=== PATIENT | female | born 1980 | race Caucasian/White ===

== ENCOUNTER 2022-11-16 07:42 | Outpatient (OUT) | payer OTHER, SELFPAY ==
--- NOTE | 2022-11-16 08:01 | XR_ITS ---
The [address] [address] Patient Name: SHARI HYDE MRN: [id number] date: 1980 Sex: F Assigned Patient Location: LAB Current Patient Location: LAB Accession/Order Number: [id number] Exam Date: 11/16/2022 08:05 Report Date: 11/16/2022 11:12 At the request of: SANDRINE NAVA Procedure: XR wrist LT min 3V PROCEDURE: XR wrist LT min 3V DATE: 11/16/2022 7:05 AM CDT COMPARISONS: None CLINICAL INDICATION: Left Wrist Pain M25.532 FINDINGS: There is no evidence of fractures or other osseous abnormalities. XR/XR wrist LT min 3V IMPRESSION: Left wrist radiographs show no evidence of abnormalities. Electronically authenticated by: SANFORD OLVERA Date: 11/16/2022 11:12
[2022-11-16 08:38] LABS: Basophils Absolute Auto 0.1 10^3/uL (0.0-0.1); Basophils Percent Auto 1.2 % (0.2-2.0); Eosinophils Absolute Auto 0.3 10^3/uL (0.0-0.7); Hematocrit 43.7 % (36.0-48.0); Hemoglobin 14.5 g/dL (12.0-16.0); Immature Granulocytes Abs Auto 0.01 10^3/uL (0.00-0.03); Immature Granulocytes Pct Auto 0.2 % (0.0-0.5); Lymphocytes Absolute Auto 1.6 10^3/uL (1.2-3.8); Lymphocytes Percent Auto 33.3 % (20.5-60.0); Mean Corpuscular HGB Conc 33.2 g/dL (29.9-35.2); Mean Corpuscular Volume 87.4 fL (81.0-99.0); Mean Platelet Volume 11.6 fL (9.5-13.5); Monocytes Absolute Auto 0.4 10^3/uL (0.3-0.8); Monocytes Percent Auto 8.1 % (1.7-12.0); Neutrophils Absolute Auto 2.5 10^3/uL (1.4-6.5); Neutrophils Percent Auto 51.2 % (43.0-75.0); Platelet Count 254 10^3/uL (150-450); Red Cell Distribution Width 12.4 % (11.0-15.0); White Blood Count 4.8 10^3/uL (4.0-11.0)
[2022-11-16 08:52] LABS: Estimated Average Glucose 94 mg/dL; Glycohemoglobin A1C 4.9 % (4.5-6.2)
[2022-11-16 09:20] LABS: Alanine Aminotransferase 25 U/L (14-59); Albumin Globulin Ratio 1.2; Albumin Level 4.1 g/dL (3.4-5.0); Alkaline Phosphatase 54 U/L (46-116); Anion Gap 13.3; Aspartate Amino Transferase 57 U/L (15-37); BUN Creatinine Ratio 14.4; Bilirubin Total 0.4 mg/dL (0.2-1.0); Calcium 9.4 mg/dL (8.5-10.1); Carbon Dioxide 27.7 mmol/L (21.0-32.0); Chloride 105 mmol/L (98-107); Chol HDL Ratio 2.1; Cholesterol 187 mg/dL (<=200); Estimated GFR (African America >60 (>=60); Estimated GFR (Non-African Ame >60 (>=60); Free T3 2.55 pg/mL (2.18-3.98); Globulin 3.4 g/dL; Glucose 77 mg/dL (74-106); HDL Cholesterol 90 mg/dL (40-60); Sodium 142 mmol/L (136-145); Thyroid Stimulating Hormone 1.538 uIU/mL (0.358-3.740); Total Protein 7.5 g/dL (6.4-8.2); Triglycerides 46 mg/dL (<=150); VLDL CHOLESTEROL 9.2 mg/dL
[2022-11-17 06:09] LABS: Progesterone <0.1 ng/mL (.); Prolactin 15.5 ng/mL (4.8-23.3)
== END 2022-11-16 07:43 | disposition home or self-care (01) ==
LOC: LAB 07:45
PROVIDERS: PCP Family Medicine; Visit Provider Family Medicine
DX: Z00.00 Encounter for general adult medical examination without abnormal findings (principal); M25.532 Pain in left wrist
CPT/HCPCS: 36415; 73110; 80053; 80061; 82306; 82670; 83001; 83036; 83540; 84144; 84146; 84436; 84443; 84481; 85025

== ENCOUNTER 2022-12-07 10:13 | Outpatient (OUT) | payer OTHER, SELFPAY ==
--- NOTE | 2022-12-07 10:16 | MM_ITS ---
Patient: SHARI HYDE Exam Date: 12/07/2022 : 1980 Gender:F Ordering : DR Arnaldo Sutton . Admission #: [id number] Family : Order #: [id number] CLICK HERE TO VIEW EXAM RADIOLOGY REPORT PROCEDURE: MM TOMOSYNTHESIS SCREENING BI COMPARISON: MG MAMM DIAGNOSTIC 3D ULISSES CAD, 06/15/2022. MG MAMM DIAGNOSTIC 3D ULISSES CAD, 06/08/2021. MAMMO POST BIOPSY UNILATERAL LEFT, 05/22/2012. DIGITIZED_MAMMO, 10/02/2009. INDICATIONS: Screening Calculator Name NCI Breast Cancer Risk Assessment Tool 5 Year Breast Cancer Risk 2.00% Lifetime Breast Cancer Risk 17.20% Personal Breast Cancer No Personal Ovarian Cancer No Treatments None Family Cancers Grandmother-paternal with lung cancer at age ~65; Grandmother-maternal with lung cancer at age ~65; Grandfather-maternal with lung cancer at age ~65. LOCATION: The [facility] BREAST COMPOSITION: Extremely dense, which lowers the sensitivity of mammography. FINDINGS: DIAGNOSTIC CATEGORY 0--INCOMPLETE: NEED ADDITIONAL IMAGING EVALUATION. RIGHT BREAST: Scattered partially circumscribed masses versus cysts are barely discernible within the very dense breast parenchyma. No significant change has occurred. Spot magnification views and ultrasound evaluation recommended. The patient would likely benefit from breast MRI. LEFT BREAST: Scattered partially circumscribed masses versus cysts are barely discernible within the very dense breast parenchyma. No significant change has occurred. Spot magnification views and ultrasound evaluation recommended. The patient would likely benefit from breast MRI. RECOMMENDATIONS: ADDITIONAL MAMMOGRAPHIC VIEWS REQUIRED: BILATERAL BREASTS - RIGHT CRANIOCAUDAL SPOT MAGNIFICATION VIEW - RIGHT OBLIQUE SPOT MAGNIFICATION VIEW - LEFT CRANIOCAUDAL SPOT MAGNIFICATION VIEW - LEFT OBLIQUE SPOT MAGNIFICATION VIEW - ULTRASOUND: BILATERAL BREASTS BREAST MRI: BILATERAL BREASTS PLEASE NOTE: A NORMAL MAMMOGRAM DOES NOT EXCLUDE THE POSSIBILITY OF BREAST CANCER. A CLINICALLY SUSPICIOUS PALPABLE LUMP SHOULD BE BIOPSIED. Dictated by: Rolando Davis M.D. on 12/08/2022 at 14:04 Approved by: Rolando Davis M.D. on 12/08/2022 at 14:12
== END 2022-12-07 10:14 | disposition home or self-care (01) ==
LOC: MAMMO 10:13
PROVIDERS: PCP Family Medicine; Visit Provider Family Medicine
DX: Z12.31 Encounter for screening mammogram for malignant neoplasm of breast (principal); Z80.1 Family history of malignant neoplasm of trachea, bronchus and lung; R92.8 Other abnormal and inconclusive findings on diagnostic imaging of breast
CPT/HCPCS: 77063; 77067

== ENCOUNTER 2022-12-20 14:57 | Outpatient (OUT) | payer OTHER, SELFPAY ==
--- NOTE | 2022-12-20 15:00 | MM_ITS ---
Patient: SHARI HYDE Exam Date: 12/20/2022 : 1980 Gender:F Ordering : DR Arnaldo Sutton . Admission #: [id number] Family : Order #: [id number] CLICK HERE TO VIEW EXAM RADIOLOGY REPORT PROCEDURE: MM TOMOSYNTHESIS DIAGNOSTIC BI COMPARISON: MM TOMOSYNTHESIS SCREENING BI, 12/07/2022. MG MAMM DIAGNOSTIC 3D ULISSES CAD, 06/15/2022. MG MAMM DIAGNOSTIC 3D ULISSES CAD, 06/08/2021. MAMMO POST BIOPSY UNILATERAL LEFT, 05/22/2012. INDICATIONS: Abnormal mammogram Calculator Name NCI Breast Cancer Risk Assessment Tool 5 Year Breast Cancer Risk 2.00% Lifetime Breast Cancer Risk 17.20% Personal Breast Cancer No Personal Ovarian Cancer No Treatments None Family Cancers Grandmother-paternal with lung cancer at age ~65; Grandmother-maternal with lung cancer at age ~65; Grandfather-maternal with lung cancer at age ~65. LOCATION: The [facility] BREAST COMPOSITION: Extremely dense, which lowers the sensitivity of mammography. FINDINGS: DIAGNOSTIC CATEGORY 0--INCOMPLETE: NEED ADDITIONAL IMAGING EVALUATION. RIGHT BREAST: Spot magnification views fail to provide better delineation of multiple hyperdense areas/masses/cysts within right breast. Ultrasound evaluation is recommended. Patient now reports that she has undergone MRI of the breasts within the year. An attempt will be made to obtain the report and/or images. Depending on MRI findings further evaluation with ultrasound may be beneficial. LEFT BREAST: Spot magnification views fail to provide better delineation of multiple hyperdense areas/masses/cysts within the left breast. Ultrasound evaluation is recommended patient now reports that she has undergone MRI of the breast within the year. An attempt will be made to obtain the report and/or images. Depending on MRI findings further evaluation with ultrasound may be beneficial. RECOMMENDATIONS: ULTRASOUND: BILATERAL BREASTS PLEASE NOTE: A NORMAL MAMMOGRAM DOES NOT EXCLUDE THE POSSIBILITY OF BREAST CANCER. A CLINICALLY SUSPICIOUS PALPABLE LUMP SHOULD BE BIOPSIED. Dictated by: Rolando Davis M.D. on 12/20/2022 at 15:21 Approved by: Rolando Davis M.D. on 12/20/2022 at 15:58
== END 2022-12-20 14:58 | disposition home or self-care (01) ==
LOC: MAMMO 14:57
PROVIDERS: PCP Family Medicine; Visit Provider Family Medicine
DX: R92.8 Other abnormal and inconclusive findings on diagnostic imaging of breast (principal)
CPT/HCPCS: 77066; G0279

== ENCOUNTER 2023-02-02 09:55 | Outpatient (OUT) | payer OTHER, SELFPAY ==
--- NOTE | 2023-02-02 10:07 | US_ITS ---
Patient: SHARI HYDE Exam Date: 02/02/2023 : 1980 Gender:F Ordering : DR SANDRINE NAVA . Admission #: [id number] Family : Order #: [id number] CLICK HERE TO VIEW EXAM This report includes an Addendum and supersedes previous reports for this exam. RADIOLOGY REPORT PROCEDURE: US BREAST BI LIMITED COMPARISON: MM TOMOSYNTHESIS DIAGNOSTIC BI, 12/20/2022. MRI June 29, 2021 INDICATIONS: Abnormal Mammogram TECHNIQUE: Breast ultrasound was performed, with evaluation focusing only on specific areas of concern. FINDINGS: DIAGNOSTIC CATEGORY 3--PROBABLY BENIGN FINDING. THE FOLLOWING FINDING(S) HAS A HIGH PROBABILITY OF A BENIGN ETIOLOGY: Bilateral whole breast ultrasound demonstrates multiple focal lesions. On the right hypoechogenic lesion at the 10 o'clock position measuring 0.9 x 0.9 x 0.7 cm. Hypoechogenic lesion at the 12 o'clock position measuring 1.0 x 0.8 x 0.6 cm. Septated cystic lesion in the 11 o'clock position measuring 4.1 x 2.8 by 1.4 cm. Additional anechoic areas measuring up to 2.4 cm, simple cysts On the left complex cystic lesions 11 o'clock position measuring 1.0 x 0.8 x 0.6 cm. At the 12 o'clock position lobular cystic lesion measuring 1.4 x 1.3 x 0.8 cm. At the 1 o'clock position septated cystic lesion measuring 1.7 x 1.7 x 0.9 cm. None of the lesions demonstrate vascular flow. I favor multiple simple and complex cysts. Given the multiplicity of lesions and indeterminate nature of some of the lesions. Follow-up bilateral breast ultrasound in 6 months is recommended to document stability RECOMMENDATIONS: ULTRASOUND: BILATERAL BREASTS PLEASE NOTE: A NORMAL ULTRASOUND EXAMINATION DOES NOT EXCLUDE THE POSSIBILITY OF BREAST CANCER. A CLINICALLY SUSPICIOUS PALPABLE LUMP SHOULD BE BIOPSIED. Dictated by: Troy Quick MD on 02/03/2023 at 08:17 Approved by: Troy Quick MD on 02/03/2023 at 08:26 ADDENDUM: RECOMMENDATIONS: SHORT TERM FOLLOW-UP ULTRASOUND BILATERAL BREASTS IN 6 MONTHS. Dictated by: Troy Quick MD on 04/05/2023 at 10:57 Approved by: Troy Quick MD on 04/05/2023 at 10:57
== END 2023-02-02 09:56 | disposition home or self-care (01) ==
LOC: US 09:55
PROVIDERS: PCP Family Medicine; Visit Provider Family Medicine
DX: R92.8 Other abnormal and inconclusive findings on diagnostic imaging of breast (principal)
CPT/HCPCS: 76642

== ENCOUNTER 2023-10-20 12:55 | Outpatient (OUT) | payer OTHER, SELFPAY ==
--- NOTE | 2023-10-20 | MM_ITS ---
Patient Name: SHARI HYDE MR#: [id number] : 1980 Exam Date: 10/20/2023 Ordering Doctor: DR SANDRINE NAVA . RADIOLOGY REPORT PROCEDURE: MM TOMOSYNTHESIS DIAGNOSTIC BI, 10/20/2023, 13:06 US BREAST BI LIMITED, 10/20/2023, 13:19 COMPARISON: MM TOMOSYNTHESIS SCREENING BI, 12/07/2022. MM TOMOSYNTHESIS DIAGNOSTIC BI, 12/20/2022. INDICATIONS: Abnormal mammogram of both breasts Calculator Name NCI Breast Cancer Risk Assessment Tool 5 Year Breast Cancer Risk 2.10% Lifetime Breast Cancer Risk 16.90% Personal Breast Cancer No Personal Ovarian Cancer No Treatments None Family Cancers Grandmother-paternal with lung cancer at age ~65; Grandmother-maternal with lung cancer at age ~65; Grandfather-maternal with lung cancer at age ~65. LOCATION: The [facility] BREAST COMPOSITION: The breasts are extremely dense, which lowers the sensitivity of mammography. FINDINGS: DIAGNOSTIC CATEGORY 4--SUSPICIOUS FOR MALIGNANCY. FINDING DOES NOT EXHIBIT CLASSIC FINDINGS OF BREAST CANCER: RIGHT BREAST: New cluster of pleomorphic microcalcifications identified at the 12 o'clock position, posterior breast. Stereotactic biopsy is recommended. Multiple benign-appearing cystic lesion on ultrasound LEFT BREAST: No significant suspicious finding. Multiple benign-appearing cystic lesions on ultrasound RECOMMENDATIONS: STEREOTACTIC BREAST BIOPSY: RIGHT BREAST PLEASE NOTE: A NORMAL MAMMOGRAM DOES NOT EXCLUDE THE POSSIBILITY OF BREAST CANCER. A CLINICALLY SUSPICIOUS PALPABLE LUMP SHOULD BE BIOPSIED. Dictated by: Troy Quick MD on 10/23/2023 at 08:45 Approved by: Troy Quick MD on 10/23/2023 at 08:49
== END 2023-10-20 12:56 | disposition home or self-care (01) ==
LOC: MAMMO 12:55
PROVIDERS: PCP Family Medicine; Visit Provider Family Medicine
DX: R92.8 Other abnormal and inconclusive findings on diagnostic imaging of breast (principal); Z80.1 Family history of malignant neoplasm of trachea, bronchus and lung; R92.0 Mammographic microcalcification found on diagnostic imaging of breast
CPT/HCPCS: 76642; 77066; G0279

== ENCOUNTER 2023-11-07 10:05 | Day surgery (SDC) | payer OTHER, SELFPAY ==
--- NOTE | 2023-11-07 10:09 | MM_ITS ---
Patient Name: SHARI HYDE MR#: [id number] : 1980 Exam Date: 11/07/2023 Ordering Doctor: DR Arnaldo Sutton . RADIOLOGY REPORT PROCEDURE: MM POST BIOPSY RT COMPARISON: MM STEREOTACTIC LOC RT, 11/07/2023. INDICATIONS: Abnormal Mammogram, Macrocalcifications BREAST COMPOSITION: FINDINGS: Post-Procedure Mammogram for Marker Placement BIOPSY MARKER: A metallic marker has been placed in the targeted location within the 12 o'clock position of the right breast BREAST FINDINGS: Postprocedural changes with density and air RECOMMENDATIONS: Dictated by: Troy Quick MD on 11/07/2023 at 12:55 Approved by: Troy Quick MD on 11/07/2023 at 13:00
--- NOTE | 2023-11-07 10:09 | MM_ITS ---
Patient Name: SHARI HYDE MR#: [id number] : 1980 Exam Date: 11/07/2023 Ordering Doctor: DR Arnaldo Sutton . RADIOLOGY REPORT PROCEDURE: MM STEREOTACTIC LOC RT COMPARISON: MM TOMOSYNTHESIS DIAGNOSTIC BI, 10/20/2023. INDICATIONS: Abnormal Mammogram, Macrocalcifications DESCRIPTION: Following informed consent, digital stereotactic mammographic views were obtained to localize the lesion. Multiple vacuum-assisted core biopsies were obtained. Specimen images were obtained to confirm proper sampling. The location of the biopsy was then marked as indicated below. FINDINGS: RECOMMENDATIONS: SPECIMEN #, LOCATION: 6 samples, right breast microcalcifications SPECIMEN IMAGE: Targeted calcifications are identified in 4 of the 5 samples BIOPSY NEEDLE: 10 gauge Revolve(r) vacuum core biopsy needle. MARKER(S) PLACED: A single spring shaped metallic marker was placed in the appropriate targeted location. MEDICATION: 4 cubic cm Buffered 1% lidocaine superficial; 10 cubic cm 1% lidocaine with epinephrine deep. COMPLICATIONS: None. PATHOLOGY / LAB: Pending. CONCLUSION: 1. Technically successful biopsy of the breast lesion. 2. Pathology results are pending. An addendum will be added when pathology results are final. Dictated by: Troy Quick MD on 11/07/2023 at 13:57 Approved by: Troy Quick MD on 11/07/2023 at 13:58
[2023-11-07 10:30] VITALS: BP 120/85; PULSE 85; O2SAT 94
[2023-11-07] MEDS: LIDOCAINE HCL 10 ML, SODIUM BICARBONATE 1 MEQ INJ (11:00)
[2023-11-07] MEDS: LIDOCAINE HCL/EPINEPHRINE 10 ML, SODIUM BICARBONATE 1 MEQ INJ (11:00)
[2023-11-07] MEDS: 0.9 % SODIUM CHLORIDE 250 ML IRR (11:00)
--- NOTE | 2023-11-07 14:48 | SUR.PREOP ---
10/27/23 Pt instructed on procedure, date, time, and prep.
== END 2023-11-07 11:35 | disposition home or self-care (01) ==
LOC: MAMMO 10:05
PROVIDERS: Radiology Diagnostic Radiology; PCP Family Medicine; Visit Provider Family Medicine
DX: D05.11 Intraductal carcinoma in situ of right breast (principal)
CPT/HCPCS: 19081; 77065; 88305; 88342; 88360

== ENCOUNTER 2023-11-21 07:33 | Outpatient (RCR) | payer OTHER, SELFPAY | END 2023-11-29 23:59 | disposition home or self-care (01) | LOC: HEMC 07:33 | PROVIDERS: PCP Family Medicine; Visit Provider Internal Medicine Hematology & Oncology | DX: D05.10 Intraductal carcinoma in situ of unspecified breast (principal); Z17.0 Estrogen receptor positive status [ER+]; F41.9 Anxiety disorder, unspecified | CPT/HCPCS: G0463 ==

== ENCOUNTER 2023-12-11 15:35 | Outpatient (OUT) | payer OTHER, SELFPAY ==
--- NOTE | 2023-12-11 15:39 | PE_ITS ---
The [address] [address] Patient Name: SHARI HYDE MRN: [id number] date: 1980 Sex: F Assigned Patient Location: PETCT Current Patient Location: PETCT Accession/Order Number: [id number] Exam Date: 12/11/2023 16:00 Report Date: 12/12/2023 20:20 At the request of: PATRICK MOYER Procedure: PET skull to mid thigh PET/CT: HISTORY: Breast cancer with no history of radiation or chemotherapy. COMPARISON: Bilateral breast ultrasound 10/20/2023. TECHNIQUE: The patient was injected with 12 mCi of F-18 fluorodeoxyglucose (FDG), and an emission scan was performed from the base of the skull to the mid thigh. Noncontrast CT was performed for attenuation correction and anatomic localization. The blood glucose level was 97 mg/dl. The uptake time was 57 minutes. FINDINGS: HEAD AND NECK: There is a physiologic distribution of activity, with no hypermetabolic foci. CHEST: The SUVmax of the mediastinum = 2.7 using the patient's body weight as the normalization method. There is a hypermetabolic nodular density within the right breast on image 96, SUV max 3.3 measuring 1 cm. There is mild activity in the anterior mediastinum, image 94, SUV max 3.3, likely due to physiologic thymic activity or benign thymic hyperplasia. There is a hypermetabolic right subpectoral lymph node on image 87 with SUV max 2.4 measuring 1.2 x 1 cm. There is no other hypermetabolic axillary, subpectoral or internal mammary lymphadenopathy. There are several photopenic defects in the right breast corresponding to cysts on CT and on the prior ultrasound. ABDOMEN AND PELVIS: There is a physiologic distribution of activity within the liver, spleen, adrenal glands, urinary tract and bowel, with no hypermetabolic foci. MUSCULOSKELETAL SYSTEM: There is a physiologic distribution of activity within the bone marrow, with no hypermetabolic foci. ADDITIONAL CT FINDINGS: There are 2 polyps or mucous retention cysts in the right maxillary sinus. There are multiple diverticula in the sigmoid colon with no acute of radiculitis. The patient is status post hysterectomy. PET/PET skull to mid thigh IMPRESSION: 1. Hypermetabolic right breast nodule consistent with malignancy. 2. Hypermetabolic right subpectoral lymph node consistent metastatic disease. 3. No distant metastases. 4. Mild activity within the anterior mediastinum, likely due to physiologic thymic activity or benign thymic hyperplasia. Electronically authenticated by: ANDER SIM Date: 12/12/2023 20:20
--- OUTSIDE RECORDS SUMMARY | 2023-12-11 15:45 | XMS_ITS | CCD ---
Author Organization [facility] Care Team Providers Care Wood Piler Name Role Phone hCarlotte Allen Unavailable MIAN ., DR HIDALGO Admitting Albaro PAPPAS ., DR HIDALGO Attending Albaro SUTTON ., DR DELUCA Primary Care Unavailable MIAN ., DR HIDALGO Consulting Albaro DAVIS, DR ROLANDO Flower Consulting Unavailable MIAN ., DR HIDALGO Admitting Albaro e MIAN ., DR HIDALGO Attending Albaro SUTTON ., DR DELUCA Primary Care Unavailable MIAN ., DR HIDALGO Consulting MD Arnaldo Rios Attending Provider [phone] Arnaldo Sutton Attending Unavailable Arnaldo Sutton Admitting Unavailable Arnaldo Sutton Primary Care Physician Pasquale MOSELEY Attending Arnaldo Callahan Referring Unavailable Allergies Allergy Classification Reported Allergen(s) Allergy Type Date of Onset Reaction(s) Facility (1 source) No Known Medication Allergies; Translations: [No Known Medication Allergies] Propensity to adverse reactions (disorder) [facility] Repository Medications Current Medications Medication Drug Class(es) Dates Sig (Normalized) Sig (Original) [id number] 200 actuat albuterol 0.09 mg/actuat metered dose inhaler (1 source) beta2-Adrenergic Agonist Start: 06-08-2022 take 2 puff(s) by inhalation every four hours as needed Albuterol Sulfate HFA 108 (90 Base) MCG/ACT 2 puffs as needed Inhalation every 4 hrs Jun, Active amoxicillin 500 mg oral capsule (2 sources) Penicillin-class Antibacterial Start: 08-20-2023 take 500 mg by mouth twice daily Amoxicillin Active 500 MG PO Twice daily August 20, 2023 12:00am azithromycin 250 mg oral tablet (1 source) Macrolide Antimicrobial Start: 06-08-2022 take 2 tablets by mouth once daily, then take 1 tablet by mouth once daily, then take 2-5 tablets by mouth once daily Zithromax Z-Rafael 250 MG 2 tablets on day 1, then 1 tablet on days 2-5 Orally once a day for 5 days Jun, Active 12 hr buPROPion hydrochloride 150 mg extended release oral tablet (4 sources) Aminoketone Start: 11-20-2023 take 1 tablet by mouth once daily buPROPion 150 mg ER Tab 150 mg = 1 tab(s), Oral, Daily, Refills(s) 0 Start Date: 11/20/23 Status: Ordered Start: 08-20-2023 Bupropion Hcl Active MG PO August 20, 2023 12:00am Wellbutrin Activ e cetirizine hydrochloride 10 mg oral tablet (1 source) Histamine-1 Receptor Antagonist Start: 12-01-2023 take 1 tablet by mouth once daily cetirizine 10 mg Tab 10 mg = 1 tab(s), Oral, Daily, Refills(s) 0 Start Date: 12/01/23 Status: Ordered methylPREDNISolone 4 mg oral tablet (1 source) Corticosteroid Start: 06-08-2022 methylPREDNISolone 4 MG as directed Orally Jun, Active Problems Active Problems Problem Classification Problem Date Documented Date Episodic/Chronic Acute bronchitis (1 source) Acute bronchitis, unspecified Episodic Anxiety disorders (1 source) Anxiety 11-20-2023 Chronic Asthma (1 source) Asthma 11-20-2023 Chronic Biliary tract disease (2 sources) Biliary calculus; Translations: [Chronic cholecystitis] 01-07-2019 Episodic Cancer of breast (2 sources) Intraductal carcinoma in situ of right breast; Translations: [Intraductal carcinoma in situ of right breast] Onset: 12-01-2023 Chronic Immunizations and screening for infectious disease (1 source) Encounter for screening for human papillomavirus (HPV); Translations: [ENC SCREENING HUMAN PAPILLOMAVIRUS] Onset: 08-06-2022 Episodic Mood disorders (1 source) Depressive disorder 11-20-2023 Chronic Nonmalignant breast conditions (5 sources) Diffuse cystic mastopathy of unspecified breast; Translations: [Fibrocystic disease of breast] Onset: 06-20-2022 Chronic Nonmalignant breast conditions (7 sources) Solitary cyst of right breast; Translations: [Unspecified lump in the left breast, upper outer quadrant] Onset: 06-15-2022 Episodic Other screening for suspected conditions (not mental disorders or infectious disease) (4 sources) Encounter for screening for malignant neoplasm of cervix; Translations: [ENC SCREENING MALIG NEOPLASM CERV] Onset: 08-02-2022 Episodic Other upper respiratory disease (1 source) Seasonal allergic rhinitis 11-20-2023 Chronic Other upper respiratory infections (1 source) Acute pharyngitis, unspecified Episodic Residual codes; unclassified (1 source) Family history of malignant neoplasm of trachea, bronchus and lung; Translations: [FAM HX MALIG NEOPLSM TRACH BRON LNG] Onset: 06-20-2022 Episodic Residual codes; unclassified (1 source) Insomnia 11-20-2023 Episodic Unclassified (1 source) Breast finding 12-01-2023 Past or Other Problems Problem Classification Problem Date Documented Da te Episodic/Chronic Unclassified (1 source) Cough R05.9 Results Test Name Value Interpretation Reference Range Facility Ambulatory Visit Summaryon 0 12-01-2023 Ambulatory Visit Summary Ambulatory Visit Summary SHARI DIAL :1980 Visit Date:12/01/2023 Ambulatory Visit Instructions Your Diagnosis 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 Discharge Vitals Heart Rate (Peripheral) 74 Respiratory Rate 16 Blood Pressure 120/81 Height 177.8 cm Height 70 in Weight 68.9 kg Weight 151.58 lb BMI 21.79 Medications What How Much When Instructions Unchanged buPROPion (buPROPion 150 mg ER Tab) 1 Tablets By Mouth Every day Contact prescribing physician if questions or concerns Unchanged cetirizine (cetirizine 10 mg Tab) 1 Tablets By Mouth Every day Contact prescribing physician if questions or concerns Allergies No Known Allergies No Known Medication Allergies Problems Ongoing - Any problem that you are currently receiving treatment for. 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 Please share your experience with us by completing your survey. We appreciate your feedback and thank you for choosing us for your care. Normal [facility] 11-07-2023 L Specimen: [id number] Received: 11/08/23 Status: JAMES Reodin Num: [id number] Spec Type: Surgical Subm Dr: Arnaldo Sutton MD Tissues: A BREAST CORE NO CALCS (RT BREAST BX) Procedures: HE/4, Gross/Micro L4, CALPONIN/2, ER, MS Age/ Patient Sex Location Account Attending Physician Shari Dial 43/F LABELL [id number] Arnaldo Sutton MD SPEC NUM: [id number] RECD: 11/08/23 STATUS: JAMES KAY NUM: [id number] YASMEEN: 11/07/23- SUBM DR: Arnaldo Sutton MD ENTERED: 11/08/23 [facility] DR: Eva Machado SPEC TYPE: Surgical DEPT: ANNA DE ANDA ORDERED: HE/4, Gross/Micro L4, CALPONIN/2, ER, MS ORDERED: HE/4, Gross/Micro L4, CALPONIN/2, ER, MS Pathological Diagnosis Right breast microcalcification at 12:00, stereotactic core biopsies: -Ductal carcinoma in situ (DCIS) -Tumor size is at least 0.7 cm -ER+, MS+ -Please also see synoptic report below Cancer summary: LATERALITY: RIGHT HISTOLOGICAL TYPE: DUCTAL CARCINOMA IN SITU (DCIS) TUMOR SIZE MEASURED ON SLIDE: AT LEAST 0.7 CM ARCHITECTURAL PATTERN: CRIBRIFORM, COMEDO, NEAR SOLID, PAPILLARY NUCLEAR GRADE: G2-3 NECROSIS: IDENTIFIED, COMEDO AND FOCAL CALCIFICATION: IDENTIFIED, WITHIN DCIS LOBULAR CARCINOMA IN SITU (LCIS): NOT IDENTIFIED TUMOR MARKERS ON (A2) -ER positive, 70-80% of tumor nuclei, 2+ -MS positive, 90-100% of tumor nuclei, 3+ ---- Specimen: [id number] Received: 11/08/23 Status: JAMES Kay Num: [id number] Spec Type: Surgical Subm Dr: Arnaldo Sutton MD Tissues: A BREAST CORE NO CALCS (RT BREAST BX) Procedures: HE/4, Gross/Micro L4, CALPONIN/2, ER, MS ---- Patient: YojanaShari L [id number] (Continued) ---- Specimen: [id number] Received: 11/08/23 (Continued) Pathological Diagnosis (Continued) Signed (signature on file) Mckenna Holley MD 11/14/23 1247 ---- Specimen: [id number] Received: 11/08/23 Status: JAMES Kay Num: [id number] Spec Type: Surgical Subm Dr: Arnaldo Sutton MD Tissues: A BREAST CORE NO CALCS (RT BREAST BX) Procedures: HE/4, Gross/Micro L4, CALPONIN/2, ER, MS ---- Patient: Shari Dial Destinee [id number] (Continued) ---- Specimen: [id number] Received: 11/08/23 (Continued) Pathological Diagnosis (Continued) Note: -Calponin immunostain with appropriate control are also performed on A1 and A2, supporting the above interpretation -Rare small disrupted and/or displaced tumor clusters are otherwise negative for myoepithelial cells Clinical Information Right breast microcalcifications Gross Description Received in formalin labeled with the patient's name, date of and right breast 12:00 calcs are 7 fibrofatty tissue cores ranging from 2.1 cm to 1.2 cm in length by 0.3 cm in diameter, entirely submitted in A1?A2. Time of collection: 11/07/2023 at 1105 Time placed in formalin: 11/07/2023 at 1112 Placed in 10% neutral buffered formalin Time at gross: 11/08/2023 at 1727 TW Microscopic Description Microscopic examinations are performed supporting the above interpretation CPT Codes [id number] ---- ---- Specimen: [id number] Received: 11/08/23-0817 Status: JAMES Eliza Num: [id number] Spec Type: Surgical Subm Dr: Arnaldo Sutton MD Tissues: A BREAST CORE NO CALCS (RT BREAST BX) Procedures: AMY/Von, Gross/Micro L4, CALPONIN/2, ER, MS ---- Patient: Shari Dial [id number] (Continued) ---- Signed (signature on file) Mckenna Holley MD 11/14/23 1247 Normal [facility] Influenza virus A and B and SARS-CoV-2 (COVID-19) RNA panel - Respiratory system specon 08-20-2023 Influenza virus A and B RNA and SARS-CoV-2 (COVID-19) N gene panel RICHMOND+probe (Resp) Negative [facility] - Microbiology an d Antimicrobial susceptibilityon 08-20-2023 SARS-CoV-2 (COVID-19) RNA RICHMOND+probe Ql (Unsp spec) Negative [facility] No Panel Informationon 08-19 POC Influenza B (RICHMOND) Negative [facility] No Panel InformationOrdered By: Francisca Silvestre on 08-20-2023 Quick Strep (POC) [facility] PAP ACOG PANEL 2: 30 to 65on 08-09-2022 . . Normal [facility] Comment on above: Result Comment: Perf ormed at: WB Performed By: #### [id number] #### [facility] [address] [address] [address] Carol Holley Age Gdln ACOG Testing 30-65 Normal [facility] Comment on above: Performed By: #### [id number] #### [facility] [address] [address] [address] Carol Holley DIAGNOSIS: Comment [facility] Comment on above: Result Comment: NEGA TIVE FOR INTRAEPITHELIAL LESION OR MALIGNANCY. Performed at: WB Performed By: #### [id number] #### [facility] [address] [address] [address] Carol Holley HPV Aptima Negative Normal Negative [facility] Comment on above: Result Comment: This nucleic acid amplification test detects fourteen high-risk HPV types (16,18,31,33,35,39,45,51,52,56,58,59,66,68) without differentiation. Performed at: =G Performed By: #### [id number] #### [facility] [address] [address] [address] Carol Holley HPV Genotype Reflex Comment Normal [facility] Comment on above: Result Comment: Crit eria not met, HPV Genotype not performed. Performed at: WB Performed By: #### [id number] #### [facility] [address] [place] [address] Dr. Carol Holley Methodology: Comment Normal [facility] Comment on above: Result Comment: This liquid based ThinPrep(R) pap test was screened with the use of an image guided system. Performed at: WB Performed By: #### [id number] #### [facility] [address] [place] [address] Dr. Carol Holley Note: Comment Normal [facility] Comment on above: Result Comment: The Pap smear is a screening test designed to aid in the detection of premalignant and malignant conditions of the uterine cervix. It is not a diagnostic procedure and should not be used as the sole means of detecting cervical cancer. Both false-positive and false-negative reports do occur. . Performed at: WB Performed By: #### [id number] #### [facility] [address] [place] [address] Dr. Carol Holley Performed by: Comment Normal [facility] Comment on above: Result Comment: Juan C Le, Tiler'S Assistant (ASCP) Performed at: WB Performed By: #### [id number] #### [facility] [address] [place] [address] Dr. Carol Holley Specimen adequacy: Comment Normal [facility] Comment on above: Result Comment: Sati sfactory for evaluation. Endocervical and/or squamous metaplastic cells (endocervical component) are present. Performed at: WB Performed By: #### [id number] #### [facility] [address] [place] [address] Dr. Carol Holley MG MAMM DIAGNOSTIC 3D ULISSES CA Don 06-15-2022 MG MAMM DIAGNOSTIC 3D ULISSES CAD Patient: SHARI DIAL Exam Date: 06/15/2022 : 1980 Gender:F Ordering : DR ROCKY PAPPAS . Admission #: [id number] Family : Order #: [id number] CLICK HERE TO VIEW EXAM RADIOLOGY REPORT PROCEDURE: MAMMOGRAM DIAGNOSTIC 3D BILATERAL CAD, 06/15/2022, 13:44 ULTRASOUND BREAST LEFT LIMITED, 06/15/2022, 14:22 COMPARISON: US BREAST RIGHT LIMITED, 07/17/2020. DIGITIZED_MAMMO, 10/02/2009. MG MAMM DIAGNOSTIC 3D ULISSES CAD, 06/08/2021. US BREAST RIGHT LIMITED, 06/08/2021. INDICATIONS: Fibrocystic disease of breast Calculator Name NCI Breast Cancer Risk Assessment Tool 5 Year Breast Cancer Risk 2.00% Lifetime Breast Cancer Risk 17.20% Personal Breast Cancer No Personal Ovarian Cancer No Treatments None Family Cancers Grandmother-paternal with lung cancer at age 65; Grandmother-maternal with lung cancer at age 65; Grandfather-maternal with lung cancer at age 65. LOCATION: [facility] BREAST COMPOSITION: Extremely dense, which lowers the sensitivity of mammography. FINDINGS: DIAGNOSTIC CATEGORY 2--BENIGN FINDING: RIGHT BREAST: No significant suspicious finding. No significant change has occurred. LEFT BREAST: Skin surface marker localizing patient's palpable lump to the posterior upper-outer quadrant. Extremely dense breast parenchyma limits evaluation, but there appears to be slightly greater density in this area. Ultrasound evaluation demonstrates a benign-appearing 2.6 cm cyst corresponding to patient's palpable lump. Annual screening mammography recommended. RECOMMENDATIONS: ROUTINE MAMMOGRAM AND CLINICAL EVALUATION IN 12 MONTHS. PLEASE NOTE: A NORMAL MAMMOGRAM DOES NOT EXCLUDE THE POSSIBILITY OF BREAST CANCER. A CLINICALLY SUSPICIOUS PALPABLE LUMP SHOULD BE BIOPSIED. Dictated by: Rolando Davis M.D. on 06/15/2022 at 14:36 Approved by: Rolando Davis M.D. on 06/15/2022 at 14:40 Normal [facility] US BREAST LEFT LIMITEDon US BREAST LEFT LIMITED Patient: SHARI DIAL Exam Date: 06/15/2022 : 1980 Gender:F Ordering : DR ROCKY PAPPAS . Admission #: [id number] Family : Order #: [id number] CLICK HERE TO VIEW EXAM RADIOLOGY REPORT PROCEDURE: MAMMOGRAM DIAGNOSTIC 3D BILATERAL CAD, 06/15/2022, 13:44 ULTRASOUND BREAST LEFT LIMITED, 06/15/2022, 14:22 COMPARISON: US BREAST RIGHT LIMITED, 07/17/2020. DIGITIZED_MAMMO, 10/02/2009. MG MAMM DIAGNOSTIC 3D ULISSES CAD, 06/08/2021. US BREAST RIGHT LIMITED, 06/08/2021. INDICATIONS: Fibrocystic disease of breast Calculator Name NCI Breast Cancer Risk Assessment Tool 5 Year Breast Cancer Risk 2.00% Lifetime Breast Cancer Risk 17.20% Personal Breast Cancer No Personal Ovarian Cancer No Treatments None Family Cancers Grandmother-paternal with lung cancer at age 65; Grandmother-maternal with lung cancer at age 65; Grandfather-maternal with lung cancer at age 65. LOCATION: [facility] BREAST COMPOSITION: Extremely dense, which lowers the sensitivity of mammography. FINDINGS: DIAGNOSTIC CATEGORY 2--BENIGN FINDING: RIGHT BREAST: No significant suspicious finding. No significant change has occurred. LEFT BREAST: Skin surface marker localizing patient's palpable lump to the posterior upper-outer quadrant. Extremely dense breast parenchyma limits evaluation, but there appears to be slightly greater density in this area. Ultrasound evaluation demonstrates a benign-appearing 2.6 cm cyst corresponding to patient's palpable lump. Annual screening mammography recommended. RECOMMENDATIONS: ROUTINE MAMMOGRAM AND CLINICAL EVALUATION IN 12 MONTHS. PLEASE NOTE: A NORMAL MAMMOGRAM DOES NOT EXCLUDE THE POSSIBILITY OF BREAST CANCER. A CLINICALLY SUSPICIOUS PALPABLE LUMP SHOULD BE BIOPSIED. Dictated by: Rolando Davis M.D. on 06/15/2022 at 14:36 Approved by: Rolando Davis M.D. on 06/15/2022 at 14:40 Normal [facility] Quick Strepon 06-08-2022 S. pyogenes Org specific cx Ql (Throat) Negative [facility] Other Quick Strep [facility] Other Vital Signs Date Time Vital Sign Value Performing Clinician Facility 12-01-2023 09:24-0400 Blood Pressure Location Pasquale MOSELEY [facility] [place] 12-01-2023 09:24-0400 Diastolic blood pressure 81 mm[Hg] Pasquale MOSELEY [facility] [place] 12-01-2023 09:24-0400 Heart rate 74 /min Pasquale MOSELEY [facility] [place] 12-01-2023 09:24-0400 Respiratory rate 16 /min Pasquale MOSELEY [facility] [place] 12-01-2023 09:24-0400 Systolic blood pressure 120 mm[Hg] Pasquale MOSELEY [facility] [place] 08-20-2023 09:54-0400 Body height 177.8 cm [facility] 08-20-2023 09:54-0400 Body mass index (BMI) [Ratio] 20.7 kg/m2 [facility] 08-20-2023 09:54-0400 Body temperature 97.3 [degF] [facility] 08-20-2023 09:54-0400 Body weight 65.77 kg [facility] 08-20-2023 09:54-0400 Heart rate 96 /min [facility] 08-20-2023 09:54-0400 Respiratory rate 18 /min [facility] 08-20-2023 09:54-0400 SaO2% (BldA) [Mass fraction] 98 % [facility] 06-08-2022 10:40-0500 Body height 177.8 cm Charlotte Allen Other [facility] Other 06-08-2022 10:40-0500 Body mass index (BMI) [Ratio] 23.1 kg/m2 Charlotte Allen Other [facility] Other 06-08-2022 10:40-0500 Body temperature 98.4 [degF] Charlotte Allen Other [facility] [facility] Other 06-08-2022 10:40-0500 Body weight 73.03 kg Charlotte Allen Other [facility] Other 06-08-2022 10:40-0500 Respiratory rate 18 /min Charlotte Allen Other [facility] Other 06-08-2022 10:40-0500 SaO2% (BldA) [Mass fraction] 97 % Charlotte Allen Other [facility] Other Encounters Encounter Date Encounter Type Care Provider Facility Start: 12-01-2023 End: 12-01-2023 ambulatory Pasquale MOSELEY Facility:[facility] Start: 12-01-2023 End: 12-01-2023 Patient encounter procedure Pasquale MOSELEY [facility] [place] Start: 11-07-2023 End: 11-07-2023 ambulatory Arnaldo Sutton [facility] Work Phone: Start: 11-07-2023 End: 11-07-2023 Departed Referred MD Arnaldo Sutton Work Phone: [facility] Start: 08-20-2023 End: 08-20-2023 ambulatory [facility] Work Phone: Start: 08-20-2023 End: 08-20-2023 Patient encounter procedure [facility] Work Phone: Start: 08-02-2022 End: 08-02-[address] ROCKY PAPPAS . Facility: Start: 06-15-2022 End: 06-16-[address] ROCKY PAPPAS . Facility: Start: 06-08-2022 End: 06-08-2022 ambulatory Charlotte Allen Other [facility] Other Start: 06-08-2022 Office outpatient ne w 20 minutes Charlotte Allen [facility] Procedures Date Procedure Procedure Detail Performing Clinician Start: 11-07-2023 Stereotactically ady ded core needle biopsy of breast Pasquale MOSELEY Start: 08-20-2023 Quick Strep (POC) Start: 05-01-2012 Mammography and biop sy of left breast Pasquale MOSELEY Abdominal hysterectomy Anthony MOSELEY Cholecystectomy Pasquale NILL Transcervical sterilization Pasquale NILL Plan of Treatment Date Care Activity Detail Author [facility] Immunizations Immunization Date Immunization Notes Care Provider Fa cility 02-02-2023 influenza virus vaccine, unspecified formulation Pasquale NILL [facility] 03-23-2021 SARS-CoV-2 (COVID-19 ) mRNA-1273 vaccine Pasquale NILL [facility] 07-24-2020 SARS-CoV-2 (COVID-19 ) mRNA-1273 vaccine Pasquale NILL [facility] Comment on above: Result Comment: 2023: TPV23 06-24-2020 SARS-CoV-2 (COVID-19 ) mRNA-1273 vaccine Pasquale SANCHEZL [facility] Comment on above: Result Comment: 2023: TPV23 Payers Date Payer Category Payer Self-pay [id number] 2019 Unknown [id number] 1980 Unknown [id number] 1980 Unknown [id number] 1980 Unknown [id number] 1959 Unknown [id number] Unknown [id number] Social History Date Type Detail Facility Sex Assigned At [facility] Start: 08-20-2023 End: 12-01-2023 Tobacco smoking status NHIS Never smoked tobacco (finding) [facility] Start: 1980 Sex Assigned At Female [facility] Tobacco smoking status Never [facility] [place] Functional Status Date Assessment Result Facility 12-01-2023 Functional Status N/A [facility] [place] Clinical Note 12-01-2023 Note Date & Type Note Facility 12-01-2023 Note General Surgery Offi ce/Clinic Note Chief Complaint consultation for right breast DCIS HPI Staff 43 year old female presents on consultation from Dr. Sutton for DCIS right breast. Denies noting palpable lump. Denies breast pain. Denies skin changes other than bruising and swelling post biopsy. Denies nipple discharge or inversion. No known family history of colon cancer. 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 patient was seen by medical Oncology, genetic testing has been done, and is pending; patient is interested in bilateral mastectomy with immediate reconstruction due to her long h/o fibrocystic disease, dense breast tissue, and need for frequent surveillance and biopsies. Review of Systems PHQ Score Initial Depression Screen Score: 0 SCORE ROS - Provider Constitutional: no fever, no sweats, no weight loss. Eyes: no glasses, no blurred vision, no visual loss. ENMT: no dentures, no hoarseness, no swallowing difficulties, no hearing loss, no ear infection(s), no nose bleeds. Cardiovascular: normal blood pressure, no chest pain, regular heartbeat, no heart murmur. Respiratory: no shortness of breath, no cough, no asthma, no wheezing. Gastrointestinal: no nausea, no vomiting, no diarrhea, no constipation, no blood in stool, no change in bowel habits, no abdominal pain, no hepatitis. Genitourinary: no kidney stones, no urine infection, no dysuria. Musculoskeletal: no pain, no weakness. Skin: no changing moles, no rash, no skin lumps. Neurologic: no seizures, no epilepsy, no headache. Psychiatric: no emotional or psychiatric problem. Heme/Lymph: no bleeding problems, no anemia, no blood clots, no transfusions. Allergy/Immunologic: no swollen lymph nodes/glands, no IV drug abuse. Other: Additional ROS info: Except as noted in the above Review of Systems and in the History of Present Illness, all other systems have been reviewed and are negative or noncontributory. Physical Exam Vitals & Measurements HR: 74(Peripheral) RR: 16 BP: 120/81 HT: 70 in HT: 177.8 cm WT: 68.9 kg WT: 151.58 lb BMI: 21.79 HEENT: normal conjunctiva, sclera clear, no scleral icterus, EOM intact, PERRLA. oral mucosa moist without lesions Neck: trachea midline , no mass, symmetric, no thyromegaly or nodules. no adenopathy Respiratory: lungs CTA, respirations non labored. Cardiovascular: regular rate and rhythm, no murmur, , no pedal edema or varicosities. Chest (Breasts): right breast with 1.5 cm hematoma at biopsy site, 12 o'clock, resolving ecchymosis, no drainage or cellulitis; no nipple changes or discharge, mild tenderness; areas of dense breast tissue bilaterally, no dominant masses; left breast without skin or nipple changes, nontender. Gastrointestinal: soft, non distended, no tenderness, no masses, no palpable hernias, diastasis recti no, no hepatosplenomegaly. normal bs Lymphatic: no cervical adenopathy, no axillary adenopathy, no supraclavicular adenopathy. Musculoskeletal: gait, digits and nails without infection, nodes, cyanosis, clubbing. Skin: no rashes, no lesions, no ulcers, no subcutaneous nodules, induration. Psychiatric/Neuro: oriented to time, place, person, judgement normal, affect appropriate for age, insight intact, no focal deficits. Tests: labs reviewed, x-rays reviewed, review of old records completed , Discussed surgical options, risks, and possible complications with patient. Assessment/Plan 1. 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 2. Dense breast tissue (R92.30: Dense breasts, unspecified) see # 1 3. Fibrocystic breast changes, bilateral (N60.11: Diffuse cystic mastopathy of right breast) see # 1 Diffuse cystic mastopathy of left breast (N60.12: Diffuse cystic mastopathy of left breast) Orders: [facility] External Ambulatory Referral Follow-up No qualifying data a (more content not included)... [facility] Comment on above: Result Comment: Elec tronically Signed By: LORELEI GUIDRY, Pasquale Zambrano.le\Date and Time Signed: 12/01/23 15:07 EDT Evaluation note 06-08-2022 Note Date & Type Note Facility 06-08-2022 Evaluation note Encounter Date Diagnosis Assessment Notes Jun, Cough (ICD-10 - R05.9) covid and flu neg, see above. Jun, Acute bronchitis, unspecified organism (ICD-10 - J20.9) Abx and steroid as directed with food. Pt is to use inhaler as prescribed prn for cough and wheeze. Supportive care as directed. Push fluids and rest. Pt denied work note today. Pt is to take otc antipyretic prn for fever and aches. Pt is to take otc cough suppressant prn for cough. Pt is to be re-evaluated after tx if sx worsen or don't improve by pcp or UC. Discussed sx of resp distress - wheeze, sob, difficulty breathing and swallowing, chest tightness, or chest pain. Pt is to f/u immediately in ER if these sx present. Pt is to call the office with any questions or concerns regarding dx and tx. Pt understood and agreed to tx plan. Jun, Sore throat (ICD-10 - J02.9) strep neg, see above. [facility] Other Evaluation + Plan note Note Date & Type Note Facility Evaluation + Plan note [facility] General Surgery [place] Evaluation note Note Date & Type Note Facility Evaluation note No assessment information availa [facility] Work Phone: History general Narrative - Reported Note Date & Type Note Facility History general Narrative - Reported Type Medical History Anxiety Medical History Depression Surgical History hysterectomy Surgical History laparoscopy Hospitalization History No know Hospitalization history [facility] [employer] Other Hospital course Narrative Note Date & Type Note Facility Hospital course Narrative No data available for this section [facility] [place] [facility] Discharge instructions Note Date & Type Note Facility Hospital Discharge instructions No data available for this section [facility] [place] Progress note Note Date & Type Note Facility Progress note No data available for this section [facility] Reason for referral (narrative) Note Date & Type Note Facility Reason for referral (narrative) Referred by: LORELEI GUIDRY, Pasquale Flower [facility] [place] Summary Purpose Family History No Family History Records Found Relationship Condition Age at Onset Recorded Date/T chris father Malignant neoplasm Unknown Advance Directives No Advanced Directives Records Found Advance Directive Response Recorded Date/ Time Advance Directives No June 1:28pm Chief Complaint and Reason for Visit Chief Complaint Sore throat, congest ion Chief Complaint Sore throat, congest ion Unknown Additional Source Comments REASON FOR VISIT (unrecogniz ed section and content) SORE THROAT EAR PAIN INFORMATION SOURCE (unrecogn ized section and content) DATE CREATED AUTHOR 08/09/2022 [facility] DATE CREATED AUTHOR AUTHOR'S ORGANIZ ATION 11/14/2023 [facility] DATE CREATED AUTHOR AUTHOR'S ORGANIZ ATION [facility] (unrecognized sec tion and content) Team Status: Active Member Role Status Dates Arnaldo Sutton MD Primary Care Provider Active Team Status: Inactive Member Role Status Dates Arnaldo Sutton MD Primary Care Provider Active Start: August 20, 2023 End: August 20, 2023 Francisca Silvestre APRN Attending Provider Active Start: August 20, 2023 End: August 20, 2023 Team Status: Inactive Member Role Status Dates Arnaldo Sutton MD Attending Provider Active Sta rt: November 07, 2023 End: November 07, 2023 Goals (unrecognized section and content) Goals may be documented in a n alternate section FOR RECORDS PERTAINING TO PATIENTS WHO ARE OR HAVE BEEN ENROLLED IN A CHEMICAL DEPENDENCY/SUBSTANCEABUSE PROGRAM, SOME INFORMATION MAY BE OMITTED. This clinical summary was aggregated from multiple sources. Caution should be exercised in using it in the provision of clinical care. This summary normalizes information from multiple sources, and as a consequence, information in this document may materially change the coding, format and clinical context of patient data. In addition, data may be omitted in some cases. CLINICAL DECISIONS SHOULD BE BASED ON THE PRIMARY CLINICAL RECORDS. [facility] [employer] [facility]. provides no warranty or guarantee of the accuracy or completeness of information in this document.
== END 2023-12-11 15:36 | disposition home or self-care (01) ==
LOC: PETCT 15:36
PROVIDERS: PCP Family Medicine; Visit Provider Internal Medicine Hematology & Oncology
DX: D05.10 Intraductal carcinoma in situ of unspecified breast (principal); C50.911 Malignant neoplasm of unspecified site of right female breast
CPT/HCPCS: 78815; A9552

== ENCOUNTER 2023-12-12 07:38 | Outpatient (RCR) | payer OTHER, SELFPAY | END 2023-12-30 23:59 | disposition home or self-care (01) | LOC: HEMC 07:38 | PROVIDERS: PCP Family Medicine; Visit Provider Internal Medicine Hematology & Oncology | DX: D05.10 Intraductal carcinoma in situ of unspecified breast (principal) | CPT/HCPCS: G0463 ==

== ENCOUNTER 2024-02-06 07:54 | Outpatient (RCR) | payer OTHER, SELFPAY | END 2024-02-29 23:59 | disposition home or self-care (01) | LOC: HEMC 07:54 | PROVIDERS: PCP Family Medicine; Visit Provider Internal Medicine Hematology & Oncology | DX: D05.11 Intraductal carcinoma in situ of right breast (principal); Z90.710 Acquired absence of both cervix and uterus; Z90.13 Acquired absence of bilateral breasts and nipples; Z80.1 Family history of malignant neoplasm of trachea, bronchus and lung; D64.9 Anemia, unspecified; D72.829 Elevated white blood cell count, unspecified; F41.9 Anxiety disorder, unspecified | CPT/HCPCS: G0463 ==

== ENCOUNTER 2024-11-29 06:47 | Outpatient (OUT) | payer OTHER, SELFPAY ==
--- OUTSIDE RECORDS SUMMARY | 2024-11-29 06:52 | XMS_ITS | CCD ---
Author Organization [facility] CliniSyaz Care Team Providers Care Newspaper Writer Name Role Phone Charlotte Allen Unavailable MIAN ., DR HIDALGO Admitting Unavailabl e KARASIK ., DR HIDALGO Attending Unavailpablo e ELIJAH ., DR DELUCA Primary Care Unavailable KARASIK ., DR HIDALGO Consulting Unavailabl e ZIEBMAGDI, DR ANDER Flower Consulting Unavailable KARASIK ., DR HIDALGO Admitting Unavailabl e KARASIK ., DR HIDALGO Attending Unavailpablo e JAYMEY ., DR DELUCA Primary Care Unavailable KARIVANK ., DR HIDALGO Consulting UnavailMD Sandrine Valentin Attending Provider Sandrine Nava Attending Unavailable Jaymey, Sandrine M Admitting Unavailable Jaymey, Sandrine Primary Care Physician Pasquale MOSELEY Attending Unavailable Elijah Sandrine Referring Unavailable Unavailable Primary Care Provider Sandrine Rios MD Primary Care Provider [phone] Sandrine Nava MD Primary Care Provider [phone] Sandrine Nava MD Primary Care Provider JOHNSON, FREDA A Attending Unavailable BYRON, ADE Referring Unavailable DEN CARPIO Attending Unavail able JOHNSON, FREDA A Referring Unavailable RAEVASILIY Attending Unavailable HOY, SANDRINE M Primary Care Unavailable VASILIY RAE Attending Unavailable HOY, SANDRINE M Referring Unavailable HOY, SANDRINE M Primary Care Unavailable DEBBIE YUSUF Attending Unavailable HOY, SANDRINE M Referring Unavailable HOY, SANDRINE M Primary Care Unavailable DEN CARPIO Attending Unavail able HOY, SANDRINE M Referring Unavailable HOY, SANDRINE M Primary Care Unavailable DEN CARPIO Attending Unavail able HOY, SANDRINE M Referring Unavailable HOY, SANDRINE M Primary Care Unavailable RAEVASILIY Attending Unavailable HOY, SANDRINE M Referring Unavailable HOY, SANDRINE M Primary Care Unavailable RAEVASILIY Attending Unavailable HOY, SANDRINE M Referring Unavailable HOY, SANDRINE M Primary Care Unavailable SUGGDEN Attending Unavail able HOY, SANDRINE M Referring Unavailable HOY, SANDRINE M Primary Care Unavailable BYRON, ADE Referring Unavailable JOHNSON, FREDA A Referring Unavailable HOY, SANDRINE M Primary Care Unavailable JOHNSON, FREDA A Attending Unavailable JOHNSON, FREDA A Referring Unavailable SUGGDEN Admitting Unavail able VILMA RESEDNIZ Attending Unavailabl e HOY, SANDRINE M Primary Care Unavailable HOY, SANDRINE M Referring Unavailable HOY, SANDRINE M Primary Care Unavailable DEN CARPIO Admitting Unavail able SUGGDEN Attending Unavail able HOY, SANDRINE M Primary Care Unavailable LEANNE KHAN Attending Unavailable HOY, SANDRINE M Primary Care Unavailable HOY, SANDRINE M Referring Unavailable HOY, SANDRINE M Primary Care Unavailable Allergies Allergy Classification Reported Allergen(s) Allergy Type Date of Onset Reaction(s) Facility (1 source) No Known Medication Allergies; Translations: [No Known Medication Allergies] Propensity to adverse reactions (disorder) [facility] Repository Medications Current Medications Medication Drug Class(es) Dates Sig (Normalized) Sig (Original) [id number] 200 actuat albuterol 0.09 mg/actuat metered dose inhaler (1 source) beta2-Adrenergic Agonist Start: 06-08-2022 take 2 puff(s) by inhalation every four hours as needed Albuterol Sulfate HFA 108 (90 Base) MCG/ACT 2 puffs as needed Inhalation every 4 hrs Jun, Active ascorbic acid 1000 mg oral tablet (12 sources) Vitamin C take 1 tablet by mouth in the morning ascorbic acid, vitamin C, (VITAMIN C) 1000 mg tablet Indications: vitamin C deficiency Take 1 tablet (1,000 mg total) by mouth in the morning. Indications: inadequate vitamin C. Active azithromycin 250 mg oral tablet (1 source) [...] hydrochloride 150 mg extended release oral tablet (20 sources) Aminoketone Start: 07-07-2024 take 1 tablet by mouth every twenty-four hours Bupropion Hcl 150 mg tablet extended release 24 hr Active MG PO July 07, 2024 1:00am Start: 11-20-2023 take 1 tablet by tomas th once daily buPROPion 150 mg ER Tab 150 mg = 1 tab(s), Oral, Daily, Refills(s) 0 Start Date: 11/20/23 Status: Ordered Start: 08-20-2023 End: 05-14-2024 take 1 tablet by mouth every twenty-four hours Bupropion Hcl 150 mg tablet extended release 24 hr Discontinued MG PO August 20, 2023 12:00am May 14, 2024 10:42am Start: 08-20-2023 Bupropion Hcl Active MG PO August 20, 2023 12:00am take 1 tablet by tomas th once daily in the morning buPROPion XL (WELLBUTRIN XL) 150 mg 24 hr tablet Indications: anxiety with depression Take 1 tablet (150 mg total) by mouth every morning Indications: anxiousness associated with depression. anxiety Active Wellbutrin Activ e cetirizine hydrochloride 10 mg oral tablet (16 sources) Histamine-1 Receptor Antagonist Start: 12-01-2023 take 1 tablet by mouth in the morning cetirizine (ZyrTEC) 10 mg tablet Indications: allergic rhinitis Take 1 tablet (10 mg total) by mouth in the morning. Indications: inflammation of the nose due to an allergy. 12/01/2023 Active cholecalciferol 0.05 mg oral tablet (12 sources) Vitamin D take 1 tablet by mouth once daily in the morning cholecalciferol, vitamin D3, 2,000 units tablet Indications: prevention of vitamin D deficiency Take 1 tablet (2,000 Units total) by mouth in the morning. Indications: prevention of vitamin D deficiency. Active methylPREDNISolone 4 mg oral tablet (1 source) Corticosteroid Start: 06-08-2022 methylPREDNISolone 4 MG as directed Orally Jun, Active oxyCODONE hydrochloride 5 mg oral tablet (1 source) Opioid Agonist Start: 01-24-2024 End: 01-31-2024 take 1 tablet by mouth every six hours as needed for pain oxyCODONE (ROXICODONE) 5 mg immediate release tablet Indications: Ductal carcinoma in situ (DCIS) of right breast Take 1 tablet (5 mg total) by mouth every 6 (six) hours as needed (Pain score 28 tablet 01/24/2024 01/31/2024 Active zinc gluconate 50 mg oral tablet (12 sources) take 1 tablet by mouth in the morning zinc gluconate 50 mg tablet Indications: zinc deficiency Take 1 tablet (50 mg total) by mouth in the morning. Indications: deficiency of zinc. Active Completed/Discontinued Medications Medication Drug Class(es) Dates Sig (Normalized) Sig (Original) acetaminophen 325 mg oral tablet (10 sources) Start: 01-24-2024 End: 08-06-2024 take 2 tablets by mouth every six hours acetaminophen (TYLENOL) 325 mg tablet Take 2 tablets (650 mg total) by mouth every 6 (six) hours. 30 tablet 01/24/2024 08/06/2024 Discontinued (Therapy completed) amoxicillin 500 mg oral capsule (4 sources) Penicillin-class Antibacterial Start: 08-20-2023 End: 05-14-2024 take 1 capsule by mouth twice daily Amoxicillin 500 mg capsule Discontinued 500 MG PO Twice daily August 20, 2023 12:00am May 14, 2024 10:42am docusate sodium 100 mg oral capsule (7 sources) Start: 01-24-2024 End: 08-06-2024 take 2 capsules by mouth once daily as needed for constipation docusate sodium (COLACE) 100 mg capsule Take 2 capsules (200 mg total) by mouth daily as needed for constipation. 10 capsule 01/24/2024 08/06/2024 Discontinued (Therapy completed) ibuprofen 800 mg oral tablet (7 sources) Nonsteroidal Anti-inflammatory Drug Start: 01-24-2024 End: 08-06-2024 take 1 tablet by mouth every eight hours as needed for pain ibuprofen (MOTRIN) 800 mg tablet Take 1 tablet (800 mg total) by mouth every 8 (eight) hours as needed for pain. 30 tablet 01/24/2024 08/06/2024 Discontinued (Therapy completed) oseltamivir 75 mg oral capsule (2 sources) Neuraminidase Inhibitor Start: 05-14-2024 End: 07-07-2024 take 1 capsule by mouth twice daily Oseltamivir 75 mg capsule Discontinued 75 MG PO Twice daily 10 5 May 14, 2024 1:00am July 07, 2024 9:16am Problems Active Problems Problem Classification Problem Date Documented Date Episodic/Chronic Acute bronchitis (1 source) Acute bronchitis, unspecified Episodic Anxiety disorders (14 sources) Anxiety; Translations: [Anxiety disorder, unspecified] 11-20-2023 Chronic Asthma (1 source) Asthma 11-20-2023 Chronic Cancer of breast (20 sources) Intraductal carcinoma in situ of right breast; Translations: [Intraductal carcinoma in situ of right breast] Onset: 12-01-2023 Chronic Immunizations and screening for infectious disease (1 source) Encounter for screening for human papillomavirus (HPV); Translations: [ENC SCREENING HUMAN PAPILLOMAVIRUS] Onset: 08-06-2022 Episodic Influenza (2 sources) Influenza due to Influenza A virus; Translations: [Influenza due to other identified influenza virus with other respiratory manifestations] 05-14-2024 Episodic Mood disorders (1 source) Depressive disorder 11-20-2023 Chronic Other aftercare (4 sources) Postoperative visit; Translations: [Encounter for other specified surgical aftercare] 01-30-2024 Episodic Other screening for suspected conditions (not mental disorders or infectious disease) (4 sources) Encounter for screening for malignant neoplasm of cervix; Translations: [ENC SCREENING MALIG NEOPLASM CERV] Onset: 08-02-2022 Episodic Other upper respiratory disease (14 sources) Seasonal allergic rhinitis; Translations: [Other seasonal allergic rhinitis] Onset: 01-18-2024 11-20-2023 Chronic Other upper respiratory infections (2 sources) Acute pharyngitis, unspecified; Translations: [Acute upper respiratory infection, unspecified] Episodic Residual codes; unclassified (1 source) Family history of malignant neoplasm of trachea, bronchus and lung; Translations: [FAM HX MALIG NEOPLSM TRACH BRON LNG] Onset: 06-20-2022 Episodic Residual codes; unclassified (1 source) Insomnia 11-20-2023 Episodic Residual codes; unclassified (3 sources) Bilateral acquired absence of breast; Translations: [Acquired absence of bilateral breasts and nipples] 01-30-2024 Episodic Residual codes; unclassified (4 sources) History of breast reconstruction; Translations: [Other specified postprocedural states] 01-30-2024 Episodic Unclassified (1 source) Breast finding 12-01-2023 Unclassified (2 sources) Autogenerated Problem Onset: 08-23-2024 08-23-2024 Unclassified (1 source) PRE-OP VISIT Onset: 08-06-2024 Unclassified (1 source) Post-op Onset: 03-07-2024 Unclassified (1 source) Consult Onset: 12-25-2023 Unclassified (1 source) BREAST DUCTAL IN SITU RIGHT, CONTRALATERAL RISK REDUCTION BREAST LEFT Onset: 01-23-2024 Past or Other Problems Problem Classification Problem Date Documented Date Episodic/Chronic Biliary tract disease (15 sources) Biliary calculus; Translations: [Chronic cholecystitis] Onset: 01-18-2024 Resolved: 01-18-2024 01-07-2019 Episodic Cancer of breast (11 sources) History of malignant neoplasm of breast; Translations: [Personal history of malignant neoplasm of breast] Onset: 06-13-2024 06-13-2024 Episodic Mood disorders (2 sources) Mood disorders Onset: 10-03-2024 10-03-2024 Nonmalignant breast conditions (18 sources) Diffuse cystic mastopathy of unspecified breast; Translations: [Fibrocystic disease of breast] Onset: 06-20-2022 Resolved: 01-18-2024 Chronic Nonmalignant breast conditions (19 sources) Solitary cyst of right breast; Translations: [Unspecified lump in the left breast, upper outer quadrant] Onset: 06-15-2022 Episodic Other aftercare (1 source) Encounter for other specified surgical aftercare; Translations: [Encounter for other specified surgical aftercare] Onset: 01-30-2024 Episodic Residual codes; unclassified (1 source) Acquired absence of bilateral breasts and nipples; Translations: [Acquired absence of bilateral breasts and nipples] Onset: 01-30-2024 Episodic Residual codes; unclassified (1 source) Other specified postprocedural states; Translations: [Other specified postprocedural states] Onset: 01-30-2024 Episodic Unclassified (1 source) Cough R05.9 Results Test Name Value Interpretation Reference Range Facility No Panel InformationOrdered By: Johanna Sweeney on 07-07-2024 Quick Strep (POC) [facility] Influenza virus B Ag [Presen ce] in Upper respiratory specimen by Rapid immunoassayon 05-14-2024 FLUBV Ag IA.rapid Ql (Nph) Influenza virus B Ag [Presence] in Upper respiratory specimen by Rapid immunoassay [facility] No Panel Informationon 05-14 Influenza Type A (Rapid) Positive [facility] POC SARS CoV-2 Antigen Negative [facility] BASIC METABOLIC PANLon 01-23 Anion gap [Moles/Vol] 2 mmol/L Low 5-15 [facility] Comment on above: Performed By: #### B MARIA ISABEL, CBCA #### [facility] ([id number]) [address] [place] [address] #### 6793-4 #### [facility] ([id number]) [address], [address] [place] [address] Calcium [Mass/Vol] 8.6 mg/dL Normal 8.5-10.5 [facility] Comment on above: Performed By: #### Marcos NICOLAS, CBCA #### [facility] ([id number]) [address] [place] [address] 16[address] #### 6793-4 #### [facility] ([id number]) [address], [address] [place] [address] Chloride [Moles/Vol] 108 mmol/L Normal 98-109 [facility] Comment on above: Performed By: #### Marcos NICOLAS, CBCA #### [facility] ([id number]) [address] [place] [address]79[address] #### 6793-4 #### [facility] ([id number]) [address], [address] [place] [address] CO2 [Moles/Vol] 27 mmol/L Normal 22-32 [facility] Comment on above: Performed By: #### B MP, CBCA #### [facility] ([id number]) [address] [place] [address] #### 6793-4 #### [facility] ([id number]) [address] [address] Creatinine [Mass/Vol] 0.75 mg/dL Normal 0.40-1.00 [facility] Comment on above: Result Comment: METH OD TRACEABLE TO IDMS STANDARD Performed By: #### Marcos NICOLAS CBCA #### [facility] ([id number]) [address] [place] [address] #### 6793-4 #### [facility] ([id number]) [address] [place] [address] eGFR (CKD-EPI) NON-RACE DEPENDENT >90 Normal >59 [facility] Comment on above: Result Comment: Reported eGFR is based on the CKD-EPI 2020 equation that does not use a race coefficient. Performed By: #### Marcos NICOLAS CBCA #### [facility] ([id number]) [address] [place] [address]25 #### 6793-4 #### [facility] ([id number]) [address] [place] [address] Glucose [Mass/Vol] 90 mg/dL Normal 65-99 [facility] Comment on above: Performed By: #### Marcos NICOLAS CBCA #### [facility] ([id number]) [address] [place] [address] 09447 #### 6793-4 #### [facility] ([id number]) [facility] [address] [address] Potassium [Moles/Vol] 4.2 mmol/L Normal 3.5-5.0 [facility] Comment on above: Performed By: #### Marcos NICOLAS CBCA #### [facility] ([id number]) [address] [place] [address] 95899 #### 6793-4 #### [facility] ([id number]) [address] [place] [address] Sodium [Moles/Vol] 137 mmol/L Normal 134-146 [facility] Comment on above: Performed By: #### B MARIA ISABEL, CBCA #### [facility] ([id number]) [address] [place] [address] 70[address] #### 6793-4 #### [facility] ([id number]) [address], [address] [place] [address] Urea nitrogen [Mass/Vol] 13 mg/dL Normal 5-23 [facility] Comment on above: Performed By: #### B MARIA ISABEL, CBCA #### [facility] ([id number]) [address] [place] [address] #### 6793-4 #### [facility] ([id number]) [address], [address] [place] [address] CBC AND AUTO DIFFon 01-24-20 24 ABSOLUTE BASOPHIL 0.1 X10E9/L Normal 0.0-0.2 [facility] Comment on above: Performed By: #### B MARIA ISABEL, CBCA #### [facility] ([id number]) [address] [place] [address] #### 6793-4 #### [facility] ([id number]) [address] [address] [place] [address] ABSOLUTE NEUTROPHIL 10.9 X10E9/L High 1.5-6.6 [facility] Comment on above: Performed By: #### B MP, CBCA #### [facility] ([id number]) [address] [place] [address] #### 6793-4 #### [facility] ([id number]) [address], [address] [place] [address] Basophils/100 WBC (Bld) 0.4 % Normal [facility] Comment on above: Performed By: #### B MP, CBCA #### [facility] ([id number]) [address] [place] [address] #### 6793-4 #### [facility] ([id number]) [address] [facility], [address] [place] [address] Eosinophils (Bld) [#/Vol] 0.1 10*3/uL Normal 0.0-0.4 [facility] Comment on above: Performed By: #### B MP, CBCA #### [facility] ([id number]) [address] [place] [address] #### 6793-4 #### [facility] ([id number]) [address] [facility], [address] [place] [address] Eosinophils/100 WBC (Bld) 0.4 % Normal [facility] Comment on above: Performed By: #### B MARIA ISABEL, CBCA #### [facility] ([id number]) [address] [place] [address] #### 6793-4 #### [facility] ([id number]) [address] [place] [address], [address] [place] [address] Erythrocyte distribution width (RBC) [Ratio] 12.8 % Normal 11.5-15.0 [facility] Comment on above: Performed By: #### B MARIA ISABEL, CBCA #### [facility] ([id number]) [address] [place] [address] 97361 #### 6793-4 #### [facility] ([id number]) [address] [facility] [address] [place] [address] Hematocrit (Bld) [Volume fraction] 33.7 % Low 35-47 [facility] Comment on above: Performed By: #### B MP, CBCA #### [facility] ([id number]) [address] [place] [address] #### 6793-4 #### [facility] ([id number]) [address], [address] [place] [address] Hemoglobin (Bld) [Mass/Vol] 11.2 g/dL Low 11.7-15.5 [facility] Comment on above: Performed By: #### Marcos MP, CBCA #### [facility] ([id number]) [address] [place] [address] 93867 #### 6793-4 #### [facility] ([id number]) [address], [address] [place] [address] Lymphocytes (Bld) [#/Vol] 1.9 10*3/uL Normal 1.0-3.5 [facility] Comment on above: Performed By: #### Marcos NICOLAS, CBCA #### [facility] ([id number]) [address] [place] [address] 299[address] #### 6793-4 #### [facility] ([id number]) [address], [address] [place] [address] Lymphocytes/100 WBC (Bld) 14.2 % Normal [facility] Comment on above: Performed By: #### B MARIA ISABEL, CBCA #### [facility] ([id number]) [address] [place] [address] 26711 #### 6793-4 #### [facility] ([id number]) [address], [address] [place] [address] MCH (RBC) [Entitic mass] 28.9 pg Normal 27-34 [facility] Comment on above: Performed By: #### B MARIA ISABEL, CBCA #### [facility] ([id number]) [address] [place] [address] 62396 #### 6793-4 #### [facility] ([id number]) [address], [address] [place] [address] MCHC (RBC) [Mass/Vol] 33.1 g/dL Normal 32-36 [facility] Comment on above: Performed By: #### B MP, CBCA #### [facility] ([id number]) [address] [place] [address] 97987 #### 6793-4 #### [facility] ([id number]) [address], [address] [place] [address] MCV (RBC) [Entitic vol] 87 fL Normal 80-100 [facility] Comment on above: Performed By: #### B MP, CBCA #### [facility] ([id number]) [address] [place] [address] 56204 #### 6793-4 #### [facility] ([id number]) [address], [address] [place] [address] Monocytes (Bld) [#/Vol] 0.8 10*3/uL Normal 0-0.9 [facility] Comment on above: Performed By: #### B MP, CBCA #### [facility] ([id number]) [address] [place] [address] 19329 #### 6793-4 #### [facility] ([id number]) [address], [address] [place] [address] Monocytes/100 WBC (Bld) 6.0 % Normal [facility] Comment on above: Performed By: #### B MP, CBCA #### [facility] ([id number]) [address] [place] [address] 15148 #### 6793-4 #### [facility] ([id number]) [address], [address] [place] [address] Neutrophils/100 WBC (Bld) 79.0 % Normal [facility] Comment on above: Performed By: #### B MP, CBCA #### [facility] ([id number]) [address] [place] [address] 76065 #### 6793-4 #### [facility] ([id number]) [address], [address] [place] [address] Platelet mean volume (Bld) [Entitic vol] 10.0 fL Normal 7-12 [facility] Comment on above: Performed By: #### Marcos NICOLAS, CBCA #### [facility] ([id number]) [address] [place] [address]791 #### 6793-4 #### [facility] ([id number]) [address], [address] [place] [address] Platelets (Bld) [#/Vol] 155 10*3/uL Normal 150-450 [facility] Comment on above: Performed By: #### Marcos NICOLAS, CBCA #### [facility] ([id number]) [address] [place] [address] #### 6793-4 #### [facility] ([id number]) [address] [address] [place] [address] RBC COUNT 3.86 X10E12/L Normal 3.80-5.20 [facility] Comment on above: Performed By: #### Marcos NICOLAS, CBCA #### [facility] ([id number]) [address] [place] [address] 92880 #### 6793-4 #### [facility] ([id number]) [address] [address] [place] [address] WBC (Bld) [#/Vol] 13.8 10*3/uL High 4.0-11.0 [facility] Comment on above: Performed By: #### Marcos NICOLAS CBCA #### [facility] ([id number]) [address] [place] [address] 23768 #### 6793-4 #### [facility] ([id number]) [address] [address] [place] [address] Prealbumin IA [Mass/Vol]on 0 9-25-2024 Prealbumin [Mass/Vol] 20 mg/dL Normal 18-45 [facility] Comment on above: Performed By: #### B MP, CBCA #### [facility] ([id number]) [address] [id number] #### 6793-4 #### [facility] ([id number]) [address] [place] [address], [address] [place] [address] Surgical Pathologyon [address] [facility] Comment on above: Result Comment: [facility] [address] [place] [address] Surgical Pathology Consultation Patient Name:SHARI HYDE:1980 (Age: 43)Gender:FTaken:4Reported:4Physician(s):Freda Johnson MD ([phone])Copy To:Den Carpio, [facility] #:[id number]. Rec. #:[id number]: #[id number] Final Pathologic Diagnosis 1. Left breast mastectomy: BENIGN: Breast tissue with diffuse fibrocystic changes 2. Right breast mastectomy: DUCTAL CARCINOMA IN SITU (DCIS), intermediate grade (3 mm in greatest dimension) (pTis) Margins are negative (closest is anterior, see true margin below) Previous biopsy site present and completely excised 3. Right breast mastectomy additional margin anterior: Negative for neoplasm (9 mm thickness) CANCER CASE SUMMARY ??? (DCIS of the Breast: Resection) Procedure: Mastectomy Specimen laterality: Right TUMOR: Histologic type: ductal Size (extent) of DCIS: estimated size (extent) at least 3 mm Nuclear grade: 2 Necrosis: Absent MARGINS: Negative REGIONAL LYMPH NODES: Not applicable (no regional lymph nodes submitted or found) DISTANT METASTASIS: N/A PATHOLOGIC STAGE CLASSIFICATION (pTNM, AJCC 8th Edition) TNM descriptors: N/A pT category: pTis Regional lymph nodes modifier: N/A pN category: pNx SPECIAL STUDIES: Breast biomarker testing please see below BREAST BIOMARKER REPORTING TEMPLATE - Ductal Carcinoma in Situ Estrogen Receptor (ER) Positive (percentage of cells with nuclear positivity: 99%); Average intensity of staining: Moderate-Strong Progesterone Receptor (PgR) Positive (percentage of cells with nuclear positivity: 90%); Average intensity of staining: Dim-Moderate Cold ischemia and fixation times meet the requirements specified in the latest version of the ASCO/CAP guidelines: Yes All external controls reacted appropriately. Comment Methods - Block: 2N Fixative: Formalin (Formalin-fixed, paraffin embedded tissue) Estrogen Receptor: Food and Drug Administration (FDA) cleared (test/vendor): Confirm/ [place], Primary Antibody: SP1 Progesterone Receptor: FDA cleared (test/vendor): Confirm/ [place], Primary Antibody: 1E2 Detection System (ER, PgR): [employer] ultraView [place] DAB Detection Kit (indirect biotin-free detection) Scoring Criteria Estrogen Receptor and Progesterone Receptor: Positive (ER only) - 10% or more tumor cells are immunoreactive Low positive (ER only) - 1-10% of tumor cells are immunoreactive Positive (PgR) - 1% or more tumor cells are immunoreactive Negative - less than 1% of tumor cells are immunoreactive References Rosey KH, Cristina GERARDO, Temi M, et al. Estrogen and Progesterone receptor Testing in Breast Cancer; [place] [employer] On[employer]/College of [place] Guideline Update. Arch Pathol Lab Med. doi:[email or web address].[email or web address]. Report Electronically Signed Out nsk/02/05/2024Earlene Clark MD Interpretation performed at [facility], [address] [place] [address], License number: [id number]. Clinical History Breast ductal in situ right, contralateral risk reduction breast left. 1.-2. Short superior, long lateral, double deep. 3. 12 o'clock clip munoz true margin. Gross Description 1. Received fresh and fixed in 10% formalin labeled MARY ELLEN, left breast mastectomy is a left breast, simple, skin sparing mastectomy specimen, oriented by the surgeon with a short suture at the superior margin, a long suture at the lateral margin, and a double suture at the deep margin. The left breast is 18 cm superior to inferior, 17 cm medial to lateral, and 4 cm anterior to posterior. The anterior surface of the specimen displays a vertical, mendez-lopez, wrinkled ellipse of skin, 3 x 2 cm. Eccentrically located on the skin is an inverted nipple, 1.4 x 1.3 x 0.2 cm. The specimen is inked as follows: Superior anterior-Yellow Inferior anterior-Blue Posterior-Black The specimen is serially sectioned progressing from lateral to medial through the posterior aspect to reveal cut surfaces comprised of approximately 80% adipose tissue and 20% breast tissue. Approximately 40% of the fibrous breast tissue is densely fibrocystic, and situated within the retroareolar aspect of the breast. The lateral aspect of the specimen is thinly sectioned and no palpable lymph nodes are identified. A radiograph is taken Fixation time: Time tissue removed from patient: 852 Time specimen sliced in formalin: 1154 Cold ischemic time: 3 hours and 1 minute Total fixation time on cut surface: 11 hours and 30 minutes Cassettes: A???B Inverted nipple C Posterior margin D???E Upper inner quadrant F???G Lower inner quadrant H???I Upper outer quadrant J???K Lower outer quadrant sternum (, ss, [id number], A???K, m1) JG 2. Received fresh and fixed in 10% formalin labeled julia HYDE (more content not included)... ABO Rh [place] 01-18-2024 ABO O [facility] Rh Nom (Bld) Negative [facility] CBC AND AUTO DIFFon 01-18-20 ABSOLUTE BASOPHIL 0.1 X10E9/L Normal 0.0-0.2 [facility] Comment on above: Performed By: #### C BCA #### [facility] ([id number]) [address] [address] [place] [address] ABSOLUTE NEUTROPHIL 4.7 X10E9/L Normal 1.5-6.6 [facility] Comment on above: Performed By: #### C BCA #### [facility] ([id number]) [address] [address] [place] [address] Basophils/100 WBC (Bld) 1.1 % Normal [facility] Comment on above: Performed By: #### C BCA #### [facility] ([id number]) [address] [place] [address] Eosinophils (Bld) [#/Vol] 0.2 10*3/uL Normal 0.0-0.4 [facility] Comment on above: Performed By: #### C BCA #### [facility] ([id number]) [address] [place] [address] Eosinophils/100 WBC (Bld) 3.2 % Normal [facility] Comment on above: Performed By: #### C BCA #### [facility] ([id number]) [address] [place] [address] Erythrocyte distribution width (RBC) [Ratio] 12.9 % Normal 11.5-15.0 [facility] Comment on above: Performed By: #### C BCA #### [facility] ([id number]) [address] [place] [address] Hematocrit (Bld) [Volume fraction] 42.7 % Normal 35-47 [facility] Comment on above: Performed By: #### C BCA #### [facility] ([id number]) [address] [place] [address] Hemoglobin (Bld) [Mass/Vol] 14.2 g/dL Normal 11.7-15.5 [facility] Comment on above: Performed By: #### C BCA #### [facility] ([id number]) [address] [place] [address] Lymphocytes (Bld) [#/Vol] 1.9 10*3/uL Normal 1.0-3.5 [facility] Comment on above: Performed By: #### C BCA #### [facility] ([id number]) [address] [place] [address] Lymphocytes/100 WBC (Bld) 25.7 % Normal [facility] Comment on above: Performed By: #### C BCA #### [facility] ([id number]) [address] [place] [address] MCH (RBC) [Entitic mass] 29.4 pg Normal 27-34 [facility] Comment on above: Performed By: #### C BCA #### [facility] ([id number]) [address] [place] [address] MCHC (RBC) [Mass/Vol] 33.3 g/dL Normal 32-36 [facility] Comment on above: Performed By: #### C BCA #### [facility] ([id number]) [address] [place] [address] MCV (RBC) [Entitic vol] 88 fL Normal 80-100 [facility] Comment on above: Performed By: #### C BCA #### [facility] ([id number]) [address] [place] [address] Monocytes (Bld) [#/Vol] 0.5 10*3/uL Normal 0-0.9 [facility] Comment on above: Performed By: #### C BCA #### [facility] ([id number]) [address] [place] [address] Monocytes/100 WBC (Bld) 7.1 % Normal [facility] Comment on above: Performed By: #### C BCA #### [facility] ([id number]) [address] [place] [address] Neutrophils/100 WBC (Bld) 62.9 % Normal [facility] Comment on above: Performed By: #### C BCA #### [facility] ([id number]) [address] [place] [address] Platelet mean volume (Bld) [Entitic vol] 11.3 fL Normal 7-12 [facility] Comment on above: Performed By: #### C BCA #### [facility] ([id number]) [address] [place] [address] Platelets (Bld) [#/Vol] 217 10*3/uL Normal 150-450 [facility] Comment on above: Performed By: #### C BCA #### [facility] ([id number]) [address] [place] [address] RBC COUNT 4.83 X10E12/L Normal 3.80-5.20 [facility] Comment on above: Performed By: #### C BCA #### [facility] ([id number]) [address] [address] WBC (Bld) [#/Vol] 7.5 10*3/uL Normal 4.0-11.0 [facility] Comment on above: Performed By: #### C BCA #### [facility] ([id number]) [address] [place] [address] CBC auto differentialon 12-30 Basophils (Bld) [#/Vol] 0.1 10*3/uL [facility] Basophils/100 WBC (Bld) 1.1 % [facility] Eosinophils (Bld) [#/Vol] 0.2 10*3/uL [facility] Eosinophils/100 WBC (Bld) 3.2 % [facility] Erythrocyte distribution width (RBC) [Ratio] 12.9 % 11.5 - 15.0 % [facility] Hematocrit (Bld) [Volume fraction] 42.7 % 35 - 47 % [facility] Hemoglobin (Bld) [Mass/Vol] 14.2 g/dL 11.7 - 15.5 g/dL [facility] Lymphocytes (Bld) [#/Vol] 1.9 10*3/uL [facility] Lymphocytes/100 WBC (Bld) 25.7 % [facility] MCH (RBC) [Entitic mass] 29.4 pg 27 - 34 pg [facility] MCHC (RBC) [Mass/Vol] 33.3 g/dL 32 - 36 g/dL [facility] MCV (RBC) [Entitic vol] 88 fL 80 - 100 fL [facility] Monocytes (Bld) [#/Vol] 0.5 10*3/uL [facility] Monocytes/100 WBC (Bld) 7.1 % [facility] Neutrophils (Bld) [#/Vol] 4.7 10*3/uL [facility] Neutrophils/100 WBC (Bld) 62.9 % [facility] Platelet mean volume (Bld) [Entitic vol] 11.3 fL 7 - 12 fL [facility] Platelets (Bld) [#/Vol] 217 10*3/uL [facility] RBC (Bld) [#/Vol] 4.83 10*6/uL [facility] WBC corrected for nucl RBC Auto (Bld) [#/Vol] 7.5 [facility] Type and screen(includes ind irect jatinder)on 01-18-2024 ABO O [facility] Rh Nom (Bld) Negative [facility] MR BREAST BILAT W WO CONT W CADon 01-04-2024 MR BREAST BILAT W WO CONT W CAD MR BREAST BILAT W WO CONT W CAD SHARI HYDE 1980 [id number] EXAM: MR BREAST BILAT W WO CONT W CAD, 01/04/2024 12:12 PM INDICATION: Newly diagnosed DCIS 12:00 right breast, COMPARISON: All imaging and biopsies were done at [facility]. Comparison is made to those multiple examinations dating back to 06/15/2022 TECHNIQUE: Breast images obtained utilizing a 1.5T MRI with dedicated breast coil. Three-dimensional, high resolution fat suppressed T1 weighted images were obtained prior to, immediately following, and after sequential delays relative to intravenous gadolinium contrast administration. Precontrast STIR and non-fat suppressed T1 axial images were also obtained. 3D image and subtraction processing were performed using [employer] software. The images were interpreted using image subtraction, reregistration, multiplanar reconstruction, 2D and 3D acquisition and subtracted MIP, RAFAELA, Time Activity curves and color mapping. CONTRAST VOLUME: 7 mL Gadavist FINDINGS: There is markedly intense background enhancement bilaterally, symmetric. The breast composition is extreme fibroglandular tissue. Multiple bilateral breast cysts. There are numerous small foci of enhancement present diffusely throughout both breasts. The multiplicity and similarity of these foci suggest a benign proliferative process/background breast tissue enhancement. No dominant suspicious focus is present. Biopsy marker clip is seen in the 12:00 position of the right breast, near the skin surface. In reviewing the postbiopsy mammogram it appears that following the biopsy, the clip did migrate 2 cm posterior to the site of biopsy with residual calcifications noted. It appears that the clip has migrated further superiorly since that postbiopsy mammogram. No definite specific abnormal enhancement is identified in the expected location of the DCIS who evaluation is limited due to the intense background enhancement. There are no suspicious enhancing lesions and no significant axillary or internal mammary lymphadenopathy. The skin, nipples and chest wall are unremarkable. IMPRESSION: 1. Biopsy marker clip in the 12:00 position of the right breast appears to have migrated superiorly on both post biopsy mammogram and even further following MRI. If lumpectomy is elected, the residual calcifications rather than the biopsy marker clip should be localized for excision. 2. No definite discrete abnormal enhancement is seen in the 12:00 right breast posteriorly in the expected location of the DCIS. 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 Normal [facility] 11-07-2023 L Specimen: [id number] Received: 11/08/23 Status: JAMES Quintana Num: [id number] Spec Type: Surgical Subm Dr: Sandrine Nava MD Tissues: A BREAST CORE NO CALCS (RT BREAST BX) Procedures: HE/4, Gross/Micro L4, CALPONIN/2, ER, LA Age/ Patient Sex Location Account Attending Physician Mary EllenShari Destinee 43/F [facility] [id number] Sandrine Nava MD SPEC NUM: [id number] RECD: 11/08/23 STATUS: JAMES QUINTANA NUM: [id number] YASMEEN: 11/07/23- SUBM DR: Sandrine Nava MD ENTERED: 11/08/[address] [facility] [address]: Eva Machado SPEC TYPE: Surgical DEPT: ANNA DE ANDA ORDERED: HE/4, Gross/Micro L4, CALPONIN/2, ER, LA ORDERED: HE/4, Gross/Micro L4, CALPONIN/2, ER, LA Pathological Diagnosis Right breast microcalcification at 12:00, stereotactic core biopsies: -Ductal carcinoma in situ (DCIS) -Tumor size is at least 0.7 cm -ER+, LA+ -Please also see synoptic report below Cancer summary: LATERALITY: RIGHT HISTOLOGICAL TYPE: DUCTAL CARCINOMA IN SITU (DCIS) TUMOR SIZE MEASURED ON SLIDE: AT LEAST 0.7 CM ARCHITECTURAL PATTERN: CRIBRIFORM, COMEDO, NEAR SOLID, PAPILLARY NUCLEAR GRADE: G2-3 NECROSIS: IDENTIFIED, COMEDO AND FOCAL CALCIFICATION: IDENTIFIED, WITHIN DCIS LOBULAR CARCINOMA IN SITU (LCIS): NOT IDENTIFIED TUMOR MARKERS ON (A2) -ER positive, 70-80% of tumor nuclei, 2+ -LA positive, 90-100% of tumor nuclei, 3+ ---- Specimen: [id number] Received: 11/08/23 Status: JAMES Quintana Num: [id number] Spec Type: Surgical Subm Dr: Sandrine Nava MD Tissues: A BREAST CORE NO CALCS (RT BREAST BX) Procedures: HE/4, Gross/Micro L4, CALPONIN/2, ER, LA ---- Patient: Shari Hyde [id number] (Continued) ---- Specimen: [id number] Received: 11/08/23 (Continued) Pathological Diagnosis (Continued) Signed (signature on file) Mckenna Holley MD 11/14/23 1247 ---- Specimen: [id number] Received: 11/08/23 Status: JAMES Quintana Num: [id number] Spec Type: Surgical Subm Dr: Sandrine Nava MD Tissues: A BREAST CORE NO CALCS (RT BREAST BX) Procedures: HE/4, Gross/Micro L4, CALPONIN/2, ER, LA ---- Patient: Shari Hyde [id number] (Continued) ---- Specimen: [id number] Received: 11/08/23 (Continued) Pathological Diagnosis (Continued) Note: [...] performed supporting the above interpretation CPT Codes [id number] ---- ---- Specimen: [id number] Received: 11/08/23 Status: JAMES Quintana Num: [id number] Spec Type: Surgical Subm Dr: Sandrine Nava MD Tissues: A BREAST CORE NO CALCS (RT BREAST BX) Procedures: HE/4, Gross/Micro L4, CALPONIN/2, ER, LA ---- Patient: Shari Hyde [id number] (Continued) ---- Signed (signature on file) Meek-Timothy Holley MD 11/14/23 1247 Normal [facility] Influenza virus A and B and SARS-CoV-2 (COVID-19) RNA panel - Respiratory system specon 08-20-2023 Influenza virus A and B RNA and SARS-CoV-2 (COVID-19) N gene panel RICHMOND+probe (Resp) Negative [facility] - Microbiology an d Antimicrobial susceptibilityon 08-20-2023 SARS-CoV-2 (COVID-19) RNA RICHMOND+probe Ql (Unsp spec) Negative [facility] No Panel Informationon 08-19 POC Influenza B (RICHMOND) Negative [facility] No Panel InformationOrdered By: Francisca Silvestre on 08-20-2023 Quick Strep (POC) [facility] PAP ACOG PANEL 2: 30 to 65on 08-09-2022 . . Normal [facility] Comment on above: Result Comment: Perf ormed at: WB Performed By: #### [id number] #### [facility] [address] [address] [address] Carol Holley Age Gdln ACOG Testing 30-65 Normal [facility] Comment on above: Performed By: #### [id number] #### [facility] [address] [address] [address] Carol Holley DIAGNOSIS: Comment Normal [facility] Comment on above: Result Comment: NEGA TIVE FOR INTRAEPITHELIAL LESION OR MALIGNANCY. Performed at: WB Performed By: #### [id number] #### [facility] [address] [address] [address] Carol Holley HPV Aptima Negative Normal Negative [facility] Comment on above: Result Comment: This nucleic acid amplification test detects fourteen high-risk HPV types (16,18,31,33,35,39,45,51,52,56,58,59,66,68) without differentiation. Performed at: =G Performed By: #### [id number] #### [facility] [address] [place] [address] Dr. Carol Holley HPV Genotype Reflex Comment Normal [facility] Comment on above: Result Comment: Crit eria not met, HPV Genotype not performed. Performed at: WB Performed By: #### 4 [id number] #### [facility] [address] [place] [address] Dr. Carol Holley Methodology: Comment Normal [facility] Comment on above: Result Comment: This liquid based ThinPrep(R) pap test was screened with the use of an image guided system. Performed at: WB Performed By: #### [id number] #### [facility] [address] [place] [address] Dr. Carol Holley Note: Comment Normal [facility] Comment on above: Result Comment: The Pap smear is a screening test designed to aid in the detection of premalignant and malignant conditions of the uterine cervix. It is not a diagnostic procedure and should not be used as the sole means of detecting cervical cancer. Both false-positive and false-negative reports do occur. . Performed at: WB Performed By: #### [id number] #### [facility] [address] [place] [address] Dr. Carol Holley Performed by: Comment Normal [facility] Comment on above: Result Comment: Juan C Le, [employer] (ASCP) Performed at: WB Performed By: #### 4 [id number] #### [facility] [address] [place] [address] Dr. Carol Holley Specimen adequacy: Comment Normal [facility] Comment on above: Result Comment: Sati sfactory for evaluation. Endocervical and/or squamous metaplastic cells (endocervical component) are present. Performed at: WB Performed By: #### 4 [id number] #### [facility] [address] [place] [address] Dr. Carol Holley MG MAMM DIAGNOSTIC 3D ULISSES CA Don 06-15-2022 MG MAMM DIAGNOSTIC 3D ULISSES CAD Patient: SHARI HYDE. Exam Date: 06/15/2022 : 1980 Gender:F Ordering : DR ROCKY PAPPAS . Admission #: [id number] Family : Order #: [id number] CLICK HERE TO VIEW EXAM RADIOLOGY REPORT [...] lung cancer at age 65. LOCATION: [facility] BREAST COMPOSITION: Extremely dense, which lowers the [...] PALPABLE LUMP SHOULD BE BIOPSIED. Dictated by: Ander Davis M.D. on 06/15/2022 at 14:36 Approved by: Ander Davis M.D. on 06/15/2022 at 14:40 Normal [facility] US BREAST LEFT LIMITEDon US BREAST LEFT LIMITED Patient: SHARI HYDE Exam Date: 06/15/2022 : 1980 Gender:F Ordering : DR ROCKY PAPPAS . Admission #: [id number] Family : Order #: [id number] CLICK HERE TO VIEW EXAM RADIOLOGY REPORT [...] lung cancer at age 65. LOCATION: [facility] BREAST COMPOSITION: Extremely dense, which lowers the [...] PALPABLE LUMP SHOULD BE BIOPSIED. Dictated by: Ander Davis M.D. on 06/15/2022 at 14:36 Approved by: Ander Davis M.D. on 06/15/2022 at 14:40 Normal [facility] Quick Strepon 06-08-2022 S. pyogenes Org specific cx Ql (Throat) Negative [employer] Other Quick Strep [employer] Other Vital Signs Date Time Vital Sign Value Performing Clinician Facility 10-03-2024 10:44-0400 Body height 177.8 cm Den Carpio MD Work Phone: [facility] 10-03-2024 10:44-0400 Body mass index (BMI) [Ratio] 23.1 kg/m2 Den Carpio MD Work Phone: [facility] 10-03-2024 10:44-0400 Body temperature 98.01 [degF] Den Carpio MD Work Phone: [facility] 10-03-2024 10:44-0400 Body weight 73.03 kg Den Carpio MD Work Phone: [facility] 10-03-2024 10:44-0400 Diastolic blood pressure 78 mm[Hg] Den Carpio MD Work Phone: [facility] 10-03-2024 10:44-0400 Heart rate 73 /min Den Carpio MD Work Phone: [facility] 10-03-2024 10:44-0400 Systolic blood pressure 114 mm[Hg] Den Carpio MD Work Phone: [facility] 08-30-2024 09:44-0400 Body mass index (BMI) [Ratio] 23.1 kg/m2 Vasiliy Rae [employer]ER [employer]ING [employer] Work Phone: [facility] 08-30-2024 09:44-0400 Body temperature 97.5 [degF] Vasiliy Rae [employer] HELPER[employer]SEMBLING F[employer]RICATOR Work Phone: [facility] 08-30-2024 09:44-0400 Body weight 73.03 kg Vasiliy Rae [employer] HELPER[employer]SEMBLING F[employer]RICATOR Work Phone: [facility] 08-30-2024 09:44-0400 Diastolic blood pressure 81 mm[Hg] Vasiliy Rae [employer]ENEER CL[employer]PER HELPER[employer]ASSEMBLING FABRICATOR Work Phone: [facility] 08-30-2024 09:44-0400 Heart rate 82 /min Vasiliy Rae [employer] HELPER[employer]SEMBLING F[employer]RICATOR Work Phone: [facility] [employer] [facility] 08-30-2024 09:44-0400 Systolic blood pressure 115 mm[Hg] Vasiliyomi Rae [employer] HELPER[employer]SEMBLING FABRICATOR Work Phone: [facility] [employer] [facility] 08-06-2024 13:30-0400 Body height 177.8 cm Vasiliyomi Rae [employer] HELPER[employer]SEMBLING F[employer]RICATOR Work Phone: [facility] [employer] [facility] 08-06-2024 13:30-0400 Body mass index (BMI) [Ratio] 23.24 kg/m2 Vasiliyomi Rae [employer] HELPER[employer]SEMBLING F[employer]RICATOR Work Phone: [facility] [employer] [facility] 08-06-2024 13:30-0400 Body temperature 97.7 [degF] Vasiliyomi Rae [employer] HELPER[employer]SEMBLING F[employer]RICATOR Work Phone: [facility] [employer] [facility] 08-06-2024 13:30-0400 Body weight 73.48 kg Vasiliyomi Rae [employer] HELPER[employer]SEMBLING F[employer]RICATOR Work Phone: [facility] [employer] [facility] 08-06-2024 13:30-0400 Diastolic blood pressure 82 mm[Hg] Vasiliyomi Rae [employer]PER HELPER[employer]ASSEMBLING FABRICATOR Work Phone: [facility] [employer] [facility] 08-06-2024 13:30-0400 Heart rate 74 /min Vasiliyomi Rae [employer] HELPER[employer]ASSEMBLING FABRICATOR Work Phone: [facility] [employer] [facility] 08-06-2024 13:30-0400 Systolic blood pressure 115 mm[Hg] Vasiliyomi Rae [employer] HELPER[employer]ASSEMBLING FABRICATOR Work Phone: [facility] [employer] [facility] 08-06-2024 10:27-0400 Body height 177.8 cm [facility] [employer] [facility] 08-06-2024 10:27-0400 Body mass index (BMI) [Ratio] 22.96 kg/m2 [facility] 08-06-2024 10:27-0400 Body weight 72.58 kg [facility] 07-07-2024 09:13-0400 Body height 177.8 cm [facility] 07-07-2024 09:13-0400 Body mass index (BMI) [Ratio] 23.6 kg/m2 [facility] 07-07-2024 09:13-0400 Body temperature 98.1 [degF] [facility] [facility] 07-07-2024 09:13-0400 Body weight 74.5 kg [facility] 07-07-2024 09:13-0400 Diastolic blood pressure 80 mm[Hg] [facility] 07-07-2024 09:13-0400 Heart rate 93 /min [facility] 07-07-2024 09:13-0400 Respiratory rate 16 /min [facility] 07-07-2024 09:13-0400 SaO2% (BldA) [Mass fraction] 96 % [facility] 07-07-2024 09:13-0400 Systolic blood pressure 117 mm[Hg] [facility] 06-13-2024 13:56-0500 Body temperature 97.7 [degF] Den Carpio MD Work Phone: [facility] 06-13-2024 13:56-0500 Diastolic blood pressure 77 mm[Hg] Den Carpio MD Work Phone: [facility] 06-13-2024 13:56-0500 Heart rate 96 /min Den Carpio MD Work Phone: [facility] 06-13-2024 13:56-0500 Systolic blood pressure 113 mm[Hg] Den Carpio MD Work Phone: [facility] 05-14-2024 09:52-0500 Body height 177.8 cm [facility] 05-14-2024 09:52-0500 Body mass index (BMI) [Ratio] 23.6 kg/m2 [facility] 05-14-2024 09:52-0500 Body temperature 97.2 [degF] [facility] 05-14-2024 09:52-0500 Body weight 74.84 kg [facility] 05-14-2024 09:52-0500 Diastolic blood pressure 85 mm[Hg] [facility] 05-14-2024 09:52-0500 Heart rate 93 /min [facility] 05-14-2024 09:52-0500 Respiratory rate 19 /min [facility] 05-14-2024 09:52-0500 SaO2% (BldA) [Mass fraction] 97 % [facility] 05-14-2024 09:52-0500 Systolic blood pressure 126 mm[Hg] [facility] 03-07-2024 08:04-0500 Body height 177.8 cm Debbie Mcculloughlan VENEER CLIPPER HELPER-ASSEMBLING FABRICATOR Work Phone: [facility] 03-07-2024 08:04-0500 Body mass index (BMI) [Ratio] 22.78 kg/m2 Debbie Paramjit VENEER CLIPPER HELPER-ASSEMBLING FABRICATOR Work Phone: [facility] 03-07-2024 08:04-0500 Body temperature 97.9 [degF] Debbie Paramjit VENEER CLIPPER HELPER-ASSEMBLING FABRICATOR Work Phone: [facility] 03-07-2024 08:04-0500 Body weight 72 kg Debbie Paramjit VENEER CLIPPER HELPER-ASSEMBLING FABRICATOR Work Phone: [facility] 03-07-2024 08:04-0500 Diastolic blood pressure 88 mm[Hg] Debbie Paramjit VENEER CLIPPER HELPER-ASSEMBLING FABRICATOR Work Phone: [facility] 03-07-2024 08:04-0500 Heart rate 75 /min Debbie Paramjit VENEER CLIPPER HELPER-ASSEMBLING FABRICATOR Work Phone: [facility] 03-07-2024 08:04-0500 Respiratory rate 16 /min Debbie Paramjit VENEER CLIPPER HELPER-ASSEMBLING FABRICATOR Work Phone: [facility] 03-07-2024 08:04-0500 Systolic blood pressure 126 mm[Hg] Debbie Paramjit VENEER CLIPPER HELPER-ASSEMBLING FABRICATOR Work Phone: [facility] 02-13-2024 08:28-0400 Diastolic blood pressure 93 mm[Hg] Vasiliy Rae VENEER CLIPPER HELPER-ASSEMBLING FABRICATOR Work Phone: [facility] 02-13-2024 08:28-0400 Heart rate 76 /min Vasiliy Rae VENEER CLIPPER HELPER-ASSEMBLING FABRICATOR Work Phone: [facility] 02-13-2024 08:28-0400 Respiratory rate 14 /min Vasiliy Rae VENEER CLIPPER HELPER-ASSEMBLING FABRICATOR Work Phone: [facility] 02-13-2024 08:28-0400 Systolic blood pressure 132 mm[Hg] Vasiliy Rae VENEER CLIPPER HELPER-ASSEMBLING FABRICATOR Work Phone: [facility] 01-30-2024 09:33-0400 Diastolic blood pressure 92 mm[Hg] Vasiliy Rae VENEER CLIPPER HELPER-ASSEMBLING FABRICATOR Work Phone: [facility] 01-30-2024 09:33-0400 Heart rate 91 /min Vasiliy Rae VENEER CLIPPER HELPER-ASSEMBLING FABRICATOR Work Phone: [facility] 01-30-2024 09:33-0400 Respiratory rate 16 /min Vasiliy Rae VENEER CLIPPER HELPER-ASSEMBLING FABRICATOR Work Phone: [facility] 01-30-2024 09:33-0400 Systolic blood pressure 129 mm[Hg] Vasiliy Rae VENEER CLIPPER HELPER-ASSEMBLING FABRICATOR Work Phone: [facility] 01-18-2024 11:02-0400 Body height 177.8 cm [facility] [address] [place] [address] 01-18-2024 11:02-0400 Body mass index (BMI) [Ratio] 21.95 kg/m2 [facility] [address] [place] [address] 01-18-2024 11:02-0400 Body temperature 97.39 [degF] [facility] 01-18-2024 11:02-0400 Body weight 69.4 kg [facility] 01-18-2024 11:02-0400 Diastolic blood pressure 80 mm[Hg] [facility] 01-18-2024 11:02-0400 Heart rate 97 /min [facility] [address] [place] [address] 01-18-2024 11:02-0400 SaO2% (BldA) [Mass fraction] 100 % [facility] 01-18-2024 11:02-0400 Systolic blood pressure 122 mm[Hg] [facility] 01-04-2024 09:15-0400 Body height 177.8 cm Den Carpio MD Work Phone: [facility] 01-04-2024 09:15-0400 Body mass index (BMI) [Ratio] 22.24 kg/m2 Den Carpio MD Work Phone: [facility] 01-04-2024 09:15-0400 Body weight 70.31 kg Den Carpio MD Work Phone: [facility] 01-04-2024 09:15-0400 Diastolic blood pressure 79 mm[Hg] Den Carpio MD Work Phone: [facility] 01-04-2024 09:15-0400 Heart rate 81 /min Den Carpio MD Work Phone: [facility] 01-04-2024 09:15-0400 Respiratory rate 14 /min Den Carpio MD Work Phone: [facility] 01-04-2024 09:15-0400 Systolic blood pressure 112 mm[Hg] Den Carpio MD Work Phone: [facility] 12-25-2023 11:51-0400 Body height 177.8 cm Freda Johnson MD Work Phone: [facility] 12-25-2023 11:51-0400 Body mass index (BMI) [Ratio] 22.24 kg/m2 Freda Johnson MD Work Phone: [facility] 12-25-2023 11:51-0400 Body weight 70.31 kg Freda Johsnon MD Work Phone: [facility] 12-25-2023 11:51-0400 Diastolic blood pressure 85 mm[Hg] Freda Johnson MD Work Phone: [facility] 12-25-2023 11:51-0400 Heart rate 106 /min Freda Johnson MD Work Phone: [facility] 12-25-2023 11:51-0400 Respiratory rate 18 /min Freda Johnson MD Work Phone: [facility] 12-25-2023 11:51-0400 Systolic blood pressure 129 mm[Hg] Freda Johnson MD Work Phone: [facility] 12-01-2023 09:24-0400 Blood Pressure Location Pasquale MOSELEY [facility] 12-01-2023 09:24-0400 Diastolic blood pressure 81 mm[Hg] Pasquale MOSELEY [facility] 12-01-2023 09:24-0400 Heart rate 74 /min Pasquale MOSELEY [facility] 12-01-2023 09:24-0400 Respiratory rate 16 /min Pasquale MOSELEY [facility] 12-01-2023 09:24-0400 Systolic blood pressure 120 mm[Hg] Pasquale MOSELEY [facility] 08-20-2023 09:54-0400 Body height 177.8 cm [facility] 08-20-2023 09:54-0400 Body mass index (BMI) [Ratio] 20.7 kg/m2 [facility] 08-20-2023 09:54-0400 Body temperature 97.3 [degF] [facility] 08-20-2023 09:54-0400 Body weight 65.77 kg [facility] 08-20-2023 09:54-0400 Heart rate 96 /min [facility] 08-20-2023 09:54-0400 Respiratory rate 18 /min [facility] 08-20-2023 09:54-0400 SaO2% (BldA) [Mass fraction] 98 % [facility] 06-08-2022 10:40-0500 Body height 177.8 cm Charlotte Allen Other [employer] Other 06-08-2022 10:40-0500 Body mass index (BMI) [Ratio] 23.1 kg/m2 Charlotte Allen Other [employer] Other 06-08-2022 10:40-0500 Body temperature 98.4 [degF] Charlotte Allen Other [employer] Other 06-08-2022 10:40-0500 Body weight 73.03 kg Charlotte Allen Other [employer] Other 06-08-2022 10:40-0500 Respiratory rate 18 /min Charlotte Allen Other [employer] Other 06-08-2022 10:40-0500 SaO2% (BldA) [Mass fraction] 97 % Charlotte Allen Other [employer] Other Encounters Encounter Date Encounter Type Care Provider Facility Start: 11-22-2024 End: 11-22-[address] [facility] Phone Call Provider 2 [facility] Start: 11-22-2024 End: 11-22-2024 Evaluation and management of inpatient SANDRINE NAVA [facility] Start: 10-03-2024 End: 10-03-2024 Postop follow up visit related to original px Den Carpio MD Work Phone: [facility] Comment on above: Breast asymmetry fol lowing reconstructive surgery (Primary Dx); History of right breast cancer Start: 10-03-2024 End: 10-03-2024 ambulatory DEN CARPIO [facility] Start: 08-30-2024 End: 08-30-2024 Postop follow up visit related to original px Vasiliy A Rae VENEER CLIPPER HELPER-ASSEMBLING FABRICATOR Work Phone: [facility] Comment on above: Encounter for postop erative care (Primary Dx); S/P breast reconstruction, bilateral; Acquired absence of breast, bilateral; History of right breast cancer Start: 08-30-2024 End: 08-30-2024 ambulatory [facility] Start: 08-23-2024 End: 08-23-2024 Evaluation and management of inpatient BURLINGTON Guillermo [facility] Start: 08-23-2024 End: 08-23-2024 Evaluation and management of inpatient DEN BOWLING [facility] Start: 08-06-2024 End: 08-06-2024 Patient encounter procedure Vasiliy Guillermo Timmy VENEER CLIPPER HELPER-ASSEMBLING FABRICATOR Work Phone: [facility] Comment on above: Pre-op evaluation (P rimary Dx); Breast asymmetry following reconstructive surgery Start: 08-06-2024 End: 08-06-2024 Preprocedural examination done [facility] VENEER CLIPPER HELPER-ASSEMBLING FABRICATOR Work Phone: [facility] Work Phone: Start: 08-06-2024 End: 08-06-2024 ambulatory [facility] Start: 08-06-2024 End: 08-06-[address] [facility] Phone Call Provider 3 [facility] Start: 08-06-2024 End: 08-06-2024 Evaluation and management of inpatient SANDRINE Macdonald Brennon [facility] Start: 08-05-2024 End: 08-05-2024 Telephone encounter Den Carpio MD Work Phone: [facility] Start: 07-07-2024 End: 07-07-2024 ambulatory [facility] Work Phone: Start: 07-07-2024 End: 07-07-2024 Patient encounter procedure [facility] Work Phone: Start: 06-13-2024 End: 06-13-2024 Office outpatient visit 25 minutes Den Carpio MD Work Phone: [facility] Comment on above: History of right harrison ast cancer (Primary Dx); Breast asymmetry following reconstructive surgery Start: 06-13-2024 End: 06-13-2024 [facility] Start: 05-14-2024 End: 05-14-2024 ambulatory [facility] Work Phone: Start: 05-14-2024 End: 05-14-2024 Patient encounter procedure [facility] Work Phone: Start: 03-07-2024 End: 03-07-2024 Postop follow up visit related to original px Debbie Yusuf VENEER CLIPPER HELPER-ASSEMBLING FABRICATOR [facility] Comment on above: Ductal carcinoma in situ (DCIS) of right breast (Primary Dx); Postoperative visit; Status post bilateral mastectomy S/P breast reconstru ction, bilateral (Primary Dx) Start: 03-07-2024 End: 03-07-2024 [facility] Start: 02-13-2024 End: 02-13-2024 Postop follow up visit related to original px Vasiliy Rae VENEER CLIPPER HELPER-ASSEMBLING FABRICATOR Work Phone: [facility] Comment on above: Encounter for postop erative care (Primary Dx); S/P breast reconstruction, bilateral; Acquired absence of breast, bilateral Start: 02-13-2024 End: 02-13-2024 [facility] Start: 01-30-2024 End: 01-30-2024 Postop follow up visit related to original px Vasiliy Rae VENEER CLIPPER HELPER-ASSEMBLING FABRICATOR Work Phone: [facility] Comment on above: Encounter for postop erative care (Primary Dx); Ductal carcinoma in situ (DCIS) of right breast; Acquired absence of breast, bilateral; S/P breast reconstruction, bilateral Start: 01-30-2024 End: 01-30-2024 ambulatory UMPQUA Guillermo [facility] Start: 01-24-2024 End: 01-24-2024 [facility] Start: 01-23-2024 End: 01-24-2024 [facility] Start: 01-18-2024 End: 01-18-2024 Patient encounter procedure [facility] [address] [facility] Comment on above: Pre-op testing (Prim tammie Dx) Start: 01-18-2024 End: 01-18-2024 Patient encounter status [facility] [address] [place] [address] Start: 01-18-2024 End: 01-18-2024 [facility] Start: 01-18-2024 Encounter for other preprocedural examination [facility] Start: 01-04-2024 End: 01-04-2024 [facility] Start: 01-04-2024 End: 01-04-2024 Office outpatient new 45 minutes Den Carpio MD Work Phone: [facility] Comment on above: Ductal carcinoma in situ (DCIS) of right breast Start: 01-04-2024 End: 01-04-2024 ambulatory DEN CARPIO [facility] Start: 12-25-2023 End: 12-25-2023 Office outpatient new 60 minutes Freda Johnson MD Work Phone: [facility] Comment on above: Ductal carcinoma in situ (DCIS) of right breast (Primary Dx) Start: 12-25-2023 End: 12-25-2023 Orders Only Freda Johnson MD Work Phone: [facility] Comment on above: Ductal carcinoma in situ (DCIS) of right breast (Primary Dx) Start: 12-01-2023 End: 12-01-2023 ambulatory Pasquale MOSELEY Facility:[facility] Start: 12-01-2023 End: 12-01-2023 Patient encounter procedure Pasquale MOSELEY [facility] Start: 11-07-2023 End: 11-07-2023 ambulatory Sandrine Nava [facility] Work Phone: Start: 11-07-2023 End: 11-07-2023 Departed Referred MD Sandrine Nava Work Phone: [facility] Start: 08-20-2023 End: 08-20-2023 ambulatory [facility] Work Phone: Start: 08-20-2023 End: 08-20-2023 [facility] Work Phone: Start: 08-02-2022 End: 08-02-[address] ROCKY PAPPAS . Facility: Start: 06-15-2022 End: 06-16-[address] ROCKY PAPPAS . Facility: Start: 06-08-2022 End: 06-08-2022 ambulatory Charlotte Allen Other [employer] Other Start: 06-08-2022 Office outpatient ne w 20 minutes Charlotte Allen [facility] Procedures Date Procedure Procedure Detail Performing Clinician Start: 10-03-2024 Adult depression screening assessment Den Carpio MD Work Phone: Start: 07-07-2024 Quick Strep (POC) Start: 06-13-2024 Follow-up visit Follow-up DEN CARPIO Start: 01-18-2024 Antibody screen [facility] Start: 01-18-2024 Blood typing serologic abo Yamilka maldonado MD Work Phone: Start: 01-18-2024 REPEATED ABORH Freda Johnson MD Work Phone: Start: 01-18-2024 Blood count complete auto&auto difrntl wbc Yamilka Lind MD Work Phone: Start: 11-07-2023 Stereotactically guided core needle biopsy of breast Pasquale LORELEI Start: 08-20-2023 Quick Strep (POC) Start: 05-01-2012 Mammography and biopsy of left breast Pasquale LORELEI Abdominal hysterectomy Anthony cathy SANCHEZDestinee Cholecystectomy Pasquale LORELEI History of bilateral mastectomy Status post bilateral mastectomy Debbie L Paramjit VENEER CLIPPER HELPER-ASSEMBLING FABRICATOR Work Phone: Transcervical sterilization Pasquale SANCHEZDestinee Plan of Treatment Date Care Activity Detail Author Start: 10-03-2025 Adult BMI Screening Adult [facility] Screening [facility] Start: 10-03-2025 Depression Screening [facility] Start: 10-03-2025 Tobacco Screening Tobacco Screening [facility] Start: 08-30-2025 Adult BMI Screening Adult BMI Screening [facility] Start: 08-23-2025 Adult BMI Screening Adult BMI Screening [facility] Start: 08-23-2025 Tobacco Screening Tobacco Screening [facility] Start: 06-13-2025 Tobacco Screening Tobacco Screening [facility] Start: 03-25-2025 End: 03-25-2025 Patient encounter procedure [facility] Start: 03-07-2025 Adult BMI Screening Adult BMI Screening [facility] Start: 03-07-2025 Tobacco Screening Tobacco Screening [facility] Start: 01-30-2025 Tobacco Screening Tobacco Screening [facility] Start: 01-23-2025 Adult BMI Screening Adult BMI Screening [facility] Start: 01-22-2025 Tobacco Screening Tobacco Screening [facility] Start: 01-17-2025 Adult BMI Screening Adult BMI Screening [facility] Start: 01-09-2025 End: 01-09-2025 Patient encounter procedure 01/09/2025 3:15 PM EDT Office Visit [facility] [address] [facility] [place] [address] Den Carpio MD [address] [facility] [address] [facility] Start: 12-30-2024 Influenza vaccination Influenza Vaccine [facility] Start: 12-24-2024 Adult BMI Screening Adult BMI Screening [facility] Start: 12-13-2024 End: 12-13-2024 Patient encounter procedure 12/13/2024 9:00 AM EDT Office Visit [facility] [address] [place] [address] Vasiliy Rae, VENEER CLIPPER HELPER-[facility] [address] [place] [address] [facility] Start: 12-06-2024 End: 12-06-2024 Admission to same day surgery center 12/06/2024 1:45 PM EDT - 12/06/2024 4:00 PM EDT Surgery [facility] Division [facility] - Surgery [address] [place] [address] Den Carpio MD [address] [place] [address] RECONSTRUCTION / REVISION BREAST [94132 (CPT )] [facility] Comment on above: RECONSTRUCTION / REVISION BREAST [77237 (CPT )] Start: 12-06-2024 End: 12-06-2024 LIPOSUCTION FAT GRAFTING LIPOSUCTION FAT GRAFTING HISTORY BREAST CANCER RIGHT, BREAST ASYMMETRY 12/06/2024 1:45 PM EDT [facility] Start: 12-06-2024 End: 12-06-2024 Revision reconstructed breast RECONSTRUCTION / REVISION BREAST HISTORY BREAST CANCER RIGHT, BREAST ASYMMETRY 12/06/2024 1:45 PM EDT [facility] Start: 12-06-2024 Subsequent hospital visit by physician 12/06/2024 1:45 PM EDT Hospital Encounter [facility] Surgery [address] [place] [address] Den Carpio MD [address] [facility] [place] [address] [facility] Start: 10-03-2024 End: 10-03-2024 Patient encounter procedure 10/03/2024 1:45 PM EDT Office Visit [facility] [address] [facility] [address] Den Carpio MD [address] [facility] [place] [address] [facility] Start: 08-30-2024 End: 08-30-2024 Patient encounter procedure 08/30/2024 10:00 AM EDT Office Visit [facility] [address] [facility] [place] [address] Vasiliy Rae, VENEER CLIPPER HELPER-ASSEMBLING FABRICATOR [address] [place] [address] [facility] Start: 08-23-2024 End: 08-23-2024 Admission to same day surgery center 08/23/2024 2:45 PM EDT - 08/23/2024 4:30 PM EDT Surgery [facility] Surgery [address] [facility] [place] [address] Den Carpio MD [address] [facility] [address] [place] [phone] LIPOSUCTION FAT GRAFTING FROM ABDOMEN TO BREAST BILATERAL [facility] Comment on above: LIPOSUCTION FAT GRAFTING FROM ABDOMEN TO BREAST BILATERAL Start: 08-23-2024 End: 08-23-2024 Injection intralesional up to & includ 7 lesions INJECTION SCAR MIDSECTION HISTORY BREAST CANCER RIGHT, BREAST ASYMMENTRY 08/23/2024 2:45 PM EDT [facility] Start: 08-23-2024 End: 08-23-2024 LIPOSUCTION FAT GRAFTING LIPOSUCTION FAT GRAFTING HISTORY BREAST CANCER RIGHT, BREAST ASYMMENTRY 08/23/2024 2:45 PM EDT [facility] Start: 08-23-2024 Subsequent hospital visit by physician 08/23/2024 2:45 PM EDT Hospital Encounter [facility] Surgery [address] [place] [address] Den Carpio MD [address], [facility] [address] [place] [phone] [facility] Start: 08-06-2024 End: 08-06-2024 Patient encounter procedure 08/06/2024 1:30 PM EDT Office Visit [facility] [address] [facility] [address] [place] [phone] Vasiliy Rae, VENEER CLIPPER HELPER-ASSEMBLING FABRICATOR [address], [address] [place] [address] [facility] Start: 08-06-2024 End: 08-06-2024 Admission to establishment 08/06/2024 11:00 AM EDT Support Visit [facility] On [address] [address] [facility] Start: 06-13-2024 End: 06-13-2024 Patient encounter procedure 06/13/2024 1:30 PM EST Office Visit [facility] [address] [place] [phone] Den Carpio MD [address], [address] [place] [address] [facility] Start: 03-07-2024 End: 03-07-2024 Patient encounter procedure [facility] Start: 03-05-2024 End: 03-05-2024 Patient encounter procedure 03/05/2024 11:00 AM EST Office Visit [facility] [address] [place] [address] Libby Mello PA [address] [place] [phone] [facility] Start: 02-13-2024 End: 02-13-2024 Patient encounter procedure 02/13/2024 8:30 AM EDT Office Visit [facility] [address] [place] [address] Vasiliy Rae, VENEER CLIPPER HELPER-ASSEMBLING FABRICATOR [address], [address] [place] [address] [facility] Start: 01-30-2024 End: 01-30-2024 Patient encounter procedure 01/30/2024 9:30 AM EDT Office Visit [facility] [address] [facility] [address] [place] [address] aVsiliy Rae, VENEER CLIPPER HELPER-ASSEMBLING FABRICATOR [address] [facility] [facility] [address] [place] [address] [facility] Start: 01-23-2024 End: 01-23-2024 Adjnt tis trnsfr/reargmt any area 30.1-60 sq cm SKIN PLASTY TISSUE REARRANGEMENT BREAST DUCTAL IN SITU RIGHT, CONTRALATERAL RISK REDUCTION BREAST LEFT 01/23/2024 7:30 AM EDT [facility] Start: 01-23-2024 End: 01-23-2024 Admission to same day surgery center 01/23/2024 7:30 AM EDT - 01/23/2024 12:00 PM EDT Surgery [facility] Division of [facility] - Surgery [address] [place] [phone] Freda Johnson MD [address] [facility] [address] [place] [id number] MASTECTOMY BREAST SIMPLE SKIN SPARING POSSIBLE NIPPLE SPAR RIGHT/ MAG TRACE INJECTION/ SKIN SPARING POSSIBLE NIPPLE SPARING MASTECTOMY LEFT [facility] of [facility] Surgery Comment on above: MASTECTOMY BREAST SIMPLE SKIN SPARING PO SSIBLE NIPPLE SPAR RIGHT/ MAG TRACE INJECTION/ SKIN SPARING POSSIBLE NIPPLE SPARING MASTECTOMY LEFT Start: 01-23-2024 End: 01-23-2024 MASTECTOMY BREAST SIMPLE MASTECTOMY BREAST SIMPLE BREAST DUCTAL IN SITU RIGHT, CONTRALATERAL RISK REDUCTION BREAST LEFT 01/23/2024 7:30 AM EDT [facility] Start: 01-23-2024 End: 01-23-2024 RECONSTRUCTION BREAST INSERTION PROSTHETIC DEVICE RECONSTRUCTION BREAST INSERTION PROSTHETIC DEVICE BREAST DUCTAL IN SITU RIGHT, CONTRALATERAL RISK REDUCTION BREAST LEFT 01/23/2024 7:30 AM EDT [facility] Start: 01-23-2024 Subsequent hospital visit by physician 01/23/2024 7:30 AM EDT Hospital Encounter [facility] - Surgery [address] [place] [address] Freda Johnson MD [address] [facility] [address] [place] [phone] [facility] - Surgery Start: 01-04-2024 Subsequent hospital visit by physician 01/04/2024 12:45 PM EDT [facility] [address] [place] [id number] [facility] - MRI Start: 01-04-2024 End: 01-04-2024 Patient encounter procedure 01/04/2024 9:15 AM EDT [facility] [address] [facility] [address] [place] [phone] Den Carpio MD [address] [facility] [address] [place] [address] [facility] Start: 12-31-2023 COVID-19 Vaccine ( season) COVID-19 Vaccine ( season) [facility] Start: 12-31-2023 COVID-19 Vaccine ( season) COVID-19 Vaccine ( season) [facility] Start: 12-31-2023 Influenza vaccination [facility] Start: 12-30-2022 COVID-19 Vaccine ( season) COVID-19 Vaccine ( season) [facility] Start: 2001 Screening for malignant neoplasm of cervix Pap Smear [facility] Start: 1999 DTaP,Tdap and Td Vaccines (1 - Tdap) DTaP,Tdap and Td Vaccines (1 - Tdap) [facility] Start: 1992 Depression Screening [facility] Start: 1992 Tobacco Screening Tobacco Screening [facility] Immunizations Immunization Date Immunization Notes Care Provider Fa cility 02-02-2023 influenza virus vaccine, unspecified formulation Pasquale NILL [facility] 03-23-2021 SARS-CoV-2 (COVID-19 ) mRNA-1273 vaccine Pasquale NILL [facility] 07-24-2020 SARS-CoV-2 (COVID-19 ) mRNA-1273 vaccine Pasquale NILL [facility] Comment on above: Result Comment: 2023: [id number] 06-24-2020 SARS-CoV-2 (COVID-19 ) mRNA-1273 vaccine Pasquale NILL [facility] Comment on above: Result Comment: 2023: [id number] Payers Date Payer Category Payer Self-pay [id number] b 2021 Managed Care Other (unspecified) [id number] 2021 Unknown [id number] 1.315 2019 Unknown [id number] 2.16 .840.1.370495.19 1980 Unknown [id number] 2.16.840.1.804052.3.579.2.593 1980 Unknown [id number] 2.16.840.1.846190.3.579.2.593 1980 Unknown [id number] 2.16.840.1.703830.3.579.2.727 1980 Unknown [id number] 2.16.840.1.700959.3.579.2.1285 1980 Unknown [id number] 2.840.1.096274.3.579.2.1285 1980 Unknown [id number] 2.840.1.844181.3.579.2.1285 1980 Unknown [id number] 2.840.1.125896.3.579.2.1285 1980 Unknown [id number] 2.840.1.110658.3.579.2.1285 1980 Unknown [id number] .1.789034.3.579.2.1285 1980 Unknown [id number] 2.840.1.788607.3.579.2.1285 1980 Unknown [id number] 840.1.866909.3.579.2.1285 1980 Unknown [id number] 840.1.866985.3.579.2.1285 1980 Unknown [id number] 06.16.830.1.604418.3.579.2.1285 1980 Unknown [id number] 2.840.1.269803.3.579.2.1285 1980 Unknown [id number] 840.1.815928.3.579.2.1285 1980 Unknown [id number] 2.840.1.591022.3.579.2.1285 1980 Unknown [id number] 2840.1.553239.3.579.2.1285 1980 Unknown [id number] 840.1.475919.3.579.2.1286 1980 Unknown [id number] 2.16.840.1.555236.3.579.2.1286 1980 Unknown [id number] 2.16.840.1.240748.3.579.2.1286 1980 Unknown [id number] 2.16.840.1.650224.3.579.2.6 1980 Unknown [id number] 2.16.840.1.149614.3.579.2.6 1980 Unknown [id number] 2.16.840.1.608278.3.579.2.1286 1959 Unknown [id number] Unknown [id number] 2.16.840.1.623962.3.579.2.531 Social History Date Type Detail Facility Start: 10-10-2018 End: 10-03-2024 Sex Assigned At [facility] Start: 08-20-2023 End: 01-18-2024 Tobacco smoking status MOIS Never smoked tobacco (finding) [facility] Start: 1980 Sex Assigned At Female F [facility] Tobacco smoking status Never [facility] Start: 12-04-2014 End: 05-14-2024 Sex Female (finding) [facility] Start: 12-25-2023 Tobacco smoking stat us MOIS Tobacco smoking consumption unknown [facility] Start: 10-10-2018 End: 10-03-2024 History of Social function [facility] Start: 1980 Sex assigned at Not on file P [facility] History of tobacco use Passive smoker [facility] Start: 01-18-2024 Tobacco use and exposure Smokeless tobacco non-user [facility] Start: 01-24-2024 End: 10-03-2024 Alcoholic beverage intake Current drinker of alcohol (finding) [facility] Has the electric, [address], or [employer] threatened to shut off services in your home in past 12Mo No [facility] Start: 01-31-2024 Gender identity Identifies as female gender (finding) [facility] Start: 10-03-2024 Sexual orientation Heterosexual (fin narayan) [facility] Start: 11-22-2024 Alcoholic beverage intake Ex-drinker (finding) [facility] Start: 11-22-2024 Alcohol Comment ocassional but not weekly [facility] Medical Equipment Procedure Code Equipment Code Equipment Origin al Text Equipment Identifier Dates [facility] [id number] - [id number] Start: 01-23-2024 [facility] [id number] - [id number] Start: 01-23-2024 Implant Brst 425 cc P4.2cm Mdrt Prj Rnd [facility] - [id number] - [id number] Start: 01-23-2024 Implant Brst 425 cc P4.2cm Mdrt Prj Rnd [facility] - [id number] - [id number] Start: 01-23-2024 Goals Date Patient Goal Desired Activity /State Personal health goal Comment on above: Formatting of this n ote might be different from the original. Evaluation of progress towards goal: Patient stated her goal is to return home with at discharge. Personal health goal Personal health goal Functional Status Date Assessment Result Facility 12-01-2023 Functional Status N/A [facility] Clinical Notes 06-08-2022 to 11-22-2024 Pre-Procedure Instructions - Ailyn Grace RN - 11/22/2024 2:45 PM EDTPre- Procedure Instructions - Ailyn Grace RN - 11/22/2024 2:45 PM EDTDen Carpio MD - 10/03/2024 1:45 PM EDT Note Date & Type Note Facility 11-22-2024 Instructions Formatting of th is note might be different from the original. Your surgery/procedure is scheduled at [facility] on 12/06/2024 at 145 pm Arrival Time 1145 am [facility] Address: [address] [place] [address], [address] Park in the Emergency Center Parking lot. Report to the front end specialist in the Emergency/Surgery Registration lobby of the hospital. Notify your SURGEON if you develop any illness such as a cold, cough, fever, sore throat, vomiting or are hospitalized between now and your surgery. Please call Pre-Admission Clinic at [phone] if you have any questions prior to surgery. For questions the morning of surgery, call the Pre-op Department at [phone]. Medication Instructions (Do not stop your medications without consulting the prescribing physician). Take the following medications the morning of surgery with a sip of water: wellbutrin Diabetic or Weight loss medications: HOLD n/a LAST DOSE n/a Take inhalers as prescribed the morning of surgery. Due to the risk associated with these medications. If these medications are not held per instruction below, your surgery is at an increased risk for cancellation SGLT2 Medications- Hold 3 days prior to surgery: Jardiance, Empagliflozin, Farxiga, Dapagliflozin, Invokana, Canagliflozin, Trijardy, Synjardy GLP-1 Medications (Injection or Pill)- If taken daily hold day of surgery. If taken weekly, hold 1 week prior to surgery: Adlyxin, Byetta, Bydureon, Ozempic, Rybelsus,Trulicity, Victoza, Wegovy, Lixisenatide, Exenatide, Semaglutide, Dulaglutide, Liraglutide GIP/GLP-1(Injection or Pill)- If taken daily hold day of surgery. If taken weekly, hold 1 week prior to surgery: Mounjaro . Blood thinners: Please contact your prescribing physician regarding a stop/hold date for these medications. Medications such as Coumadin, Heparin, Aspirin, Plavix, Eliquis, Pradaxa Diabetics: If you take insulin, contact your prescribing doctor for instructions on how to manage this the night before and the morning of surgery. Non-steriodal Anti-Inflammatory Drugs (NSAIDS)- Hold 7 days prior to surgery unless otherwise directed by your surgeon. Vitamins/Herbal Products: You may continue to take your prescribed vitamins such as potassium, iron, vitamin B, vitamin C, or multivitamin unless specifically instructed by your surgeon to hold. STOP taking all herbal products/teas one week prior to your surgery. Marijuana: Stop marijuana 72 hours prior to surgery, stop CBD oil 48 hours prior to surgery. If you have been given bowel prep instructions by your surgeon, please call the surgeon's office with any questions about these instructions. What do I do the day of Surgery? Age 2 through adult - Stop all solids by midnight, You may have clear liquids up to 2 hours before surgery, unless otherwise instructed by your surgeon Clear liquids are: water, sports drinks such as Gatorade or G2, or apple juice. You may NOT have: tube feedings, dairy products, alcoholic beverages, orange juice, or any liquids with solids or pulp in it If applicable, shower again with CHG soap the morning of your surgery. What do I need to do to prepare for surgery? If you will be going home the same day as your surgery, arrange for an adult over [address] Riding in a bus or taxi by yourself is not permitted. You should not smoke or drink alcohol 24 hours before your surgery. Alcohol thins the blood and may cause bleeding problems during surgery Smoking increases the risk of breathing problems after surgery. It also increases your risk for infection, and may delay healing. Do not use lotions, creams, powders, perfume, make up, cologne or after-shaves day of surgery. Remove ALL jewelry including wedding rings, body piercings, hair extensions that contain metal, nail greenlandic, make-up, and contact lens. You may brush your teeth the morning of surgery, but do not swallow the water. Wear your dentures and partial plates to the hospital (no adhesive). Shower the night the before. If applicable, use the CHG (chlorhexidine gluconate) soap or wipes. Please place clean linens on your bed after showering. Do not allow your pets in your bed. Please be advised, [facility] has transitioned to a cashless payment system. What should I bring to the hospital? Eyeglass or contact lens case If you will be spending the night, please bring personal care items and leave them in the car until you are taken to your room after surgery. Leave ALL valuables at home. If any of these instructions conflict with those you received from the surgeon, please seek clarification from your surgeon's office. DEEP BREATHING EXERCISES This exercise helps promote good air exchange and helps to prevent pneumonia after surgery. Breathe in slowly and deeply through the nose. Hold your breath for a few seconds and then exhale slowly through the mouth. Repeat this three times and then cough. Coughing helps to clear your lungs. If you have had a surgery with an incision into your abdomen or chest, press gently against your incision with a pillow or a folded blanket when you cough. Please be aware - it may not be anthony to cough following some types of surgeries involving the eyes, ears, sinuses and throat. Always follow your doctor's instructions. LEG EXERCISES These exercises help promote good circulation and help to prevent blood clots after surgery. Point your toes to the ceiling and then point them to the wall. Do this slowly about 15-20 times. You may also move your feet in circles. Do the exercise that is most comfortable for you. If you have had surgery involving your shoulder or arm, we recommend you move your fingers. PRACTICING We ask that you begin practicing these exercises before your surgery. After surgery try to do both exercises at least every 2 hours during the day and early evening. Surgical Site Infection Prevention What is a Surgical Site Infection (SSI)? Infection can happen to the area of the body where surgery is done. This is called a surgical site infection (SSI). A SSI does not happen very often. What are some of the things that hospitals are doing to prevent SSIs? Soap and water or alcohol hand rub are used before and after caring for each patient. Special soap is used to clean surgery workers hands and arms just before the surgery. Masks, gowns, gloves and hair covers are worn during the surgery to keep the area clean. Hair in the surgery area may be removed with clippers (not razors). A special soap that kills germs is used to clean the skin at the surgery site. Antibiotics may be given before the surgery starts. What can you do to prevent SSIs? Before surgery: You may be asked to shower or bathe with a special soap that kills germs the night before and the day of surgery. Use the soap as you were told. Place clean sheets on your bed the night before surgery and do not allow your pets in your bed. If you smoke or vape, stop or cut down. This creates a stress response in your body that increases inflammation, constricts blood vessels and deprives your tissues of oxygen. After surgery, this stress response disrupts the travel of oxygen, nutrients, and blood to your surgical site, interfering with the wound healing process. It also decreases the ability of your cells to fight infection. Ask your doctor about ways to quit. If you have high blood sugars or diabetes please talk with your doctor about having healthy blood sugar levels to promote healing. Do not shave near where you will have surgery. Shaving can irritate the skin and make it easier to get and infection. After surgery: Be sure that the doctors and nurses clean their hands before and after touching you. Be sure your family and friends clean their hands before and after visiting you. Do not be afraid to remind them. Always wash your hands before touching your incisional area. * Care for your wound at home as told by your doctor or nurse * Call your doctor right away if you have fever, redness, increased pain, or drainage at the surgery site. Can SSIs be treated? Antibiotics are used to treat SSI. Some patients may need another surgery to treat the infection. The doctor will discuss treatment options with you. Further questions? Contact the doctor, nurse or the Infection Prevention and Control department if you have any questions. PATIENT RIGHTS AND RESPONSIBILITIES As a patient at [facility], you have the right to: Receive medical care and be informed of who is taking care of you Be treated with dignity and respect Have a family member/herbicide service sales representative of choice and your physician notified of your admission Receive information and actively participate in decisions about your care and treatment Refuse care, treatment and services Decide who may provide your support and speak for you Access rastafari and spiritual services Participate in ethical issues and questions about your care Receive private and confidential care Have appropriate assessment and management of your pain Know guest visitation restrictions or limitations Have an advance directive Access protective services Consent or refuse to participate in research studies or production or recordings, films or other images Have resolution of your complaints Receive information of hospital charges and payment methods Patient/patient herbicide service sales representative responsibilities are to: Provide information about health status to facilitate care, treatment and services Follow the treatment, plan, keep appointments and speak up when you do not understand the plan Respect the rights of other patients and healthcare personnel Follow organizational rules and regulations that support quality care and a safe environment Fulfill financial obligations as promptly as possible [facility] 11-22-2024 Miscellaneous Notes Your surgery/procedure is scheduled at [facility] on 12/06/2024 at 145 pm Arrival Time 1145 am [facility] Address: [address] [place] [address], [facility] Park in the Emergency Center Parking lot. Report to the front end specialist in the Emergency/Surgery Registration lobby of the hospital. Notify your SURGEON if you develop any illness such as a cold, cough, fever, sore throat, vomiting or are hospitalized between now and your surgery. Please call Pre-Admission Clinic at [phone] if you have any questions prior to surgery. For questions the morning of surgery, call the Pre-op Department at [phone]. Medication Instructions (Do not stop your medications without consulting the prescribing physician). Take the following medications the morning of surgery with a sip of water: wellbutrin Diabetic or Weight loss medications: HOLD n/a LAST DOSE n/a Take inhalers as prescribed the morning of surgery. Due to the risk associated with these medications. If these medications are not held per instruction below, your surgery is at an increased risk for cancellation SGLT2 Medications- Hold 3 days prior to surgery: Jardiance, Empagliflozin, Farxiga, Dapagliflozin, Invokana, Canagliflozin, Trijardy, Synjardy GLP-1 Medications (Injection or Pill)- If taken daily hold day of surgery. If taken weekly, hold 1 week prior to surgery: Adlyxin, Byetta, Bydureon, Ozempic, Rybelsus,Trulicity, Victoza, Wegovy, Lixisenatide, Exenatide, Semaglutide, Dulaglutide, Liraglutide GIP/GLP-1(Injection or Pill)- If taken daily hold day of surgery. If taken weekly, hold 1 week prior to surgery: Mounjaro . Blood thinners: Please contact your prescribing physician regarding a stop/hold date for these medications. Medications such as Coumadin, Heparin, Aspirin, Plavix, Eliquis, Pradaxa Diabetics: If you take insulin, contact your prescribing doctor for instructions on how to manage this the night before and the morning of surgery. Non-steriodal Anti-Inflammatory Drugs (NSAIDS)- Hold 7 days prior to surgery unless otherwise directed by your surgeon. Vitamins/Herbal Products: You may continue to take your prescribed vitamins such as potassium, iron, vitamin B, vitamin C, or multivitamin unless specifically instructed by your surgeon to hold. STOP taking all herbal products/teas one week prior to your surgery. Marijuana: Stop marijuana 72 hours prior to surgery, stop CBD oil 48 hours prior to surgery. If you have been given bowel prep instructions by your surgeon, please call the surgeon's office with any questions about these instructions. What do I do the day of Surgery? Age 2 through adult - Stop all solids by midnight, You may have clear liquids up to 2 hours before surgery, unless otherwise instructed by your surgeon Clear liquids are: water, sports drinks such as Gatorade or G2, or apple juice. You may NOT have: tube feedings, dairy products, alcoholic beverages, orange juice, or any liquids with solids or pulp in it If applicable, shower again with CHG soap the morning of your surgery. What do I need to do to prepare for surgery? If you will be going home the same day as your surgery, arrange for an adult over [address] Riding in a bus or taxi by yourself is not permitted. You should not smoke or drink alcohol 24 hours before your surgery. Alcohol thins the blood and may cause bleeding problems during surgery Smoking increases the risk of breathing problems after surgery. It also increases your risk for infection, and may delay healing. Do not use lotions, creams, powders, perfume, make up, cologne or after-shaves day of surgery. Remove ALL jewelry including wedding rings, body piercings, hair extensions that contain metal, nail greenlandic, make-up, and contact lens. You may brush your teeth the morning of surgery, but do not swallow the water. Wear your dentures and partial plates to the hospital (no adhesive). Shower the night the before. If applicable, use the CHG (chlorhexidine gluconate) soap or wipes. Please place clean linens on your bed after showering. Do not allow your pets in your bed. Please be advised, [facility] has transitioned to a cashless payment system. What should I bring to the hospital? Eyeglass or contact lens case If you will be spending the night, please bring personal care items and leave them in the car until you are taken to your room after surgery. Leave ALL valuables at home. If any of these instructions conflict with those you received from the surgeon, please seek clarification from your surgeon's office. DEEP BREATHING EXERCISES This exercise helps promote good air exchange and helps to prevent pneumonia after surgery. Breathe in slowly and deeply through the nose. Hold your breath for a few seconds and then exhale slowly through the mouth. Repeat this three times and then cough. Coughing helps to clear your lungs. If you have had a surgery with an incision into your abdomen or chest, press gently against your incision with a pillow or a folded blanket when you cough. Please be aware - it may not be anthony to cough following some types of surgeries involving the eyes, ears, sinuses and throat. Always follow your doctor's instructions. LEG EXERCISES These exercises help promote good circulation and help to prevent blood clots after surgery. Point your toes to the ceiling and then point them to the wall. Do this slowly about 15-20 times. You may also move your feet in circles. Do the exercise that is most comfortable for you. If you have had surgery involving your shoulder or arm, we recommend you move your fingers. PRACTICING We ask that you begin practicing these exercises before your surgery. After surgery try to do both exercises at least every 2 hours during the day and early evening. Surgical Site Infection Prevention What is a Surgical Site Infection (SSI)? Infection can happen to the area of the body where surgery is done. This is called a surgical site infection (SSI). A SSI does not happen very often. What are some of the things that hospitals are doing to prevent SSIs? Soap and water or alcohol hand rub are used before and after caring for each patient. Special soap is used to clean surgery workers hands and arms just before the surgery. Masks, gowns, gloves and hair covers are worn during the surgery to keep the area clean. Hair in the surgery area may be removed with clippers (not razors). A special soap that kills germs is used to clean the skin at the surgery site. Antibiotics may be given before the surgery starts. What can you do to prevent SSIs? Before surgery: You may be asked to shower or bathe with a special soap that kills germs the night before and the day of surgery. Use the soap as you were told. Place clean sheets on your bed the night before surgery and do not allow your pets in your bed. If you smoke or vape, stop or cut down. This creates a stress response in your body that increases inflammation, constricts blood vessels and deprives your tissues of oxygen. After surgery, this stress response disrupts the travel of oxygen, nutrients, and blood to your surgical site, interfering with the wound healing process. It also decreases the ability of your cells to fight infection. Ask your doctor about ways to quit. If you have high blood sugars or diabetes please talk with your doctor about having healthy blood sugar levels to promote healing. Do not shave near where you will have surgery. Shaving can irritate the skin and make it easier to get and infection. After surgery: Be sure that the doctors and nurses clean their hands before and after touching you. Be sure your family and friends clean their hands before and after visiting you. Do not be afraid to remind them. Always wash your hands before touching your incisional area. * Care for your wound at home as told by your doctor or nurse * Call your doctor right away if you have fever, redness, increased pain, or drainage at the surgery site. Can SSIs be treated? Antibiotics are used to treat SSI. Some patients may need another surgery to treat the infection. The doctor will discuss treatment options with you. Further questions? Contact the doctor, nurse or the Infection Prevention and Control department if you have any questions. PATIENT RIGHTS AND RESPONSIBILITIES As a patient at [facility], you have the right to: Receive medical care and be informed of who is taking care of you Be treated with dignity and respect Have a family member/herbicide service sales representative of choice and your physician notified of your admission Receive information and actively participate in decisions about your care and treatment Refuse care, treatment and services Decide who may provide your support and speak for you Access rastafari and spiritual services Participate in ethical issues and questions about your care Receive private and confidential care Have appropriate assessment and management of your pain Know guest visitation restrictions or limitations Have an advance directive Access protective services Consent or refuse to participate in research studies or production or recordings, films or other images Have resolution of your complaints Receive information of hospital charges and payment methods Patient/patient herbicide service sales representative responsibilities are to: Provide information about health status to facilitate care, treatment and services Follow the treatment, plan, keep appointments and speak up when you do not understand the plan Respect the rights of other patients and healthcare personnel Follow organizational rules and regulations that support quality care and a safe environment Fulfill financial obligations as promptly as possible documented in this encounter [facility] [employer] [facility] 10-03-2024 History of Presen t illness Narrative [facility] Plastic & Reconstructive Surgery [address] Office Den Carpio MD, PhD Vasiliy Rae, VENEER CLIPPER HELPER-JENNI Parekh PA-C Plastic Surgery Progress Note Reason for visit : post-op History of present illness: Shari Hyde is a 44 y.o. female with a history of history of right breast cancer s/p bilateral skin sparing mastectomies (Dr. Johnson) with direct to implant reconstruction 01/23/24. She then underwent liposuction of abdomen with fat grafting to bilateral breast on 08/23/24. She is doing well however, she does notice some asymmetries however. The patient is doing well postoperatively. The patient denies fever, chills, redness or drainage from surgical wound(s). Review of Systems: Denies surgical site concerns. All other symptoms negative except as noted in HPI. Physical Examination: Vitals: 10/03/24 1044 BP: 114/78 Pulse: 73 Temp: 36.7 C (98 F) Body mass index is 23.1 kg/m . GENERAL: no acute distress, well developed, well nourished. LYMPHATIC: no upper extremity lymphedema NEUROLOGIC: alert and oriented to time, place and person. PSYCH: judgement and insight good, mood/affect full range. Focused examination : breast incisions are well healed. The vertical left breast incision is slightly wide. Nipple areolar complexes are surgically absent. Breast volume is near symmetric. Patient has a prominent rib palpable within the superior left breast. The edge of the implant is palpable within the left breast which creates a slightly boxy appearance medially. Patient has some hollowing appreciated within the superior medial left breast and to a lesser degree, right breast Impression: 1. Breast asymmetry following reconstructive surgery 2. History of right breast cancer Recommendations: We discussed options to improve symmetry. We recommend revision of bilateral breast reconstruction with revision of the left breast incision, liposuction fat grafting from her flanks to her breast. She is open and agreeable to the proposed treatment plan. She will reach out to our office however if any further questions or concerns in the interim. MIRACLE PAREKH PA-C I, DEN CARPIO MD, PHD personally performed the face to face evaluation on this patient on October 03, 2024. I discussed with the patient and confirmed the accuracy and completeness of the aforementioned history, and I personally performed the clinical examination of the patient. I have established and discussed the course of treatment with the patient. My medical decision making and treatment plan are as follows: Plan as above. Den Carpio MD, PhD [facility] Plastic & Reconstructive Surgery Total time spent was 15 minutes: Preparing to see the patient (e.g., review of tests) Obtaining and/or reviewing separately obtained history Performing a medically appropriate examination and/or evaluation Counseling and educating the patient/family/caregiver Ordering medications, tests, or procedures Documenting clinical information in the electronic or other health record Please note that portions of this note were generated using voice recognition [employer] dictation software. Although every effort was made to ensure the accuracy of this automated wireless manager, some errors in wireless manager may have occurred. documented in this encounter [facility] 08-30-2024 History of Presen t illness Narrative [facility] Plastic & Reconstructive Surgery [address] Office Den Carpio MD, PhD Vasiliy Rae, VENEER CLIPPER HELPER-ASSEMBLING FABRICATOR Miracle Parekh PA-C Plastic Surgery Progress Note Reason for visit : post-op History of present illness: Shari Hyde is a 44 y.o. female with a history of history of right breast cancer s/p bilateral skin sparing mastectomies (Dr. Johnson) with direct to implant reconstruction 01/23/24. She then underwent liposuction of abdomen with fat grafting to bilateral breast on 08/23/24. She presents to the office today for routine 1 week postoperative appointment. She states she is doing well. She reports good appetite. She is having normal bowel movements. She denies any surgical site concerns today. The patient denies fever, chills, redness or drainage from surgical wound(s). Review of Systems: Denies surgical site concerns. All other symptoms negative except as noted in HPI. Physical Examination: Vitals: 08/30/24 0944 BP: 115/81 Pulse: 82 Temp: 36.4 C (97.5 F) Body mass index is 23.1 kg/m . GENERAL: no acute distress, well developed, well nourished. LYMPHATIC: no upper extremity lymphedema NEUROLOGIC: alert and oriented to time, place and person. PSYCH: judgement and insight good, mood/affect full range. Focused examination : Bilateral breast liposuction sites are clean, dry and intact with surgical glue present. Breasts are soft. Mild bruising present to superior poles of breast. No erythema or necrosis present. No ballotable fluid collections palpated. Implants are soft. Nipple-areolar complexes are surgically absent. Abdominal liposuction port site incisions are clean, dry and intact with surgical glue present. Abdomen is soft, nontender palpation. No ballotable fluid collections palpated. No erythema present. No sign of infection. Impression: 1. Encounter for postoperative care 2. S/P breast reconstruction, bilateral 3. Acquired absence of breast, bilateral 4. History of right breast cancer Recommendations: Patient is doing well postoperatively. Discussed with patient that she should refrain from any heavy lifting, pushing or pulling until she is 4 weeks out from surgery. Okay to start performing cardio activity. Discussed continuing with supportive bra until she is 4 weeks postop. She does not need to wear the bra to bed any longer. Continue with compression to abdomen for another 1-2 weeks. Okay to gently massaged breast and abdomen at 4 weeks postop. Continue monitor for any sign of infection. Follow-up at [address] Carpio. She was advised to call the office any questions or concerns in the interim. - KEVIN Lorenzana 08/30/24 10:24 AM Please note that portions of this note were generated using voice recognition [employer] dictation software. Although every effort was made to ensure the accuracy of this automated wireless manager, some errors in wireless manager may have occurred. KEVIN Cisse 08/30/24 1024 documented in this encounter [facility] 08-06-2024 History of Presen t illness Narrative [facility] Plastic & Reconstructive Surgery [address] Office Den Carpio MD, PhD Vasiliy Rae, KASANDRA-ASSEMBLING FABRICATOR Miracle Parekh PA-C Plastic Surgery Preoperative Appointment Note Reason for visit : 1. Pre-op evaluation 2. Breast asymmetry following reconstructive surgery History of present illness: Shari Hyde 44 y.o. female is here today for a preoperative appointment. She has a history of right breast cancer s/p bilateral skin sparing mastectomies (Dr. Johnson) with direct to implant reconstruction . We have plans for liposuction of the abdomen with fat grafting to bilateral breast and possible steroid injections to bilateral breasts medial scars.. Date & Reason of Surgery:08/23/24liposuction of the abdomen with fat grafting to bilateral breast and possible steroid injections to bilateral breasts medial scars.. Past Medical History: Past Medical History: Diagnosis Date Anxiety Cancer of right breast ([facility]) 11/07/2023 DCIS Dental disease crown Fibrocystic breast changes 01/18/2024 Seasonal allergic rhinitis 01/18/2024 Symptomatic cholelithiasis 01/18/2024 had surgery 2018 Past Surgical History: Past Surgical History: Procedure Laterality Date BREAST BIOPSY Right 2023 CHOLECYSTECTOMY 2018 COLONOSCOPY 2008 ESSURE TUBAL LIGATION 2006 HYSTERECTOMY 2008 one ovary removed IMMEDIATE RECONSTRUCTION BREAST INSERTION PROSTHETIC DEVICE (SILICONE IMPLANTS) Bilateral 01/23/2024 Performed by Den Carpio MD at [facility] SKIN PLASTY TISSUE REARRANGEMENT DE-EPITHILIZED ALLODERM PLACEMENT Bilateral 01/23/2024 Performed by Den Carpio MD at [facility] SKIN SPARING MASTECTOMY Bilateral 01/23/2024 Performed by Freda Johnson MD at [facility] Allergies: No Known Allergies Immunization History: Immunization History Administered Date(s) Administered COVID-19, mRNA, LNP-S, PF, 100mcg/0.5mL Dose 06/24/2020, 07/24/2020, 03/23/2021 Social History: Social History Socioeconomic History Marital status: Spouse name: Not on file Number of children: Not on file Years of education: Not on file Highest education level: Not on file Occupational History Not on file Tobacco Use Smoking status: Never Passive exposure: Past Smokeless tobacco: Never Vaping Use Vaping status: Never Used Substance and Sexual Activity Alcohol use: Yes Alcohol/week: 4.0 standard drinks of alcohol Types: 4 Shots of liquor per week Drug use: Never Sexual activity: Defer Other Topics Concern Not on file Social History Narrative Not on file Social Drivers of Health Financial Resource Strain: Not on file Food Insecurity: No Food Insecurity (08/06/2024) Hunger Screening Food Insecurity - Worry: Never True Food Insecurity - Inability: Never True Transportation Needs: No Transportation Needs (01/23/2024) PRAPARE - Transportation Lack of Transportation (Medical): No Lack of Transportation (Non-Medical): No Physical Activity: Not on file Stress: Not on file Social Connections: Not on file Interpersonal Safety: Not At Risk (01/23/2024) Humiliation, Afraid, Rape, and Kick questionnaire Fear of Current or Ex-Partner: No Emotionally Abused: No Physically Abused: No Sexually Abused: No Housing Instability: Low Risk (01/23/2024) Housing Instability Housing Instability: No Family History: Family History Problem Relation Age of Onset Anesthesia problems Neg Hx Current Medications: Current Outpatient Medications: ascorbic acid, vitamin C, (VITAMIN C) 1000 mg tablet, Take 1 tablet (1,000 mg total) by mouth in the morning. Indications: inadequate vitamin C., Disp: , Rfl: buPROPion XL (WELLBUTRIN XL) 150 mg 24 hr tablet, Take 1 tablet (150 mg total) by mouth every morning Indications: anxiousness associated with depression. anxiety, Disp: , Rfl: cetirizine (ZyrTEC) 10 mg tablet, Take 1 tablet (10 mg total) by mouth in the morning. Indications: inflammation of the nose due to an allergy., Disp: , Rfl: cholecalciferol, vitamin D3, 2,000 units tablet, Take 1 tablet (2,000 Units total) by mouth in the morning. Indications: prevention of vitamin D deficiency., Disp: , Rfl: zinc gluconate 50 mg tablet, Take 1 tablet (50 mg total) by mouth in the morning. Indications: deficiency of zinc., Disp: , Rfl: Review of systems: Review of Systems Constitutional: Negative. HENT: Negative. Respiratory: Negative. Cardiovascular: Negative. Musculoskeletal: Negative. Skin: Negative. Physical Examination: Vitals: 08/06/24 1330 BP: 115/82 Pulse: 74 Temp: 36.5 C (97.7 F) Body mass index is 23.24 kg/m . General appearance - alert, well appearing, and in no distress Mental status - alert, oriented to person, place, and time Eyes - sclera anicteric Neck - supple Chest - non-labored breathing Heart - regular rate Abdomen - soft, nontender, nondistended. Extremities - no lower leg edema; no ulcers Vascular- peripheral pulses intact. Focused examination - bilateral breasts incisions are clean, dry and intact. Medial portion of incisions are mildly hypertrophic. Implants are soft. Superior hollowing present bilaterally. Nipple-areolar complexes are surgically absent. Assessment : 1. Pre-op evaluation 2. Breast asymmetry following reconstructive surgery Preoperative packet reviewed. Risks, benefits and alternatives of proposed procedure reviewed with patient and or guardian, whom are agreeable. Written consent obtained. Reviewed postoperative instructions & restrictions. Post-operative appointments scheduled. Patient encouraged to call office with any questions or concerns prior to, or after, surgery. Planned Procedure: liposuction of the abdomen with fat grafting to bilateral breast and possible steroid injections to bilateral breasts medial scars. - KEVIN Lorenzana 08/06/24 2:48 PM Please note that portions of this note were generated using voice recognition [employer] dictation software. Although every effort was made to ensure the accuracy of this automated wireless manager, some errors in wireless manager may have occurred. KEVIN Cisse 08/06/24 1448 documented in this encounter [facility] 08-06-2024 Instructions Formatting of th is note might be different from the original. Your surgery/procedure is scheduled at [facility] on 08/23/2024 at 1445 Arrival Time 1245 [facility] Address: [address] [place] [address], [id number] [address] in the Emergency Center Parking lot. Report to the front end specialist in the Emergency/Surgery Registration lobby of the hospital. Notify your SURGEON if you develop any illness such as a cold, cough, fever, sore throat, vomiting or are hospitalized between now and your surgery. Please call Pre-Admission Clinic at [phone] if you have any questions prior to surgery. For questions the morning of surgery, call the Pre-op Department at [phone]. Medication Instructions (Do not stop your medications without consulting the prescribing physician). Take the following medications the morning of surgery with a sip of water: Wellbutrin Diabetic or Weight loss medications: HOLD Na LAST DOSE Na Take inhalers as prescribed the morning of surgery. Due to the risk associated with these medications. If these medications are not held per instruction below, your surgery is at an increased risk for cancellation SGLT2 Medications- Hold 3 days prior to surgery: Jardiance, Empagliflozin, Farxiga, Dapagliflozin, Invokana, Canagliflozin, Trijardy, Synjardy GLP-1 Medications (Injection or Pill)- If taken daily hold day of surgery. If taken weekly, hold 1 week prior to surgery: Adlyxin, Byetta, Bydureon, Ozempic, Rybelsus,Trulicity, Victoza, Wegovy, Lixisenatide, Exenatide, Semaglutide, Dulaglutide, Liraglutide GIP/GLP-1(Injection or Pill)- If taken daily hold day of surgery. If taken weekly, hold 1 week prior to surgery: Mounjaro . Blood thinners: Please contact your prescribing physician regarding a stop/hold date for these medications. Medications such as Coumadin, Heparin, Aspirin, Plavix, Eliquis, Pradaxa Diabetics: If you take insulin, contact your prescribing doctor for instructions on how to manage this the night before and the morning of surgery. Non-steriodal Anti-Inflammatory Drugs (NSAIDS)- Hold 3 days prior to surgery unless otherwise directed by your surgeon. Vitamins/Herbal Products: You may continue to take your prescribed vitamins such as potassium, iron, vitamin B, vitamin C, or multivitamin unless specifically instructed by your surgeon to hold. STOP taking all herbal products/teas one week prior to your surgery. Marijuana: Stop marijuana 72 hours prior to surgery, stop CBD oil 48 hours prior to surgery. If you have been given bowel prep instructions by your surgeon, please call the surgeon's office with any questions about these instructions. What do I do the day of Surgery? Age 2 through adult - Stop all solids by midnight, You may have clear liquids up to 2 hours before surgery, unless otherwise instructed by your surgeon Clear liquids are: water, sports drinks such as Gatorade or G2, or apple juice. You may NOT have: tube feedings, dairy products, alcoholic beverages, orange juice, or any liquids with solids or pulp in it If applicable, shower again with CHG soap the morning of your surgery. If you received a green plastic bracelet, bring it with you the day of surgery and your nurse will put it on you. What do I need to do to prepare for surgery? If you will be going home the same day as your surgery, arrange for an adult over [address] Riding in a bus or taxi by yourself is not permitted. You should not smoke or drink alcohol 24 hours before your surgery. Smoking increases the risk of breathing problems after surgery. Alcohol thins the blood and may cause bleeding problems during surgery If you have been assigned JERAMY Education by your surgeon's office, please complete this education prior to your surgery. For questions regarding JERAMY education, reach out to your surgeons office. If you have been given a prescription for occupational, physical or speech therapy, please set up these appointments before your procedure. If you would like to schedule therapy at a [facility] facility, please call [phone] ([phone]). Do not use lotions, creams, powders, perfume, make up, cologne or after-shaves day of surgery. Remove ALL jewelry including wedding rings, body piercings, hair extensions that contain metal, nail greenlandic, make-up, and contact lens. You may brush your teeth the morning of surgery, but do not swallow the water. Wear your dentures and partial plates to the hospital (no adhesive). Shower the night the before. If applicable, use the CHG (chlorhexidine gluconate) soap or wipes. Please place clean linens on your bed after showering. Do not allow your pets in your bed. Please be advised, [employer] has transitioned to a cashless payment system. What should I bring to the hospital? If you received a green plastic bracelet, bring it with you the day of surgery and your nurse will put it on you. Eyeglass or contact lens case If you will be spending the night, please bring personal care items and leave them in the car until you are taken to your room after surgery. Leave ALL valuables at home. If any of these instructions conflict with those you recieved from the surgeon, please seek clarification from your surgeon's office. DEEP BREATHING EXERCISES This exercise helps promote good air exchange and helps to prevent pneumonia after surgery. Breathe in slowly and deeply through the nose. Hold your breath for a few seconds and then exhale slowly through the mouth. Repeat this three times and then cough. Coughing helps to clear your lungs. If you have had a surgery with an incision into your abdomen or chest, press gently against your incision with a pillow or a folded blanket when you cough. Please be aware - it may not be anthony to cough following some types of surgeries involving the eyes, ears, sinuses and throat. Always follow your doctor's instructions. LEG EXERCISES These exercises help promote good circulation and help to prevent blood clots after surgery. Point your toes to the ceiling and then point them to the wall. Do this slowly about 15-20 times. You may also move your feet in circles. Do the exercise that is most comfortable for you. If you have had surgery involving your shoulder or arm, we recommend you move your fingers. PRACTICING We ask that you begin practicing these exercises before your surgery. After surgery try to do both exercises at least every 2 hours during the day and early evening. Surgical Site Infection Prevention What is a Surgical Site Infection (SSI)? Infection can happen to the area of the body where surgery is done. This is called a surgical site infection (SSI). A SSI does not happen very often. What are some of the things that hospitals are doing to prevent SSIs? Soap and water or alcohol hand rub are used before and after caring for each patient. Special soap is used to clean surgery workers hands and arms just before the surgery. Masks, gowns, gloves and hair covers are worn during the surgery to keep the area clean. Hair in the surgery area may be removed with clippers (not razors). A special soap that kills germs is used to clean the skin at the surgery site. Antibiotics may be given before the surgery starts. What can you do to prevent SSIs? Before surgery: You may be asked to shower or bathe with a special soap that kills germs the night before and the day of surgery. Use the soap as you were told. Place clean sheets on your bed the night before surgery and do not allow your pets in your bed. If you smoke or vape, stop or cut down. This creates a stress response in your body that increases inflammation, constricts blood vessels and deprives your tissues of oxygen. After surgery, this stress response disrupts the travel of oxygen, nutrients, and blood to your surgical site, interfering with the wound healing process. It also decreases the ability of your cells to fight infection. Ask your doctor about ways to quit. If you have high blood sugars or diabetes please talk with your doctor about having healthy blood sugar levels to promote healing. Do not shave near where you will have surgery. Shaving can irritate the skin and make it easier to get and infection. After surgery: Be sure that the doctors and nurses clean their hands before and after touching you. Be sure your family and friends clean their hands before and after visiting you. Do not be afraid to remind them. Always wash your hands before touching your incisional area. * Care for your wound at home as told by your doctor or nurse * Call your doctor right away if you have fever, redness, increased pain, or drainage at the surgery site. Can SSIs be treated? Antibiotics are used to treat SSI. Some patients may need another surgery to treat the infection. The doctor will discuss treatment options with you. Further questions? Contact the doctor, nurse or the Infection Prevention and Control department if you have any questions. PATIENT RIGHTS AND RESPONSIBILITIES As a patient at [facility], you have the right to: Receive medical care and be informed of who is taking care of you Be treated with dignity and respect Have a family member/herbicide service sales representative of choice and your physician notified of your admission Receive information and actively participate in decisions about your care and treatment Refuse care, treatment and services Decide who may provide your support and speak for you Access rastafari and spiritual services Participate in ethical issues and questions about your care Receive private and confidential care Have appropriate assessment and management of your pain Know guest visitation restrictions or limitations Have an advance directive Access protective services Consent or refuse to participate in research studies or production or recordings, films or other images Have resolution of your complaints Receive information of hospital charges and payment methods Patient/patient herbicide service sales representative responsibilities are to: Provide information about health status to facilitate care, treatment and services Follow the treatment, plan, keep appointments and speak up when you do not understand the plan Respect the rights of other patients and healthcare personnel Follow organizational rules and regulations that support quality care and a safe environment Fulfill financial obligations as promptly as possible PATIENT RIGHTS AND RESPONSIBILITIES As a patient at [facility], you have the right to: Receive medical care and be informed of who is taking care of you Be treated with dignity and respect Have a family member/herbicide service sales representative of choice and your physician notified of your admission Receive information and actively participate in decisions about your care and treatment Refuse care, treatment and services Decide who may provide your support and speak for you Access rastafari and spiritual services Participate in ethical issues and questions about your care Receive private and confidential care Have appropriate assessment and management of your pain Know guest visitation restrictions or limitations Have an advance directive Access protective services Consent or refuse to participate in research studies or production or recordings, films or other images Have resolution of your complaints Receive information of hospital charges and payment methods Patient/patient herbicide service sales representative responsibilities are to: Provide information about health status to facilitate care, treatment and services Follow the treatment, plan, keep appointments and speak up when you do not understand the plan Respect the rights of other patients and healthcare personnel Follow organizational rules and regulations that support quality care and a safe environment Fulfill financial obligations as promptly as possible Surgical Site Infection Prevention What is a Surgical Site Infection (SSI)? Infection can happen to the area of the body where surgery is done. This is called a surgical site infection (SSI). A SSI does not happen very often, but it is important for the hospital and you to do everything possible to avoid a SSI. What are some of the things that hospitals are doing to prevent SSIs? Soap and water or alcohol hand rub are used before and after caring for each patient. Special soap is used to clean surgery workers hands and arms just before the surgery. Masks, gowns, gloves and hair covers are worn during the surgery to keep the area clean. Hair in the surgery area may be removed with clippers (not razors). A special soap that kills germs is used to clean the skin at the surgery site. Antibiotics may be given before the surgery starts. What can you do to prevent SSIs? Before surgery: You may be asked to shower or bathe with a special soap that kills germs the night before and the day of surgery. Use the soap as you were told. Place clean sheets on your bed the night before surgery and do not allow your pets in your bed. If you smoke or vape, stop or cut down. This creates a stress response in your body that increases inflammation, constricts blood vessels and deprives your tissues of oxygen. After surgery, this stress response disrupts the travel of oxygen, nutrients, and blood to your surgical site, interfering with the wound healing process. It also decreases the ability of your cells to fight infection. Ask your doctor about ways to quit. If you have high blood sugars or diabetes please talk with your doctor about having healthy blood sugar levels to promote healing. Do not shave near where you will have surgery. Shaving can irritate the skin and make it easier to get and infection. After surgery: Be sure that the doctors and nurses clean their hands before and after touching you. Be sure your family and friends clean their hands before and after visiting you. Do not be afraid to remind them. Always wash your hands before touching your incisional area. * Care for your wound at home as told by your doctor or nurse * Call your doctor right away if you have fever, redness, increased pain, or drainage at the surgery site. Can SSIs be treated? Antibiotics are used to treat SSI. Some patients may need another surgery to treat the infection. The doctor will discuss treatment options with you. Further questions? Contact the doctor, nurse or the Infection Prevention and Control department if you have any questions. [facility] 08-06-2024 Miscellaneous Notes Your surgery/procedure is scheduled at [facility] on 08/23/2024 at 1445 Arrival Time [address] [place] [address] Address: [address] [place] [address], [address] [address] in the Emergency Center Parking lot. Report to the front end specialist in the Emergency/Surgery Registration lobby of the hospital. Notify your SURGEON if you develop any illness such as a cold, cough, fever, sore throat, vomiting or are hospitalized between now and your surgery. Please call Pre-Admission Clinic at [phone] if you have any questions prior to surgery. For questions the morning of surgery, call the Pre-op Department at [phone]. Medication Instructions (Do not stop your medications without consulting the prescribing physician). Take the following medications the morning of surgery with a sip of water: Wellbutrin Diabetic or Weight loss medications: HOLD Na LAST DOSE Na Take inhalers as prescribed the morning of surgery. Due to the risk associated with these medications. If these medications are not held per instruction below, your surgery is at an increased risk for cancellation SGLT2 Medications- Hold 3 days prior to surgery: Jardiance, Empagliflozin, Farxiga, Dapagliflozin, Invokana, Canagliflozin, Trijardy, Synjardy GLP-1 Medications (Injection or Pill)- If taken daily hold day of surgery. If taken weekly, hold 1 week prior to surgery: Adlyxin, Byetta, Bydureon, Ozempic, Rybelsus,Trulicity, Victoza, Wegovy, Lixisenatide, Exenatide, Semaglutide, Dulaglutide, Liraglutide GIP/GLP-1(Injection or Pill)- If taken daily hold day of surgery. If taken weekly, hold 1 week prior to surgery: Celestinounjaro . Blood thinners: Please contact your prescribing physician regarding a stop/hold date for these medications. Medications such as Coumadin, Heparin, Aspirin, Plavix, Eliquis, Pradaxa Diabetics: If you take insulin, contact your prescribing doctor for instructions on how to manage this the night before and the morning of surgery. Non-steriodal Anti-Inflammatory Drugs (NSAIDS)- Hold 3 days prior to surgery unless otherwise directed by your surgeon. Vitamins/Herbal Products: You may continue to take your prescribed vitamins such as potassium, iron, vitamin B, vitamin C, or multivitamin unless specifically instructed by your surgeon to hold. STOP taking all herbal products/teas one week prior to your surgery. Marijuana: Stop marijuana 72 hours prior to surgery, stop CBD oil 48 hours prior to surgery. If you have been given bowel prep instructions by your surgeon, please call the surgeon's office with any questions about these instructions. What do I do the day of Surgery? Age 2 through adult - Stop all solids by midnight, You may have clear liquids up to 2 hours before surgery, unless otherwise instructed by your surgeon Clear liquids are: water, sports drinks such as Gatorade or G2, or apple juice. You may NOT have: tube feedings, dairy products, alcoholic beverages, orange juice, or any liquids with solids or pulp in it If applicable, shower again with CHG soap the morning of your surgery. If you received a green plastic bracelet, bring it with you the day of surgery and your nurse will put it on you. What do I need to do to prepare for surgery? If you will be going home the same day as your surgery, arrange for an adult over [address] Riding in a bus or taxi by yourself is not permitted. You should not smoke or drink alcohol 24 hours before your surgery. Smoking increases the risk of breathing problems after surgery. Alcohol thins the blood and may cause bleeding problems during surgery If you have been assigned JERAMY Education by your surgeon's office, please complete this education prior to your surgery. For questions regarding JERAMY education, reach out to your surgeons office. If you have been given a prescription for occupational, physical or speech therapy, please set up these appointments before your procedure. If you would like to schedule therapy at a [facility] facility, please call [phone] ([phone]). Do not use lotions, creams, powders, perfume, make up, cologne or after-shaves day of surgery. Remove ALL jewelry including wedding rings, body piercings, hair extensions that contain metal, nail greenlandic, make-up, and contact lens. You may brush your teeth the morning of surgery, but do not swallow the water. Wear your dentures and partial plates to the hospital (no adhesive). Shower the night the before. If applicable, use the CHG (chlorhexidine gluconate) soap or wipes. Please place clean linens on your bed after showering. Do not allow your pets in your bed. Please be advised, [employer] has transitioned to a cashless payment system. What should I bring to the hospital? If you received a green plastic bracelet, bring it with you the day of surgery and your nurse will put it on you. Eyeglass or contact lens case If you will be spending the night, please bring personal care items and leave them in the car until you are taken to your room after surgery. Leave ALL valuables at home. If any of these instructions conflict with those you recieved from the surgeon, please seek clarification from your surgeon's office. DEEP BREATHING EXERCISES This exercise helps promote good air exchange and helps to prevent pneumonia after surgery. Breathe in slowly and deeply through the nose. Hold your breath for a few seconds and then exhale slowly through the mouth. Repeat this three times and then cough. Coughing helps to clear your lungs. If you have had a surgery with an incision into your abdomen or chest, press gently against your incision with a pillow or a folded blanket when you cough. Please be aware - it may not be anthony to cough following some types of surgeries involving the eyes, ears, sinuses and throat. Always follow your doctor's instructions. LEG EXERCISES These exercises help promote good circulation and help to prevent blood clots after surgery. Point your toes to the ceiling and then point them to the wall. Do this slowly about 15-20 times. You may also move your feet in circles. Do the exercise that is most comfortable for you. If you have had surgery involving your shoulder or arm, we recommend you move your fingers. PRACTICING We ask that you begin practicing these exercises before your surgery. After surgery try to do both exercises at least every 2 hours during the day and early evening. Surgical Site Infection Prevention What is a Surgical Site Infection (SSI)? Infection can happen to the area of the body where surgery is done. This is called a surgical site infection (SSI). A SSI does not happen very often. What are some of the things that hospitals are doing to prevent SSIs? Soap and water or alcohol hand rub are used before and after caring for each patient. Special soap is used to clean surgery workers hands and arms just before the surgery. Masks, gowns, gloves and hair covers are worn during the surgery to keep the area clean. Hair in the surgery area may be removed with clippers (not razors). A special soap that kills germs is used to clean the skin at the surgery site. Antibiotics may be given before the surgery starts. What can you do to prevent SSIs? Before surgery: You may be asked to shower or bathe with a special soap that kills germs the night before and the day of surgery. Use the soap as you were told. Place clean sheets on your bed the night before surgery and do not allow your pets in your bed. If you smoke or vape, stop or cut down. This creates a stress response in your body that increases inflammation, constricts blood vessels and deprives your tissues of oxygen. After surgery, this stress response disrupts the travel of oxygen, nutrients, and blood to your surgical site, interfering with the wound healing process. It also decreases the ability of your cells to fight infection. Ask your doctor about ways to quit. If you have high blood sugars or diabetes please talk with your doctor about having healthy blood sugar levels to promote healing. Do not shave near where you will have surgery. Shaving can irritate the skin and make it easier to get and infection. After surgery: Be sure that the doctors and nurses clean their hands before and after touching you. Be sure your family and friends clean their hands before and after visiting you. Do not be afraid to remind them. Always wash your hands before touching your incisional area. * Care for your wound at home as told by your doctor or nurse * Call your doctor right away if you have fever, redness, increased pain, or drainage at the surgery site. Can SSIs be treated? Antibiotics are used to treat SSI. Some patients may need another surgery to treat the infection. The doctor will discuss treatment options with you. Further questions? Contact the doctor, nurse or the Infection Prevention and Control department if you have any questions. PATIENT RIGHTS AND RESPONSIBILITIES As a patient at [facility], you have the right to: Receive medical care and be informed of who is taking care of you Be treated with dignity and respect Have a family member/herbicide service sales representative of choice and your physician notified of your admission Receive information and actively participate in decisions about your care and treatment Refuse care, treatment and services Decide who may provide your support and speak for you Access rastafari and spiritual services Participate in ethical issues and questions about your care Receive private and confidential care Have appropriate assessment and management of your pain Know guest visitation restrictions or limitations Have an advance directive Access protective services Consent or refuse to participate in research studies or production or recordings, films or other images Have resolution of your complaints Receive information of hospital charges and payment methods Patient/patient herbicide service sales representative responsibilities are to: Provide information about health status to facilitate care, treatment and services Follow the treatment, plan, keep appointments and speak up when you do not understand the plan Respect the rights of other patients and healthcare personnel Follow organizational rules and regulations that support quality care and a safe environment Fulfill financial obligations as promptly as possible PATIENT RIGHTS AND RESPONSIBILITIES As a patient at [facility], you have the right to: Receive medical care and be informed of who is taking care of you Be treated with dignity and respect Have a family member/herbicide service sales representative of choice and your physician notified of your admission Receive information and actively participate in decisions about your care and treatment Refuse care, treatment and services Decide who may provide your support and speak for you Access rastafari and spiritual services Participate in ethical issues and questions about your care Receive private and confidential care Have appropriate assessment and management of your pain Know guest visitation restrictions or limitations Have an advance directive Access protective services Consent or refuse to participate in research studies or production or recordings, films or other images Have resolution of your complaints Receive information of hospital charges and payment methods Patient/patient herbicide service sales representative responsibilities are to: Provide information about health status to facilitate care, treatment and services Follow the treatment, plan, keep appointments and speak up when you do not understand the plan Respect the rights of other patients and healthcare personnel Follow organizational rules and regulations that support quality care and a safe environment Fulfill financial obligations as promptly as possible Surgical Site Infection Prevention What is a Surgical Site Infection (SSI)? Infection can happen to the area of the body where surgery is done. This is called a surgical site infection (SSI). A SSI does not happen very often, but it is important for the hospital and you to do everything possible to avoid a SSI. What are some of the things that hospitals are doing to prevent SSIs? Soap and water or alcohol hand rub are used before and after caring for each patient. Special soap is used to clean surgery workers hands and arms just before the surgery. Masks, gowns, gloves and hair covers are worn during the surgery to keep the area clean. Hair in the surgery area may be removed with clippers (not razors). A special soap that kills germs is used to clean the skin at the surgery site. Antibiotics may be given before the surgery starts. What can you do to prevent SSIs? Before surgery: You may be asked to shower or bathe with a special soap that kills germs the night before and the day of surgery. Use the soap as you were told. Place clean sheets on your bed the night before surgery and do not allow your pets in your bed. If you smoke or vape, stop or cut down. This creates a stress response in your body that increases inflammation, constricts blood vessels and deprives your tissues of oxygen. After surgery, this stress response disrupts the travel of oxygen, nutrients, and blood to your surgical site, interfering with the wound healing process. It also decreases the ability of your cells to fight infection. Ask your doctor about ways to quit. If you have high blood sugars or diabetes please talk with your doctor about having healthy blood sugar levels to promote healing. Do not shave near where you will have surgery. Shaving can irritate the skin and make it easier to get and infection. After surgery: Be sure that the doctors and nurses clean their hands before and after touching you. Be sure your family and friends clean their hands before and after visiting you. Do not be afraid to remind them. Always wash your hands before touching your incisional area. * Care for your wound at home as told by your doctor or nurse * Call your doctor right away if you have fever, redness, increased pain, or drainage at the surgery site. Can SSIs be treated? Antibiotics are used to treat SSI. Some patients may need another surgery to treat the infection. The doctor will discuss treatment options with you. Further questions? Contact the doctor, nurse or the Infection Prevention and Control department if you have any questions. documented in this encounter [facility] 08-05-2024 Miscellaneous Notes SPOKE WITH PT Due to a in the family surgery had to be rescheduled. New surgery date is 08/23 at 2:45pm arrive at 1:45pm. 1st PO: 08/30 10am 6wk PO: 10/03 1:45pm documented in this encounter [facility] 08-05-2024 Telephone encounter Note SPOKE WITH PT Due to a in the family surgery had to be rescheduled. New surgery date is 08/23 at 2:45pm arrive at 1:45pm. 1st PO: 08/30 10am 6wk PO: 10/03 1:45pm [facility] 06-13-2024 History of Presen t illness Narrative [facility] [address] Office Den Carpio MD, PhD Vasiliy Rae, VENEER CLIPPER HELPER-ASSEMBLING FABRICATOR RAIN Ruelas, VENEER CLIPPER HELPER-ASSEMBLING FABRICATOR Plastic Surgery Progress Note Reason for visit : post-op History of present illness: : Shari Hyde 43 y.o. is here today for a follow up after bilateral skin sparing mastectomies (Dr. Johnson) with direct to implant reconstruction (Sientra, smooth round, silicone, moderate profile, HSC+, 425cc bilaterally) w/ AlloDerm envelope and inferior de-epithelialized autoderm flap on 01/23/24. She presents today for follow up and to discuss possible reconstructive options. She is experiencing a lot of discomfort over her medial breast scars. She states that they feel thicker and are more tender. She is otherwise happy with her volume and shape. The patient is doing well postoperatively. The patient denies fever, chills, redness or drainage from surgical wound(s). Review of Systems: Denies surgical site concerns. All other symptoms negative except as noted in HPI. Physical Examination: Vitals: 06/13/24 1356 BP: 113/77 Pulse: 96 Temp: 36.5 C (97.7 F) There is no height or weight on file to calculate BMI. GENERAL: no acute distress, well developed, well nourished. LYMPHATIC: no upper extremity lymphedema NEUROLOGIC: alert and oriented to time, place and person. PSYCH: judgement and insight good, mood/affect full range. Focused examination : mild hypertrophy over medial breast scars. Breast shapes/volume are near comparable. She has some areas with loss of fullness/hollowing within the superior poles of each breast. Incisions are all healed. No significant rippling appreciated, no contracture. Breasts are soft on palpation. Impression: 1. History of right breast cancer 2. Breast asymmetry following reconstructive surgery Recommendations: We advised that she begin with massage to her scars before considering injection. We pointed out the hollowing within the superomedial aspect of the right breast and superolateral aspect of the left breast which, she acknowledges. We suggested liposuction fat grafting to the superior poles of each breast. We can also plan on steroid injections into the medial scars at the time of surgery if there is no improvement with conservative measures. She and her spouse are open and agreeable to the treatment plan. We will submit a request for surgery and notify her of a proposed surgical date once obtained. MIRACLE PAREKH PA-C I, DEN CARPIO MD, PHD personally performed the face to face evaluation on this patient on June 13, 2024. The patient was seen with Miracle Parekh PA-C. I discussed with the patient and confirmed the accuracy and completeness of the aforementioned history, and I personally performed the clinical examination of the patient. I have established and discussed the course of treatment with the patient. My medical decision making and treatment plan are as follows: Plan as above. Den Carpio MD, PhD [facility] Plastic & Reconstructive Surgery Total time spent was 35 minutes: Preparing to see the patient (e.g., review of tests) Obtaining and/or reviewing separately obtained history Performing a medically appropriate examination and/or evaluation Counseling and educating the patient/family/caregiver Ordering medications, tests, or procedures Referring and communicating with other health associate director career services (not separately reported) Documenting clinical information in the electronic or other health record Please note that portions of this note were generated using voice recognition [employer] dictation software. Although every effort was made to ensure the accuracy of this automated wireless manager, some errors in wireless manager may have occurred. documented in this encounter [facility] 05-14-2024 Evaluation note Diagnosis Onset Date Resolution Influenza A acute May 14, 2024 9:23am URI (upper respiratory infection) noneactive July 07, 2024 9:11am [facility] Work Phone: 1(471) 486-903511-07-2024 History of Present illness Narrative* Den Carpio MD - 03/07/2024 8:45 AM EST [facility] Plastic & Reconstructive Surgery [address] Office Den Carpio MD, PhD Vasiliy Rae, VENEER CLIPPER HELPER-ASSEMBLING FABRICATOR RAIN Ruelas, VENEER CLIPPER HELPER-ASSEMBLING FABRICATOR Plastic Surgery Progress Note Reason for visit : Postop check History of present illness: Shari Hyde 43 y.o. is here today for a follow up after undergoing DTI reconstruction approximately 6 weeks ago with permanent silicone implants. She returns to clinic today for routine follow up. Her postoperative course has been relatively unremarkable. She is pleased with the aesthetic results of her reconstruction. She denies pain. No interval changes in medical history. Review of Systems Negative for fevers, chills. Denies surgical site concerns. All other symptoms negative except as noted in HPI. Physical Examination: There were no vitals filed for this visit. There is no height or weight on file to calculate BMI. GENERAL: no acute distress, well developed, well nourished. LYMPHATIC: no upper extremity lymphedema; extremities warm, well perfused. NEUROLOGIC: alert and oriented to time, place and person. PSYCH: judgement and insight good, mood/affect full range. Focused examination : Excellent symmetry with regard to the patient's breast size, shape and contour, bilateral breast implants are soft and seated appropriately along their respective inframammary folds, bilateral Anthony pattern mastectomy incisions are well healed with no open wounds or signs of active infection, a small spit sutures removed from each of the bilateral breast T junctions, bilateral nipples are surgically absent, mild superior hollowing is present on both sides, no palpable fluidcollections Female plastic products sales representative present - yes Impression: Status post DTI reconstruction with permanent silicone implants approximately 6 weeks ago; fully healed; no issues Recommendations: The patient is now fully recovered from her DTI reconstruction. She has no furtherpostoperative activity restrictions at this time. She can wear any bra of her preference, includingunderwire bras. Discussed scar maintenance, including scar massage and avoidance of prolonged sun exposure. I anticipate the patient's breasts will settle a little bit more over time. Discussed potential revision surgeries, including autologous fat grafting to superior poles of both breasts, but I would like to give the patient ample time for all of her soft tissues to relax and scars to fully mature before considering revision surgery. She should return to clinic in May or June of nextyear for repeat evaluation, or sooner if any concerns. Discussed FDA recommendations for implant surveillance, including baseline ultrasound or MRI at 5-6 years and then every 2-3 years thereafter todetect early implant rupture. Please note that portions of this note were generated using voice recognition [employer] dictation software. Although every effort was made to ensure the accuracy of this automated wireless manager, some errors in wireless manager may have occurred. I, DEN CARPIO MD, PHD personally performed the face to face evaluation on this patient. I discussed with the patient and confirmed the accuracy and completeness of the aforementioned history,and I personally performed the clinical examination of the patient. I have established and discussed the course of treatment with the patient. Den Carpio MD, PhD [facility] Plastic & Reconstructive Surgery Total time spent was 20 minutes: Preparing to see the patient (e.g., review of tests) Obtaining and/or reviewing separately obtained history Performing a medically appropriate examination and/or evaluation Counseling and educating the patient/family/caregiver Ordering medications, tests, or procedures Referring and communicating with other health associate director career services (not separately reported) Documenting clinical information in the electronic or other health record Independently interpreting results (not separately reported) and communicating results to the patient/family/caregiver Care coordination (not separately reported) [facility] History of Present illness Narrative* Debbie Yusuf, VENEER CLIPPER HELPER-ASSEMBLING FABRICATOR - 03/07/2024 8:00 AM EST Post-op Visit HPI: Shari Hyde who underwent Right skin-sparing mastectomy and Left risk- reducing skin-sparing mastectomy with silicone implant placement on 01/23/24 . Surgical pathology demonstrated 3 mm of right breast ductal carcinoma in Situ, surgical margins negative. TODAY'S VISIT: She looks great and states she has continued to do well postoperatively. She feels she has recovered well from her bilateral mastectomy with immediate implant placement on 01/23/2024. She is back to work and feeling like herself. She is happy with her cosmetic appearance and denies any new chest wall masses or skin changes. Here today with her Physical Exam Chest: PATHOLOGY: Patient Name:SHARI HYDE:1980 (Age: 43)Gender:FTaken:01/23/2024eported:02/05/2024hysician(s):Freda Johnson MD ([phone])Copy To:Den Navin Carpio, [facility] Centeression #:[id number]. Rec. #:[id number]: #[id number] Final Pathologic Diagnosis 1. Left breast mastectomy: BENIGN: Breast tissue with diffuse fibrocystic changes 2. Right breast mastectomy: DUCTAL CARCINOMA IN SITU (DCIS), intermediate grade (3 mm in greatest dimension) (pTis) Margins are negative (closest is anterior, see true margin below) Previous biopsy site present and completely excised 3. Right breast mastectomy additional margin anterior: Negative for neoplasm (9 mm thickness) CANCER CASE SUMMARY (DCIS of the Breast: Resection) Procedure: Mastectomy Specimen laterality: Right TUMOR: Histologic type: ductal Size (extent) of DCIS: estimated size (extent) at least 3 mm Nuclear grade: 2 Necrosis: Absent MARGINS: Negative REGIONAL LYMPH NODES: Not applicable (no regional lymph nodes submitted or found) DISTANT METASTASIS: N/A PATHOLOGIC STAGE CLASSIFICATION (pTNM, AJCC 8th Edition) TNM descriptors: N/A pT category: pTis Regional lymph nodes modifier: N/A pN category: pNx SPECIAL STUDIES: Breast biomarker testing please see below BREAST BIOMARKER REPORTING TEMPLATE - Ductal Carcinoma in Situ Estrogen Receptor (ER) Positive (percentage of cells with nuclear positivity: 99%); Average intensity of staining: Moderate-Strong Progesterone Receptor (PgR) Positive (percentage of cells with nuclear positivity: 90%); Average intensity of staining: Dim-Moderate Assessment/Plan: Shari Hyde is a 43 y.o. 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 Seventy gene [employer] testing negative for pathogenic mutations Medical oncology-Dr Byron Johnson previously called patient with her surgical pathology results She has recovered well from surgery She has a follow-up appointment with Plastic surgery this morning She will continue monthly self chest wall exams and call with any concerns She agrees to follow up in our office annually for surveillance exam is, she will call to schedule appointment for next March or sooner with any concerns She verbalized understanding to call our office with any questions or concerns prior to next appointment, as we are always here for her Debbie Yusuf CNP Breast Surgical Oncology [facility] [place] Shari was seen today for post-op. Diagnoses and all orders for this visit: Ductal carcinoma in situ (DCIS) of right breast Postoperative visit Status post bilateral mastectomy KEVIN Barajas 03/07/24 0911 documented in this encounterPro[facility]10-[facility]24 History of Present illness Narrative* KEVIN Cisse - 02/13/2024 8:30 AM EDT [facility] Plastic & Reconstructive Surgery [address] Office Den Carpio MD, PhD KEVIN Cisse PA-C Plastic Surgery Progress Note Reason for visit : Routine post operative appointment. History of present illness: Shari Hyde 43 y.o. is here today for a follow up after bilateralskin sparing mastectomies (Dr. Johnson) with direct to implant reconstruction (Sientra, smooth round,silicone, moderate profile, HSC+, 425cc bilaterally) w/ AlloDerm envelope and inferior de-epithelialized autoderm flap on 01/23/24. She presents to the office today for routine 3 week postop appointment. She states she is doing well. She does have some mild discomfort along the right lateral portionof her incision. She does also have some issues getting comfortable trying to sleep. She denies anyother surgical site concerns. Review of Systems: Negative for fevers, chills. Denies surgical site concerns. All other symptoms negative except as noted in HPI. Physical Examination: Vitals: 02/13/24 0828 BP: (!) 132/93 Pulse: 76 Resp: 14 There is no height or weight on file to calculate BMI. General exam: Alert and oriented x 3, comfortable, non-toxic. S1, S2. Nonlabored breathing. Abdomen soft/non-tender/non-distended. Extremities warm, well perfused. Negative Yogesh's sign. Focused examination : Bilateral breast incisions are clean, dry and intact. No erythema or necrosispresent. No fluid collections palpated. Breast free from erythema. No signs of infection. Nipple-areolar complexes are surgically absent. Impression: 1. Encounter for postoperative care 2. S/P breast reconstruction, bilateral 3. Acquired absence of breast, bilateral Recommendations: Discussed with patient that she is doing well postoperatively. Discussed with patient that it is not uncommon to have some tightness along her incisions at this time. It is okay to gently massaged breast. Okay to start working on range of motion. Okay to start with light walking. Continue to refrain from any heavy lifting pushing or pulling. Continue with supportive bra. Follow-up in [address] Howell for clinical check. She was advised to call the office any questions or concerns in the interim. Please note that portions of this note were generated using voice recognition [employer] dictation software. Although every effort was made to ensure the accuracy of this automated wireless manager, some errors in wireless manager may have occurred. KEVIN Cisse 02/13/24 0855 documented in this encounterUniversity Hospitals [facility] CenterMobile Bridge [id number] History of Present illness Narrative* KEVIN Cisse - 01/30/2024 9:30 AM EDT [facility] Plastic & Reconstructive Surgery [address] Office Den Carpio MD, PhD KEVIN Cisse PA-C Plastic Surgery Progress Note Reason for visit : 1 week post operative appt. History of present illness: Shari Hyde 43 y.o. is here today for a follow up after bilateralskin sparing mastectomies (Dr. Johnson) with direct to implant reconstruction (Sientra, smooth round,silicone, moderate profile, HSC+, 425cc bilaterally) w/ AlloDerm envelope and inferior de-epithelialized autoderm flap on 01/23/24. She presents to the office today for routine postoperative follow-up. She reports that she is doing well. She does have some discomfort at her FELY drain sites. She has minimal discomfort at her breasts. Reports appetite is good. Normal bowel and bladder function. She does state she has a little bit of drainage from her left breast incision. Denies any purulence to the drainage. FELY drain 1: FELY drain 2: Review of systems: Negative for fever or chills. Denies any open wounds. Positive for drainage without purulence. Please see HPI for further review of systems. Physical Examination: Vitals: 01/30/24 0933 BP: (!) 129/92 Pulse: 91 Resp: 16 There is no height or weight on file to calculate BMI. General exam: Alert and oriented x 3, comfortable, non-toxic. S1, S2. Nonlabored breathing. Abdomen soft/non-tender/non-distended. Extremities warm, well perfused. Negative Yogesh's sign. Focused examination : Bilateral breast incisions are clean, dry and intact with Steri-Strips present. Steri-Strips removed in office given drainage. Incisions are well approximated with no open wounds. Breasts are soft. No ballotable fluid collections are palpated. Bilateral lower poles with generalized bruising. No signs of infection. Nipple-areolar complexes are surgically absent. Bilateral FELY drains in place, draining serosanguineous fluid. FELY drain sites appear benign. Impression: 1. Encounter for postoperative care 2. Ductal carcinoma in situ (DCIS) of right breast 3. Acquired absence of breast, bilateral 4. S/P breast reconstruction, bilateral Recommendations: FELY drains removed in office today. Patient tolerated well. Tubing was intact. Discussed with patient and keeping these areas covered for 2 days, then okay to leave open to air. Discussed that it is okay to shower and gently wash her breast. Okay to sleep on her sides. Discussed she should continue to refrain from lifting greater than 5 lb, pushing or pulling. Continue with supportive bra, it is okay to discontinue breast binder and where sports bra. Discussed this should be worn consistently for the next 3 weeks. 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 Work note provided to patient office today. Follow-up in 3 weeks for clinical check. She was advised to call the office any questions or concerns in the interim. - KEVIN Lorenzana 01/30/24 10:30 AM Please note that portions of this note were generated using voice recognition [employer] dictation software. Although every effort was made to ensure the accuracy of this automated wireless manager, some errors in wireless manager may have occurred. KEVIN Cisse 01/30/24 1030 documented in this encounterProtestant Hospital09-19-2024 History and physical note* KEVIN Alvarez - 01/18/2024 11:00 AM EDT PRE-ADMISSION TESTING HISTORY AND PHYSICAL EXAM DATE: 01/19/24 PCP: SANDRINE NAVA MD CHIEF COMPLAINT: breast cancer HISTORY OF PRESENT ILLNESS: Shari Hyde, a 43 y.o. White or female, presents to [facility] for a pre-surgical H&P.The patient has been diagnosed with DCIS of the right breast, ER positive, LA positive per biopsy 11/07/23. The pt states she cannot palpate a lump; it was found on screening mammogram. Per surgeon's note, genetic testing revealed no mutations. PET scan on 12/11/23 showed hypermetabolic right breast n odule consistent with malignancy. Hypermetabolic right subpectoral lymph node consistent with metastatic disease . No distant metastases. The pt denies breast pain, skin changes and nipple discharge.She denies family h/o breast cancer. Anesthesia problems: pt denies. Latex allergy: pt denies. Bleeding/ clotting disorders: pt denies. Recent hospitalizations: pt denies. PAST MEDICAL HISTORY: Past Medical History: Diagnosis Date Anxiety Cancer of right breast (CMS-HCC) 11/07/2023 DCIS Dental disease crown Fibrocystic breast changes 01/18/2024 Seasonal allergic rhinitis 01/18/2024 Symptomatic cholelithiasis 01/18/2024 had surgery 2018 PAST SURGICAL HISTORY: Past Surgical History: Procedure Laterality Date BREAST BIOPSY Right 2023 CHOLECYSTECTOMY 2018 COLONOSCOPY 2009 ESSURE TUBAL LIGATION 2007 HYSTERECTOMY 2009 one ovary removed FAMILY HISTORY: Family History Problem Relation Age of Onset Anesthesia problems Neg Hx SOCIAL HISTORY: The patient reports current alcohol use of about 4.0 standard drinks of alcohol per week. She reports that she has never smoked. She has been exposed to tobacco smoke. She has never used smokeless tobacco. She reports no history of drug use. ALLERGIES: No Known Allergies MEDICATIONS: Current Outpatient Medications: ascorbic acid, vitamin C, (VITAMIN C) 1000 mg tablet, Take 1 tablet (1,000 mg total) by mouth in the morning., Disp: , Rfl: buPROPion XL (WELLBUTRIN XL) 150 mg 24 hr tablet, Take 1 tablet (150 mg total) by mouth every morning. anxiety, Disp: , Rfl: cetirizine (ZyrTEC) 10 mg tablet, Take 1 tablet (10 mg total) by mouth in the morning. Indications:inflammation of the nose due to an allergy., Disp: , Rfl: cholecalciferol, vitamin D3, 2,000 units tablet, Take by mouth daily., Disp: , Rfl: zinc gluconate 50 mg tablet, Take 1 tablet (50 mg total) by mouth in the morning. Indications: deficiency of zinc., Disp: , Rfl: REVIEW OF SYSTEMS: Review of Systems Constitutional: Negative for fever. HENT: Positive for postnasal drip. Negative for dental problem, ear pain, rhinorrhea, sore throat and trouble swallowing. Eyes: Negative for redness. Respiratory: Positive for cough (r/t allergies, does not feel ill today). Negative for shortness ofbreath. Cardiovascular: Negative for chest pain and leg swelling. Gastrointestinal: Negative for nausea, vomiting and diarrhea. Genitourinary: Negative for dysuria and hematuria. Skin: Negative for rash and wound. Allergic/Immunologic: Positive for environmental allergies. Neurological: Negative for seizures and syncope. Psychiatric/Behavioral: The patient is not nervous/anxious. VITAL SIGNS: BP 122/80 Pulse 97 Temp 36.3 C (97.4 F) (Tympanic) Ht 177.8 cm (5' 10 ) Wt 69.4 kg (153 lb) SpO2 100% No BMI 21.95 kg/m PHYSICAL EXAM: Physical Exam Constitutional: General: She is not in acute distress. Appearance: She is not toxic-appearing or diaphoretic. HENT: Head: Atraumatic. Nose: No rhinorrhea. Mouth/Throat: Mouth: Mucous membranes are moist. Pharynx: No posterior oropharyngeal erythema. Eyes: Conjunctiva/sclera: Conjunctivae normal. Pupils: Pupils are equal, round, and reactive to light. Cardiovascular: Rate and Rhythm: Normal rate and regular rhythm. Pulses: Normal pulses. Heart sounds: No murmur heard. Pulmonary: Effort: Pulmonary effort is normal. No respiratory distress. Breath sounds: No wheezing, rhonchi or rales. Abdominal: General: Bowel sounds are normal. Tenderness: There is no guarding. Musculoskeletal: General: No swelling. Skin: General: Skin is warm and dry. Neurological: Mental Status: She is alert and oriented to person, place, and time. Psychiatric: Mood and Affect: Mood normal. Behavior: Behavior normal. Behavior is cooperative. RECENT LABS: Lab Results Component Value Date WBC 7.5 01/18/2024 HGB 14.2 01/18/2024 HCT 42.7 01/18/2024 PLT 217 01/18/2024 *Please note that labs listed above are the most recent lab values available in [facility] at the time ofthe office visit and additional labs may have been drawn since that time. ASSESSMENT / DIAGNOSIS: Linked DX: BREAST DUCTAL IN SITU RIGHT, CONTRALATERAL RISK REDUCTION BREAST LEFT PLAN: Shari Hyde is scheduled for Case Date: 01/23/2024 Linked Surgeon: Holley Johnson MD Sugg, K., MD Linked Procedure: Mastectomy Breast Simple Skin Sparing Possible Nipple Spar Right/ Mag Trace Injection/ Skin Sparing Possible Nipple Sparing Mastectomy Left Immediate Reconstruction Breast InsertionProsthetic Device (Silicone Implants) - Bilateral Skin Plasty Tissue Rearrangement De-Epithilized Alloderm Placement - Bilateral. Discussed home measures for cough/ allergy symptom relief. Pt advised to f/u with PCP and notify surgeon if symptoms worsen or fail to improve. Information for the [facility] and [facility] provided. KEVIN Alvarez 01/18/24 1148 KEVIN Alvarez 01/19/24 1248 [facility] [id number] History and physical note* KEVIN Alvarez - 01/18/2024 11:00 AM EDT PRE-ADMISSION TESTING HISTORY AND PHYSICAL EXAM DATE: 01/19/24 PCP: SANDRINE NAVA MD CHIEF COMPLAINT: breast cancer HISTORY OF PRESENT ILLNESS: Shari Hyde, a 43 y.o. White or female, presents to [facility] for a pre-surgical H&P.The patient has been diagnosed with DCIS of the right breast, ER positive, LA positive per biopsy 11/07/23. The pt states she cannot palpate a lump; it was found on screening mammogram. Per surgeon's note, genetic testing revealed no mutations. PET scan on 12/11/23 showed hypermetabolic right breast n odule consistent with malignancy. Hypermetabolic right subpectoral lymph node consistent with metastatic disease . No distant metastases. The pt denies breast pain, skin changes and nipple discharge.She denies family h/o breast cancer. Anesthesia problems: pt denies. Latex allergy: pt denies. Bleeding/ clotting disorders: pt denies. Recent hospitalizations: pt denies. PAST MEDICAL HISTORY: Past Medical History: Diagnosis Date Anxiety Cancer of right breast (CMS-HCC) 11/07/2023 DCIS Dental disease crown Fibrocystic breast changes 01/18/2024 Seasonal allergic rhinitis 01/18/2024 Symptomatic cholelithiasis 01/18/2024 had surgery 2017 PAST SURGICAL HISTORY: Past Surgical History: Procedure Laterality Date BREAST BIOPSY Right 2023 CHOLECYSTECTOMY 2018 COLONOSCOPY 2009 ESSURE TUBAL LIGATION 2007 HYSTERECTOMY 2009 one ovary removed FAMILY HISTORY: Family History Problem Relation Age of Onset Anesthesia problems Neg Hx SOCIAL HISTORY: The patient reports current alcohol use of about 4.0 standard drinks of alcohol per week. She reports that she has never smoked. She has been exposed to tobacco smoke. She has never used smokeless tobacco. She reports no history of drug use. ALLERGIES: No Known Allergies MEDICATIONS: Current Outpatient Medications: ascorbic acid, vitamin C, (VITAMIN C) 1000 mg tablet, Take 1 tablet (1,000 mg total) by mouth in the morning., Disp: , Rfl: buPROPion XL (WELLBUTRIN XL) 150 mg 24 hr tablet, Take 1 tablet (150 mg total) by mouth every morning. anxiety, Disp: , Rfl: cetirizine (ZyrTEC) 10 mg tablet, Take 1 tablet (10 mg total) by mouth in the morning. Indications:inflammation of the nose due to an allergy., Disp: , Rfl: cholecalciferol, vitamin D3, 2,000 units tablet, Take by mouth daily., Disp: , Rfl: zinc gluconate 50 mg tablet, Take 1 tablet (50 mg total) by mouth in the morning. Indications: deficiency of zinc., Disp: , Rfl: REVIEW OF SYSTEMS: Review of Systems Constitutional: Negative for fever. HENT: Positive for postnasal drip. Negative for dental problem, ear pain, rhinorrhea, sore throat and trouble swallowing. Eyes: Negative for redness. Respiratory: Positive for cough (r/t allergies, does not feel ill today). Negative for shortness ofbreath. Cardiovascular: Negative for chest pain and leg swelling. Gastrointestinal: Negative for nausea, vomiting and diarrhea. Genitourinary: Negative for dysuria and hematuria. Skin: Negative for rash and wound. Allergic/Immunologic: Positive for environmental allergies. Neurological: Negative for seizures and syncope. Psychiatric/Behavioral: The patient is not nervous/anxious. VITAL SIGNS: BP 122/80 Pulse 97 Temp 36.3 C (97.4 F) (Tympanic) Ht 177.8 cm (5' 10 ) Wt 69.4 kg (153 lb) SpO2 100% No BMI 21.95 kg/m PHYSICAL EXAM: Physical Exam Constitutional: General: She is not in acute distress. Appearance: She is not toxic-appearing or diaphoretic. HENT: Head: Atraumatic. Nose: No rhinorrhea. Mouth/Throat: Mouth: Mucous membranes are moist. Pharynx: No posterior oropharyngeal erythema. Eyes: Conjunctiva/sclera: Conjunctivae normal. Pupils: Pupils are equal, round, and reactive to light. Cardiovascular: Rate and Rhythm: Normal rate and regular rhythm. Pulses: Normal pulses. Heart sounds: No murmur heard. Pulmonary: Effort: Pulmonary effort is normal. No respiratory distress. Breath sounds: No wheezing, rhonchi or rales. Abdominal: General: Bowel sounds are normal. Tenderness: There is no guarding. Musculoskeletal: General: No swelling. Skin: General: Skin is warm and dry. Neurological: Mental Status: She is alert and oriented to person, place, and time. Psychiatric: Mood and Affect: Mood normal. Behavior: Behavior normal. Behavior is cooperative. RECENT LABS: Lab Results Component Value Date WBC 7.5 01/18/2024 HGB 14.2 01/18/2024 HCT 42.7 01/18/2024 PLT 217 01/18/2024 *Please note that labs listed above are the most recent lab values available in [facility] at the time ofthe office visit and additional labs may have been drawn since that time. ASSESSMENT / DIAGNOSIS: Linked DX: BREAST DUCTAL IN SITU RIGHT, CONTRALATERAL RISK REDUCTION BREAST LEFT PLAN: Shari Hyde is scheduled for Case Date: 01/23/2024 Linked Surgeon: Holley Johnson MD Sugg, K., MD Linked Procedure: Mastectomy Breast Simple Skin Sparing Possible Nipple Spar Right/ Mag Trace Injection/ Skin Sparing Possible Nipple Sparing Mastectomy Left Immediate Reconstruction Breast InsertionProsthetic Device (Silicone Implants) - Bilateral Skin Plasty Tissue Rearrangement De-Epithilized Alloderm Placement - Bilateral. Discussed home measures for cough/ allergy symptom relief. Pt advised to f/u with PCP and notify surgeon if symptoms worsen or fail to improve. Information for the [facility] and [facility] provided. KEVIN Alvarez 01/18/24 1148 KEVIN Alvarez 01/19/24 1248 documented in this encounterSpringfield HospitalGrain Management [id number] Instructions* Patient Instructions* Niesha Barry RN - 01/18/2024 11:00 AM EDT Your surgery/procedure is scheduled at [facility] on 01/23/24 at 7:30 Arrival Time 5:30 [facility] Address: [address] [place] [address], [address] [place] [address] in the Emergency Center Parking lot. Report to the front end specialist in the Emergency/Surgery Registration lobby of the hospital. Notify your SURGEON if you develop any illness such as a cold, cough, fever, sore throat, vomiting or are hospitalized between now and your surgery. Please call Pre-Admission Clinic at [phone] if you have any questions prior to surgery. For questions the morning of surgery, call the Pre-op Department at [phone]. Medication Instructions (Do not stop your medications without consulting the prescribing physician). Take the following medications the morning of surgery with a sip of water: Wellbutrin and Zyrtec. Diabetic or Weight loss medications: HOLD/NONE Take inhalers as prescribed the morning of surgery. Due to the risk associated with these medications. If these medications are not held per instruction below, your surgery is at an increased risk for cancellation SGLT2 Medications- Hold 3 days prior to surgery: Jardiance, Empagliflozin, Farxiga, Dapagliflozin, Invokana, Canagliflozin GLP-1 Medications (Injection or Pill)- If taken daily hold day of surgery. If taken weekly, hold 1 week prior to surgery: Adlyxin, Byetta, Bydureon, Ozempic, Rybelsus,Trulicity, Victoza, Wegovy, Lixisenatide, Exenatide, Semaglutide, Dulaglutide, Liraglutide GIP/GLP-1(Injection or Pill)- If taken daily hold day of surgery. If taken weekly, hold 1 week prior to surgery: Mounjaro . Blood thinners: Please contact your prescribing physician regarding a stop/hold date for these medications. Medications such as Coumadin, Heparin, Aspirin, Plavix, Eliquis, Pradaxa Diabetics: If you take insulin, contact your prescribing doctor for instructions on how to manage this the night before and the morning of surgery. Non-steriodal Anti-Inflammatory Drugs (NSAIDS)- Hold 3 days prior to surgery unless otherwise directed by your surgeon. Tylenol ok. Vitamins/Herbal Products: You may continue to take your prescribed vitamins such as potassium, iron, vitamin B, vitamin C, or multivitamin unless specifically instructed by your surgeon to hold. STOPtaking all herbal products/teas one week prior to your surgery. Marijuana: Stop marijuana 72 hours prior to surgery, stop CBD oil 48 hours prior to surgery. If you have been given bowel prep instructions by your surgeon, please call the surgeon's office with any questions about these instructions. What do I do the day of Surgery? Age 2 through adult - Stop all solids by midnight, You may have clear liquids up to 2 hours before surgery, unless otherwise instructed by your surgeon Clear liquids are: water, sports drinks such as Gatorade or G2, or apple juice. You may NOT have: tube feedings, dairy products, alcoholic beverages, orange juice, or any liquids with solids or pulp in it If applicable, shower again with CHG soap the morning of your surgery. If you received a green plastic bracelet, bring it with you the day of surgery and your nurse will put it on you. What do I need to do to prepare for surgery? If you will be going home the same day as your surgery, arrange for an adult over [address] Riding in a bus or taxi by yourself is not permitted. You should not smoke or drink alcohol 24 hours before your surgery. Smoking increases the risk of breathing problems after surgery. Alcohol thins the blood and may cause bleeding problems during surgery If you have been assigned JERAMY Education by your surgeon's office, please complete this education prior to your surgery. For questions regarding JERAMY education, reach out to your surgeons office. If you have been given a prescription for occupational, physical or speech therapy, please set up these appointments before your procedure. If you would [facility] to [facility], please call [phone] ([phone]). Do not use lotions, creams, powders, perfume, make up, cologne or after-shaves day of surgery. Remove ALL jewelry including wedding rings, body piercings, hair extensions that contain metal, nail greenlandic, make-up, and contact lens. You may brush your teeth the morning of surgery, but do not swallow the water. Wear your dentures and partial plates to the hospital (no adhesive). Shower the night the before. If applicable, use the CHG (chlorhexidine gluconate) soap or wipes. Please be advised, [employer] has transitioned to a cashless payment system. What should I bring to the hospital? *Meds in bottles* If you received a green plastic bracelet, bring it with you the day of surgery and your nurse will put it on you. Eyeglass or contact lens case If you will be spending the night, please bring personal care items and leave them in the car untilyou are taken to your room after surgery. Leave ALL valuables at home. If any of these instructions conflict with those you recieved from the surgeon, please seek clarification from your surgeon's office. DEEP BREATHING EXERCISES This exercise helps promote good air exchange and helps to prevent pneumonia after surgery. Breathe in slowly and deeply through the nose. Hold your breath for a few seconds and then exhale slowly through the mouth. Repeat this three times and then cough. Coughing helps to clear your lungs. If you have had a surgery with an incision into your abdomen or chest, press gently against your incision with a pillow or a folded blanket when you cough. Please be aware - it may not be anthony to cough following some types of surgeries involving the eyes,ears, sinuses and throat. Always follow your doctor's instructions. LEG EXERCISES These exercises help promote good circulation and help to prevent blood clots after surgery. Point your toes to the ceiling and then point them to the wall. Do this slowly about 15-20 times. You may also move your feet in circles. Do the exercise that is most comfortable for you. If you have had surgery involving your shoulder or arm, we recommend you move your fingers. PRACTICING We ask that you begin practicing these exercises before your surgery. After surgery try to do both exercises at least every 2 hours during the day and early evening. SURGICAL SITE INFECTION AND PREVENTION What is a Surgical Site Infection? Infection can happen to the area of the body where surgery is done. This is called a surgical site infection (SSI). A SSI does not happen very often. Can SSIs be treated? Antibiotics are used to treat SSI. Some patients may need another surgery to treat the infection. The doctor will discuss treatment options with you. What are some of the things that hospitals are doing to prevent SSIs? Soap and water or alcohol hand rub are used before and after caring for each patient.Special soap is used to clean surgery workers hands and arms just before the surgery. Masks, gowns, gloves and hair covers are worn during the surgery to keep the area clean. Hair in the surgery area may be removed with clippers (not razors). A special soap that kills germs is used to clean the skin at the surgery site. Antibiotics may be given before the surgery starts. What can you do to prevent SSIs? Before surgery: You may be asked to shower or bathe with a special soap that kills germs the night before and the day of surgery. Use the soap as you were told. If you smoke, stop or cut down. Ask your doctor about ways to quit. Do not shave near where you will have surgery. Shaving can irritate the skin and make it easier to get and infection. After surgery: Be sure that the doctors and nurses clean their hands before and after touching you. Be sure your family and friends clean their hands before and after visiting you. Do not be afraid to remind them. * Care for your wound at home as told by your doctor or nurse * Call your doctor right away if you have fever, redness, increased pain, or drainage at the surgery site. Further questions? Contact the doctor, nurse or the Infection Prevention and Control department if you have any questions. PATIENT RIGHTS AND RESPONSIBILITIES As a patient at [facility], you have the right to: Receive medical care and be informed of who is taking care of you Be treated with dignity and respect Have a family member/herbicide service sales representative of choice and your physician notified of your admission Receive information and actively participate in decisions about your care and treatment Refuse care, treatment and services Decide who may provide your support and speak for you Access rastafari and spiritual services Participate in ethical issues and questions about your care Receive private and confidential care Have appropriate assessment and management of your pain Know guest visitation restrictions or limitations Have an advance directive Access protective services Consent or refuse to participate in research studies or production or recordings, films or other images Have resolution of your complaints Receive information of hospital charges and payment methods Patient/patient herbicide service sales representative responsibilities are to: Provide information about health status to facilitate care, treatment and services Follow the treatment, plan, keep appointments and speak up when you do not understand the plan Respect the rights of other patients and healthcare personnel Follow organizational rules and regulations that support quality care and a safe environment Fulfill financial obligations as promptly as possible documented in this encounterProtestant Hospital09-05-2024 History of Present illness Narrative* Den Carpio MD - 01/04/2024 9:15 AM EDT [facility] Plastic & Reconstructive Surgery [address] Office Den Carpio MD, PhD Vasiliy Rae, VENEER CLIPPER HELPER-ASSEMBLING FABRICATOR Miracle Parekh PA-C Plastic Surgery New Patient Consultation Note Reason for visit : discuss breast reconstruction, right DCIS. undergoing bilateral mastectomies. History of present illness: Shari Hyde 43 y.o. is here today to discuss breast reconstruction. She has been referred by Dr. Freda Johnson. She notes a new right breast cancer diagnosis after mass noted on screening mammogram. This led to a workup of her tumor, and a biopsy was performed, which had pathology consistent with DCIS. She does not haveknown lymph node(s) involvement. She has seen Dr. Freda Johnson whom has plans for bilateral nipple sparing mastectomy. She did not require neoadjuvant chemotherapy. There are not plans for postoperative radiation. Patient has had genetic testing, which did not indicate she had a deleterious mutation. She currently wears a size C. Desires B cup size. She has had a history of benign breast masses. She has had previous breast surgery, lumpectomy/biopsy of left breast. Patient has not had a history of previous radiation to her bilateral breast(s). Family history is negative for breast disease and breast cancer. She has children. She did not breastfeed. She does not have any history of heart disease, lung disease or diabetes. She does not have a history of blood clots. She is not on anticoagulation. She does have a history of laparoscopic hysterectomy. She does not use nicotine products. Past Medical History: No past medical history on file. Past Surgical History: Past Surgical History: Procedure Laterality Date BREAST BIOPSY Allergies: No Known Allergies Social History: Social History Socioeconomic History Marital status: Spouse name: Not on file Number of children: Not on file Years of education: Not on file Highest education level: Not on file Occupational History Not on file Tobacco Use Smoking status: Not on file Smokeless tobacco: Not on file Substance and Sexual Activity Alcohol use: Not on file Drug use: Not on file Sexual activity: Not on file Other Topics Concern Not on file Social History Narrative Not on file Social Determinants of Health Financial Resource Strain: Not on file Food Insecurity: Not on file Transportation Needs: Not on file Physical Activity: Not on file Stress: Not on file Social Connections: Not on file Interpersonal Safety: Not on file Housing Instability: Not on file Family History: No family history on file. Current Medications: Current Outpatient Medications: buPROPion XL (WELLBUTRIN XL) 150 mg 24 hr tablet, Take 1 tablet (150 mg total) by mouth., Disp: , Rfl: cetirizine (ZyrTEC) 10 mg tablet, Take 1 tablet (10 mg total) by mouth., Disp: , Rfl: Review of Systems: Review of Systems Constitutional: Negative for chills, fatigue and fever. Respiratory: Negative for cough and shortness of breath. Cardiovascular: Negative for chest pain, palpitations and leg swelling. Endocrine: Negative. Musculoskeletal: Negative for arthralgias and myalgias. Skin: Negative for rash and wound. Neurological: Negative for weakness, light-headedness and headaches. Hematological: Negative for adenopathy. Does not bruise/bleed easily. Psychiatric/Behavioral: Negative. Physical Exam: Vital Signs: Vitals: 01/04/24 0915 BP: 112/79 Pulse: 81 Resp: 14 Weight: 70.3 kg (155 lb) Height: 177.8 cm (5' 10 ) BMI: Body mass index is 22.24 kg/m . Body habitus normal. General appearance - alert, well appearing, and in no distress Mental status - alert, oriented to person, place, and time Eyes - sclera anicteric Neck - supple Chest - non-labored breathing Heart - regular rate Abdomen - soft, nontender, nondistended. Abdominal donor site for NATALIYA free flap is 40-50%. Laparoscopic port site scars are well healed. No hernia or bulges present. Extremities - no lower leg edema; no ulcers. Thighs as donor site for free flap are adequate. Vascular- peripheral pulses intact. Focused examination: Breasts: Medium in size bilaterally, right slightly larger than left. Ptosis grade 2 bilaterally, similar on both sides. Contour normal bilaterally. Nipple areolar complex is normal sized. Left nipple inversion present. Skin exam shows skin to be intact.. Parenchymal palpation normal bilaterally. Nipple sensation is intact to light touch. Axillary fullness is mild. Her breast mass is not palpable. Intertriginous rash in inframammary folds absent. Shoulder grooves are not present. MEASUREMENTS: Left Right Base width: 13 cm Sternal Notch to Nipple: 24.5 cm 24 cm IMF to Nipple: 9 cm 9 cm Nipple to Nipple 17.5 cm Nipple-areolar diameter 5 cm 5 cm Female plastic products sales representative present: yes. Impression : 1. Ductal carcinoma in situ (DCIS) of right breast Plan: A long, detailed conversation was had regarding the patient s options for breast reconstruction. Five main points, which are explained to all breast reconstruction patients, were discussed: 1. Breast reconstruction is an optional process. 2. Breast reconstruction is a multi-stage process which involves multiple surgeries spaced several months apart. The entire process can take over one year. 3. The major goal of breast reconstruction is to have the patient look normal in clothing. When naked, there will always be scars and asymmetries, some of which may not be completely addressed with surgery. 4. Asymmetries are often present during the reconstruction process. Several operations may be needed, including surgery to the non-cancerous breast, to achieve satisfactory results. 5. No matter the reconstructive method, there are ways that the reconstruction can fail and a secondary reconstructive plan would need to be created. A general discussion regarding all available methods of breast reconstruction was had. The types ofreconstructions described included: 1. Two-stage and one-stage implant-based reconstruction. 2. Autologous-only reconstructions, including free abdominal tissue-based reconstructions. 3. Combination procedures, particularly latissismus dorsi flaps combined with either tissue expanders or implants. For each of the reconstruction methods mentioned above, the risks, benefits, alternatives, scarringand recovery time were discussed in great detail. Specific risks discussed included bleeding, infection, hematoma, seroma, scarring, pain, wound healing complications, asymmetry, cosmetic deformity, flap loss, fat necrosis, capsular contracture, implant rupture, need for implant removal, breast implant associated anaplastic large cell lymphoma, DVT/PE, pneumothorax, donor site complications, abdominal bulge, abdominal hernia, umbilical necrosis, need for urgent reoperation and need for dressingchanges. With respect to reconstruction involving breast implants, we discussed that breast implant-associated anaplastic large cell lymphoma (MEENAKSHI-ALCL) is a rare and treatable type of T-cell lymphoma that can develop around breast implants. MEENAKSHI-ALCL is not a cancer of the breast tissue itself. According tothe most recent data available, the risk of association between breast implants and ALCL is extremely low. The current lifetime risk of MEENAKSHI-ALCL in the [place] is estimated to be 1:30,000 womenwith textured implants based upon current confirmed cases. We discussed that if the patient has anyfurther questions on this subject, that she should not hesitate to inquire with me. Once all reconstruction options were presented, a focused discussion was had regarding the patient's suitability for each of these procedures. I discussed that the patient would be a candidate for: Latissimus Only - no Latissimus With Tissue Die Fitter/Implant - no Abdominal Flap - yes Tissue Die Fitter to Implant - no Direct to Implant - yes Oncoplastic Procedure - no We will plan for immediate bilateral breast reconstruction with placement of cohesive silicone implants and inferior de ep autoderm flap and AlloDerm placement at the time of her surgery with Dr. Freda Johnson. From a plastic surgery standpoint, she is a skin sparing mastectomy candidate. All questions were answered to her satisfaction. She was counseled regarding my impressions, instructions for management and the importance of compliance with treatment. We will proceed to schedule/coordinate with Dr. Freda Johnson.Photographs were obtained today for documentation. We will request medical clearance from her primary care physician. The patient will need to return to clinic for a preoperative history and physical examination a few weeks before surgery. - Vasiliy Rae APRN-ASSEMBLING FABRICATOR 01/04/24 10:22 AM IDEN MD, PHD personally performed the face to face evaluation on this patient. I discussed with the patient and confirmed the accuracy and completeness of the aforementioned history,and I personally performed the clinical examination of the patient. I have established and discussed the course of treatment with the patient. Den Carpio MD, PhD [facility] Total time spent was 50 minutes: Preparing to see the patient (e.g., review of tests) Obtaining and/or reviewing separately obtained history Performing a medically appropriate examination and/or evaluation Counseling and educating the patient/family/caregiver Ordering medications, tests, or procedures Referring and communicating with other health associate director career services (not separately reported) Documenting clinical information in the electronic or other health record Independently interpreting results (not separately reported) and communicating results to the patient/family/caregiver Care coordination (not separately reported) Please note that portions of this note were generated using voice recognition [employer] dictation software. Although every effort was made to ensure the accuracy of this automated wireless manager, some errors in wireless manager may have occurred. documented in this encounterProtestant Hospital08-26-2024 History of Present illness Narrative* Freda Johnson MD - 12/25/2023 12:00 PM EDT Images from the original note were not included. 12/25/23 DIAGNOSIS: Shari Hyde is a 43 y.o. female who presents to the Breast Surgery Office for evaluation and recommendations regarding her recently diagnosed right breast ductal carcinoma in situ (DCIS). HISTORY OF PRESENT ILLNESS (HPI): Shari Hyde is a 43 y.o. female who was found to have abnormal findings in the right breast seen on screening mammogram. Patient had bilateral screening mammogram at [facility] on 12/07/2022, imaging showed scattered partially circumscribed masses versus cysts are barely described withinthe very dense breast parenchyma. No significant change has occurred. Spot magnification views and ultrasound evaluation recommended. Bilateral diagnostic mammogram was performed on 12/20/2022, which showed in the right breast spot magnification views fail to provide better delineation of multiple hyper dense areas/masses/ cysts within both breasts. Ultrasound evaluation is recommended. Bilateral b reast ultrasound was performed on 02/02/2023, which showed on the right hypoechoic lesion at the 10:00 position measuring 0.9 x 0.9 x 0.7 cm. Hypoechogenic lesion at the 12:00 position measuring 1.0 x0.8 x 0.6 cm. Septated cystic lesion at the 11:00 position measuring 4.1 x 2.8 x 1.4 cm. Additional anechoic areas measuring up to 2.4 cm, simple cysts. On the left complex cystic lesions 11:00 position measuring 1.0 x 0.8 x 0.6 cm. At the 12:00 position lobular cystic lesion measuring 1.4 x 1.3 x 0.8 cm. At the 1:00 position septated cystic lesion measuring 1.7 x 1.7 x 0.9 cm. None of the lesions demonstrate vascular flow. 6 month follow up ultrasound was recommended. Bilateral diagnostic mammogram and bilateral breast ultrasound was performed on 10/20/23. Imaging showed new cluster of pleomorphic micro calcifications identified at the 12:00 position, posterior breast. Stereotactic biopsy is recommended. Multiple benign appearing cystic lesion on ultrasound. Left breast shows no significant suspicious finding. Multiple benign appearing cystic lesions on ultrasound. Stereotactic biopsy was performed on 11/07/23, Pathology revealed DCIS. Patient met with medical oncology on 11/21/23. Patient also had genetic testing, results show negative no mutation detected. Patient had Pet CT on 12/11/23, which showed hypermetabolic right breast nodule consistent with malignancy. Hypermetabolic rightsubpectoral lymph node consistent with metastatic disease . No distant metastases Patient scheduledfor breast MRI on 01/04/24. Patient presents for evaluation for surgical management of newly diagnosed breast findings. She denies weight loss, bone pain, vision changes, headaches, and abdominal pain. Shari has had longstanding problems with breast imaging and bilateral symptoms related to extensive cystic disease bilaterally. She has been undergoing frequent mammograms and whole breast ultrasound for surveillance of her cyst roughly every 6 months. After her diagnosis of ductal carcinoma in-situ, she strongly desired mastectomy for treatment as well as contralateral risk reducing mastectomy.She was referred to me by her medical oncologist for 2nd opinion regarding those procedures. GYNECOLOGICAL HISTORY & RISK ASSESSMENT: Hysterectomy for benign indications, unknown LMP. Menarche greater than 13. OCP for 10 years. ,[age] at 1st delivery. Did not breastfeed. Had a hysterectomy and unilateral salpingo-oophorectomy.No menopausal symptoms. No hormones currently. Left fibroadenoma excised in a proximally 2013. HEALTH HISTORY: The patient's past medical history, medications, and allergies have been reviewed in [facility]. PAST MEDICAL HISTORY: History reviewed. No pertinent past medical history. History reviewed. No pertinent past medical history. PAST SURGICAL HISTORY: Past Surgical History: Procedure Laterality Date BREAST BIOPSY Laparoscopic cholecystectomy, laparoscopic hysterectomy and unilateral salpingo-oophorectomy MEDICATIONS: Current Outpatient Medications: buPROPion XL (WELLBUTRIN XL) 150 mg 24 hr tablet, Take 1 tablet (150 mg total) by mouth., Disp: , Rfl: cetirizine (ZyrTEC) 10 mg tablet, Take 1 tablet (10 mg total) by mouth., Disp: , Rfl: Reviewed ALLERGIES: No Known Allergies NKDA FAMILY HISTORY History reviewed. No pertinent family history. SOCIAL HISTORY REVIEW OF SYSTEMS: A review of systems was performed. Pertinent patient information is noted below: Review of Systems Constitutional: Negative for chills, diaphoresis, fatigue, fever and unexpected weight change. HENT: Negative for congestion, hearing loss, rhinorrhea, sore throat and trouble swallowing. Eyes: Negative for pain, discharge and visual disturbance. Respiratory: Negative for cough, chest tightness, shortness of breath and wheezing. Cardiovascular: Negative for chest pain and palpitations. Gastrointestinal: Negative for abdominal distention, abdominal pain, constipation, diarrhea and nausea. Genitourinary: Negative for dysuria, frequency and hematuria. Musculoskeletal: Negative for arthralgias, back pain, gait problem and myalgias. Skin: Negative for rash and wound. Neurological: Negative for dizziness, syncope, weakness and headaches. Hematological: Negative for adenopathy. Does not bruise/bleed easily. Psychiatric/Behavioral: Negative for confusion and sleep disturbance. The patient is not nervous/anxious. BREASTS: Bilateral palpable masses and discomfort secondary to cysts PHYSICAL EXAMINATION PHYSICAL EXAM: Vitals: BP 129/85 (BP Site: Left Arm, BP Postition: Sitting, BP CUFF SIZE: M (9- 13 inches)) [id number] Resp 18 Ht 177.8 cm (5' 10 ) Wt 70.3 kg (155 lb) BMI 22.24 kg/m Weight: Weight: 70.3 kg (155 lb) General Appearance: Shari is a well-appearing female who is in no acute distress. Head: Normocephalic, without obvious abnormality, atraumatic Neck: There is no appreciable lymphadenopathy in the cervical, supraclavicular, and infraclavicularlymph node basins. Breast: Examined in upright and supine position, nipples normal without inversion, lesions or discharge, no skin dimpling or peau d'orange, breasts symmetric in size and contour, dense fibroglandulartissue throughout and mild biopsy site change, axillary exam unremarkable bilaterally Pulmonary: Respirations unlabored Cardiac: Regular rate Abdomen: Abdomen is soft without significant tenderness, masses, organomegaly or guarding. Extremities: Extremities normal, atraumatic, no cyanosis or edema Psychologic: Appropriate affect RADIOGRAPHIC IMAGING BREAST IMAGING reviewed and discussed with the patient: PATHOLOGY The following pathology reports were reviewed and discussed with the patient: ASSESSMENT AND PLAN: DIAGNOSIS: ICD-10-CM 1. Ductal carcinoma in situ (DCIS) of right breast D05.11 Shari Hyde is a 43 y.o. female with clinical stage 0, right breast DCIS. PLAN OF CARE: 1. Surgery. In the terms of the surgical management of her breast cancer, we discussed both breast conservationsurgery--lumpectomy coupled with whole breast radiation - and mastectomy. She was advised that the overall survival is equivalent between these two treatments, although the local recurrence rate is slightly higher in the lumpectomy group. She is a candidate for lumpectomy. Localization would be necessary as the lesion is not palpable. Given her longstanding history of ambiguous imaging findings, the need for short interval imaging, biopsies, etc., she wishes to discuss mastectomy for surgical treatment of her ductal carcinoma in-situ of the right breast. We discussed at length fat mastectomy is not superior oncologic care when apatient is a candidate for breast conservation surgery and adjuvant radiotherapy. It does not provide a survival advantage and the local regional recurrence rates are similar between the 2 procedures. It does however decreased risk of a 2nd primary ipsilateral breast cancer, which is already quite low in the absence of a germline mutation. She understands that it is still possible to have a breast cancer recurrence on the skin flap of the chest wall, and it is possible to develop a 2nd primary in the ipsilateral breast. She also discussed the desire to move for with contralateral risk-reducing mastectomy. After discussing the same limitations and reviewing the risk of a contralateral primary breast cancer which would be approximately 4% pr 10 year time period, she voiced understanding andwishes to proceed. We discussed options for closure of the skin flaps following mastectomy including flat aesthetic closure, implant based reconstruction, or autologous tissue reconstruction. She will be referred to our reconstructive surgeon to continue this discussion. We also discussed the option of skin sparing versus nipple sparing mastectomies. As long as there is no disease abutting the nipple- areolar complex on MRI, she would be a nipple sparing candidate from an oncologic perspective. I would defer to the plastic surgeon regarding the size and degree of ptosis. 2. Axillary Staging. As DCIS is non-invasive, the role of axillary staging depends on lesion characteristics and final pathology. In the setting of lumpectomy, axillary staging is not required; however, if high-risk and/or suspicious characteristics are present or if invasive disease is found on final pathology of the lumpectomy specimen, then axillary staging would be warranted via sentinel lymph node biopsy (SLNB).In the setting of mastectomy for DCIS, Magtrace may be used for intraoperative lymphatic mapping tofacilitate delayed sentinel node biopsy should invasive disease be found on final surgical pathology. If the SLNB is performed and found to be positive for cancer, then additional axillary surgery may be warranted in the form of an axillary lymph node dissection (ALND). 3. Systemic Chemotherapy. As DCIS is non-invasive, systemic chemotherapy is not warranted. If an invasive component is found on final pathology, this will be readdressed and she will be evaluated by medical oncology for recommendations. 4. Radiation. Radiation is an integral component of breast conservation. Radiation in the setting of mastectomy for DCIS, although possible, is less likely. She will be evaluated by our radiation oncologists at the appropriate time, if consideration of radiation is recommended. 5. Endocrine Therapy. The receptor status has revealed she is hormone receptor positive therefore, she is a candidate forendocrine therapy. Recommendations and management will be under the guidance of medical oncology atthe appropriate time, following completion of all other required treatments. 6. Genetics. Seventy gene [employer] testing negative for pathogenic mutations. 7. Medical Comorbidities. 8. Systemic staging. She had a PET scan which showed a mildly PET avid ipsilateral subpectoral lymph node. I believe that this may be physiologic as it would be very unusual to have subpectoral nodaldisease in the setting of noninvasive cancer. I feel the MRI will be useful to evaluate that kaz station further as well as to rule out any mammogram-occult invasive disease. She understands that if there are any enhancement kinetics concerning for invasion on her breast MRI, a 2nd biopsy may be warranted. A follow-up PET may be necessary based on final surgical pathology to document stability or regression of this mildly avid subpectoral node. Based on this discussion in clinic with the patient, the following plan has been made: MRI 9/5 Right skin sparing possible nipple sparing mastectomy with injection of Mag trace for intraoperative lymphatic mapping and potential delayed sentinel lymph node biopsy should invasive disease be found on final surgical pathology, left risk-reducing skin sparing possible nipple sparing mastectomy Referral to PRS - no PMRT anticipated, ok for NSM pending MRI results Med onc - Dr. Matthews Genetics negative [] MRI [] MBI [] Axillary ultrasound - [] Right [] Left [] Genetic counseling - [] Defer [] Medical Oncology - [] Pre-operative [] Post-operative [] Radiation Oncology - [] Pre-operative [] Post-operative [] Plastic Surgery [] SOZO [] Magseed placement - [] Breast [] Axilla [] Nutrition counseling - [] Defer [] Cardiac evaluation [] Pulmonary evaluation [] Preoperative medical optimization - PCP [] Perioperative anticoagulation management - Jobst [] Social work [] Systemic staging - [] PET [] CT C/A/P + Bone Scan [] MRI Brain She was informed of the general risks of surgery, including, but not limited to infection; bleedingor hematoma including the need for re-operation; seroma (fluid collection below the incision); scarring, including permanent retraction of the breast over the biopsy site or nipple deviation; recurrence; pain/discomfort; non-diagnostic procedure; movement or dislodgement of localization wire (if used); need for additional tests/procedures; risks of anesthetic. . She voiced understanding of these risks. All questions were answered to her satisfaction. She has elected to proceed with surgical sche duling. Informed consent was obtained and documented. The patient was advised to hold Aspirin, NSAIDs (examples of some forms: Motrin, Aleve, Advil, Naproxen), Fish Oil and Vitamin E products for one week before an after her surgery. The patient was informed that she will be contacted by the surgical garment assembly supervisor to confirm a surgery date, post operative clinic appointment and with further surgery instructions. The patient verbalized understanding of the treatment plan and was encouraged to contact the clinicwith any questions or concerns. Total time spent was 80 minutes: Preparing to see the patient (e.g., review of tests) Obtaining and/or reviewing separately obtained history Performing a medically appropriate examination and/or evaluation Counseling and educating the patient/family/caregiver Ordering medications, tests, or procedures Referring and communicating with other health associate director career services (not separately reported) Documenting clinical information in the electronic or other health record Independently interpreting results (not separately reported) and communicating results to the patient/family/caregiver Please note that portions of this note were generated using voice recognition M*Modal dictation software. Although every effort was made to ensure the accuracy of this automated wireless manager, some errors in wireless manager may have occurred. Freda Johnson MD Breast Surgical Oncology [facility] [phone] documented in [facility]24 NoteGeneral Surgery Office/Clinic Note Chief Complaint consultation for right breast DCIS [facility] Staff 43 year old female presents on consultation from Dr. Nava for DCIS right breast. Denies noting palpable lump. Denies breast pain. Denies skin changes other than bruising and swelling post biopsy. Denies nipple discharge or inversion. No known family history of colon cancer. History of Present Illness 43 yo female with h/o asthma, anxiety, fibrocystic disease of breasts, referred for newly diagnosedDCIS of right breast; patient had new area of pleomorphic microcalcifications in the right breast, deep at 12 o'clock position; patient underwent stereotactic breast biopsy that revealed 7 mm area ofDCIS, with cribriform areas and foci of comedo necrosis, no invasive component; patient has discontinued her ocp, no other hormone therapy; h/p left breast biopsy for fibroadenoma, and long h/o densebreast tissue with fibrocystic change; no breast pain, no skin or nipple changes; no fmhx of breastor ovarian cancers; no tobacco use; no asa [...] swallowing difficulties, no hearing loss, no ear infection(s),no nose bleeds. Cardiovascular: normal blood pressure, no [...] this option regardless of the results, due tohere dense breast tissue, fibrocystic change, and need [...] Diffuse cystic mastopathy of left breast) Orders: [facility] External Ambulatory Referral Follow-up No qualifying data a (more content not included)...[facility] Comment on above:Result Comment: Electronically Signed By: LORELEI GUIDRY, Pasquale Salas\Date and Time Signed: 12/01/23 15:07 [id number] Evaluation note* Encounter Date Diagnosis Assessment Notes Treatment Notes Treatment Clinical Notes Jun, Cough (ICD-10 - R05.9) covid [...] (ICD-10 - J02.9) strep neg, see above. 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, bilateral S/P breast reconstruction, bilateral [facility]* Diagnosis Encounter for postoperative care- Primary S/P breast reconstruction, bilateral Acquired absence of breast, bilateral [facility]* Diagnosis Pre-op testing- Primary Unspecified pre-operative examination [facility]* Diagnosis Ductal carcinoma in situ (DCIS) of right breast- Primary Postoperative visit Status post bilateral mastectomy Acquired absence of breast and nipple documented [facility]* Diagnosis S/P breast reconstruction, bilateral- Primary [facility]* Diagnosis Ductal carcinoma in situ (DCIS) of right breast documented [facility]* Diagnosis Pre-op evaluation- Primary Breast asymmetry following reconstructive surgery [facility]* Diagnosis History of right breast cancer- Primary Breast asymmetry following reconstructive surgery [facility]* Diagnosis Encounter for postoperative care- Primary S/P breast reconstruction, bilateral Acquired absence of breast, bilateral History of right breast cancer [facility]* Diagnosis Breast asymmetry following reconstructive surgery- Primary History of right breast cancer [facility] Narrative - Reported* Type Description Date Medical History Anxiety Medical History Depression Surgical History hysterectomy Surgical History laparoscopy Hospitalization History No know Hospitalization history [employer] Other Hospital course Narrative No data available for this section [facility] General Surgery [facility] Discharge instructions No data available for this section [facility] General Surgery [place] InstructionsNot on filedocumented in this encounter [facility] filedocumented in this encounter [facility] filedocumented in this encounter [facility] on filedocumented in this encounter [facility] on filedocumented in this encounter [facility] on filedocumented in this encounter [facility] on filedocumented in this encounter [facility]Not on filedocumented in this encounter [facility]Not on filedocumented in this encounter [facility]ructionsNot on filedocumented in this encounter [facility] No data available for this section [facility] Reason for referral (narrative) Referred by: Pasquale MOSELEY MD [facility] Reason for referral (narrative)* Consultation (Routine) - Pending Review Specialty Diagnoses / Procedures Referred By Contact Referred To Contact Plastic & Reconstructive Surgery Diagnoses Ductal carcinoma in situ (DCIS) of right breast Freda Johnson MD [address] [place] [phone] 2 Plastic Surg-[facility] [address] [place] [phone] Referral ID Status Reason Start Date Expiration Date Visits Requested Visits Authorized [id number] Pending Review Specialty Services Required 12/25/2023 12/24/2024 1 [facility] Consultation (Routine) - Pending Review Specialty Diagnoses / Procedures Referred By Contact Referred To Contact Plastic & Reconstructive Surgery Diagnoses Ductal carcinoma in situ ([place]) [place] [address] [place] [phone] Phone: tel:[phone] fax:[phone] [facility] [address] [place] [phone] Phone: tel: fax: Referral ID Status Reason Start Date Expiration Date Visits Requested Visits Authorized [id number] Pending Review Specialty Services Required 12/25/2023 12/24/2024 1 1 [facility] Summary Purpose Family History No Family History Records Found Relationship Condition Age at Onset Recorded Date/T chris father Malignant neoplasm Unknown Advance Directives No Advanced Directives Records Found Advance Directive Response Recorded Date/ Time Advance Directives No June 1:28pm Advance Directive Response Recorded Date/ Time Advance Directives No June 12:28pm Chief Complaint and Reason for Visit Chief Complaint Sore throat, congest ion Chief Complaint Sore throat, congest ion Unknown Chief Complaint Admit Date headache, body aches May 14, 2024 9:23am Chief Complaint Admit Date headache, body aches May 14, 2024 9:23am Sore throat, headache, earache June 9:11am Reason for Visit Admit Date Influenza A May 14, 2024 9 :23am URI (upper respiratory infection) July 07, 2024 9:11am Additional Source Comments REASON FOR VISIT (unrecogniz ed section and content) Reason Comments Consult Newly dx right DCIS Specialty Diagnoses / Procedures Referred By Joanna coffman Referred To Contact Breast Surgery Diagnoses Ductal carcinoma in situ (DCIS) of right breast Ade Matthews MD [address] [place] [id number] Freda Johnson MD [address] [place] [phone] Referral ID Status Reason Start Date Expiration Date V isits Requested Visits Authorized [id number] Pending Review 12/13/2023 12/12/2024 1 1 Reason Comments Post-op Reason Comments PRE-OP VISIT Reason Comments Follow-up Reason Comments Post-op Sx: 08/23; Mastopexy INFORMATION SOURCE (unrecogn ized section and content) DATE CREATED AUTHOR 08/09/2022 [facility] [place] [facility] DATE CREATED AUTHOR AUTHOR'S ORGANIZ ATION 11/14/2023 [facility] DATE CREATED AUTHOR AUTHOR'S ORGANIZ ATION 12/03/2023 [facility] DATE CREATED AUTHOR AUTHOR'S ORGANIZ ATION 10/04/2024 [facility] DATE CREATED AUTHOR AUTHOR'S ORGANIZ ATION 11/23/2024 [facility] Care Teams (unrecognized sec tion and content) Team Status: Active Member Role Status Dates Sandrine Nava MD Primary Care Provider Active Team Status: Inactive Member Role Status Dates Sandrine Nava MD Primary Care Provider Active Start: August 20, 2023 End: August 20, 2023 Francisca Silvestre APRN Attending Provider Active Start: August 20, 2023 End: August 20, 2023 Team Status: Inactive Member Role Status Dates Sandrine Nava MD Attending Provider Active Sta rt: November 07, 2023 End: November 07, 2023 Team Status: Inactive Member Role Status Dates Shayna Santos APRN Attending Provider Active Start: May 14, 2024 End: May 14, 2024 Sandrine Nava MD Primary Care Provider Active Start: May 14, 2024 End: May 14, 2024 Newspaper Writer Relationship Specialty Start Date End [place] [address] PCP - General Family Medicine 01/18/24 Newspaper Writer Relationship Specialty Start Date End Date Sandrine Nava MD [address] [facility], [place] [address] PCP - General Family Medicine 01/18/24 Newspaper Writer Relationship Specialty Start Date End [place] [address] PCP - General Family Medicine 01/18/24 Newspaper Writer Relationship Specialty Start Date End Date Sandrine Nava MD [address] [facility], [place] [address] PCP - General Family Medicine 01/18/24 Newspaper Writer Relationship Specialty Start Date End Date Sandrine Nava MD [address] [facility], [place] [address] PCP - General Family Medicine 01/18/24 Team Status: Inactive Member Role Status Dates Sandrine Nava MD Primary Care Provider Active Start: July 07, 2024 End: July 07, 2024 Johanna Sweeney APRN Attending Provider Active Start: July 07, 2024 End: July 07, 2024 Newspaper Writer Relationship Specialty Start Date End Date Sandrine Nava MD [address] [facility], [place] [address] PCP - General Family Medicine 01/18/24 Newspaper Writer Relationship Specialty Start Date End Date Sandrine Nava MD [address] [facility], [place] [address] PCP - General Family Medicine 01/18/24 Newspaper Writer Relationship Specialty Start Date End Date Sandrine Nava MD [address] [facility], [place] [address] PCP - General Family Medicine 01/18/24 Newspaper Writer Relationship Specialty Start Date End Date Sandrine Nava MD [address] [facility], [place] [address] PCP - General Family Medicine 01/18/24 Goals (unrecognized section and content) Goals may [...] BE BASED ON THE PRIMARY CLINICAL RECORDS. [facility] [employer] [facility]. provides no warranty or guarantee of the accuracy or completeness of [phone] in [phone] [id number]
[2024-11-29 07:00] LABS: Hematocrit 43.8 % (36.0-48.0); Hemoglobin 14.7 g/dL (12.0-16.0); Immature Granulocytes Abs Auto 0.01 10^3/uL (0.00-0.03); Immature Granulocytes Pct Auto 0.2 % (0.0-0.5); Lymphocytes Absolute Auto 2.5 10^3/uL (1.2-3.8); Mean Corpuscular HGB Conc 33.6 g/dL (29.9-35.2); Mean Corpuscular Hemoglobin 29.4 pg (26.7-34.0); Mean Corpuscular Volume 87.6 fL (81.0-99.0); Platelet Count 214 10^3/uL (150-450); Red Blood Count 5.00 10^6/uL (4.20-5.40); White Blood Count 5.8 10^3/uL (4.0-11.0)
[2024-11-29 07:54] LABS: Alanine Aminotransferase 22 U/L (14-59); Albumin Globulin Ratio 1.2; Albumin Level 4.0 g/dL (3.4-5.0); Alkaline Phosphatase 57 U/L (46-116); Anion Gap 10.7; Aspartate Amino Transferase 55 U/L (15-37); Blood Urea Nitrogen 24.0 mg/dL (7.0-18.0); Calcium 9.8 mg/dL (8.5-10.1); Carbon Dioxide 29.5 mmol/L (21.0-32.0); Chloride 106 mmol/L (98-107); Cholesterol 192 mg/dL (<=200); Estimated GFR (African America >60 (>=60 mL/min/1.73m^2); Estimated GFR (Non-African Ame >60 (>=60 mL/min/1.73m^2); Free T3 2.27 pg/mL (2.18-3.98); Globulin 3.4 g/dL; Glucose 92 mg/dL (74-106); HDL Cholesterol 77 mg/dL (40-60); Potassium 4.2 mmol/L (3.5-5.1); Sodium 142 mmol/L (136-145); Thyroid Stimulating Hormone 2.515 uIU/mL (0.358-3.740); Total Protein 7.4 g/dL (6.4-8.2); Triglycerides 77 mg/dL (<=150); VLDL CHOLESTEROL 15.4 mg/dL
== END 2024-11-29 06:48 | disposition home or self-care (01) ==
LOC: LAB 06:49
PROVIDERS: PCP Family Medicine; Visit Provider Family Medicine
DX: Z00.00 Encounter for general adult medical examination without abnormal findings (principal)
CPT/HCPCS: 36415; 80053; 80061; 83036; 84436; 84443; 84481; 85025